=== PATIENT | female | born 1975 | race Caucasian/White ===

== ENCOUNTER → 2016-06-23 | Outpatient (CLI) | payer BC ==
[2016-06-23 09:13] VITALS: BP 181/79; PULSE 93; RESP 16; TEMP 98; BMI 61.9
--- NOTE | 2016-06-23 12:17 | P.GSHP ---
History of Present Illness H&P Date: 06/23/16 Chief Complaint: Morbid Obesity BMI The patient is a 40 year-old F who presents for bariatric surgery consultation. She has chosen to undergo lap RYGB. She had a lap [place] in [address] Davila. Her weight at surgery was 293lbs. she continued to gain more weight in spite of band adjustments. She continued to have reflux nausea and vomiting and lap band was removed in January 2016. Patient denies any reflux symptoms at this time. No right upper quadrant pain. Her comorbid conditions including type 2 diabetes mellitus on insulin pump and gastroesophageal reflux disease and hypercholesterolemia . She has experienced rapid weight gain since Contrave was discontinued in January 2016. Reports hunger and cravings. Work up included: Gastric emptying study showing gastroparesis 24 hr Ph -normal Manometry- mild dysfunction Mammogram- Benign Height 5 feet 1 and half inch, Preop visit #1 weight 302.2 pounds, 140.25 KG, BMI 58.4 Preop visit #2 weight 136.07KG, BMI 55.8 Preop visit #3 weight 151.04KG, BMI 61.9 - Review of Systems Comment: Constitutional: Denies fever, weight loss or loss of appetite HEENT: No difficulty in vision or hearing. Denies dysphagia. Cardiovascular: Denies chest pain, palpitations, dizziness, shortness of breath. Respiratory: No cough or shortness of breath Gastrointestinal: No change in bowel habits Integumentary: No skin ulcers or breakdown. Genitourinary: No urinary incontinence, hematuria or dysuria Neurologic: No seizures, denies weakness in upper or lower extremities Musculoskeletal: Occasional left knee pain. Psychiatry: Known history of depression, no suicidal ideation, no anxiety or psychosis Past Medical History Past Medical History: Diabetes Mellitus Additional Past Medical History / Comment(s): Type 2(USES INSULIN PUMP) History of Any Multi-Drug Resistant Organisms: None Reported Past Surgical History: Bariatric Surgery, Section Additional Past Surgical History / Comment(s): LAP BAND 2002, , LAP BAND REMOVED Past Anesthesia/Blood Transfusion Reactions: No Reported Reaction Past Psychological History: Depression Smoking Status: Never smoker Past Alcohol Use History: Rare Past Drug Use History: None Reported - Past Family History Father Family Medical History: No Reported History Mother Family Medical History: No Reported History Medications and Allergies Home Medications Medication Instructions Recorded Confirmed Type Biotin 5 mg PO HS 01/06/16 06/23/16 History Cetirizine HCl [Zyrtec] 10 mg PO DAILY 01/06/16 06/23/16 History Cholecalciferol (Vitamin D3) 1,000 unit PO DAILY 01/06/16 06/23/16 History [Vitamin D3] Escitalopram [Lexapro] 10 mg PO HS 01/06/16 06/23/16 History INSULIN LISPRO (HumaLOG) [HumaLOG] See Protocol SQ CONTINUOUS 01/29/16 06/23/16 History Multivitamins, Thera [Multivitamin] 1 tab PO DAILY 06/23/16 06/23/16 History buPROPion [Wellbutrin] 100 mg PO DAILY 06/23/16 06/23/16 History Allergies Allergy/AdvReac Type Severity Reaction Status Date / Time No Known Allergies Allergy Verified 06/23/16 09:18 Surgical - Exam Vital Signs Temp Pulse Resp BP 98.0 F 93 16 181/79 06/23/16 09:10 06/23/16 09:10 06/23/16 09:10 06/23/16 09:10 General: Patient is alert and oriented to time, place and person and cooperative with exam. He is not in acute distress. HEENT: No pallor, no icterus, no thyroid enlargement, no cervical lymphadenopathy. Chest: Bilateral equal breath sounds present. No wheezes, no crackles. Cardiovascular: Regular rate and rhythm. Abdomen: Soft, nontender, nondistended. No right upper quadrant tenderness. Quintero sign negative. Well-healed surgical scars located at the umbilicus and both groins. Integumentary: Bilateral lower extremity chronic venous dermatitis. No active ulcers or discharge. Neurologic: Cranial nerves II-XII intact. Strength upper and lower extremities 5/5. No focal neurologic deficits. Gait is normal. Psychiatric: No anxiety or psychosis. No suicidal thoughts. Assessment and Plan (1) Hypercholesteremia Status: Acute (2) Type 2 diabetes mellitus Status: Acute (3) Depression Status: Acute (4) Morbid obesity with BMI of 60.0-69.9, adult Status: Acute (5) Gastroparesis Status: Acute Plan: 1. 40 years old female status post lap band removal for nausea/vomiting and unsuccessful weight loss presents to discuss about revisional bariatric procedure-LAP RYGB 2. CBC, CMP, prealbumin, mineral and vitamin levels and hemoglobin A1c-6.6 3. EGD with possible biopsy- H.pylori negative 4. Gastric emptying study -gastroparesis 5. pH and manometry study : Some evidence of mild esophageal gastric junction outflow obstruction. Demeester score normal i.e no reflux 6. Sleep studies-pending 7. Psychiatric or psychological evaluation pending 8. Encourage attending bariatric support meeting 9. Discussed about small portion sizes, low carbohydrate, high protein drink 10. Daily multivitamin 11. Discussed with Dr. Charlotte Madden regarding rapid weight gain after Contrave was discontinued in January. Patient given referral for wellness clinic and restart Contrave . 12. Tentative surgery date July 2016
== END | disposition home or self-care (01) ==
LOC: BARWHC3 08:18
PROVIDERS: ATTEND Surgery
DX: Z01.818 Encounter for other preprocedural examination (principal); E66.01 Morbid (severe) obesity due to excess calories; Z68.44 Body mass index [BMI] 60.0-69.9, adult; E11.9 Type 2 diabetes mellitus without complications; Z99.89 Dependence on other enabling machines and devices; Z79.4 Long term (current) use of insulin; Z79.899 Other long term (current) drug therapy; E78.00 Pure hypercholesterolemia, unspecified; F32.9 Major depressive disorder, single episode, unspecified; K31.84 Gastroparesis; Z98.84 Bariatric surgery status
CPT/HCPCS: 99211

== ENCOUNTER → 2016-06-28 | Outpatient (CLI) | payer BC ==
[2016-06-28 13:42] VITALS: BMI 61.0
== END | disposition home or self-care (01) ==
LOC: BARWHC3 13:04
PROVIDERS: ATTEND Surgery
DX: Z71.3 Dietary counseling and surveillance (principal); E66.01 Morbid (severe) obesity due to excess calories; Z68.44 Body mass index [BMI] 60.0-69.9, adult

== ENCOUNTER → 2016-06-29 | Outpatient (CLI) | payer BC ==
--- NOTE | 2016-06-29 21:07 | CONS ---
DATE OF CONSULTATION: REASON FOR CONSULTATION: Sleep apnea. 40-year-old morbidly obese female patient is seeking bariatric surgery and she is considering gastric bypass by Dr. Roman. She is diabetic and she has also chronic anxiety/depression. She is morbidly obese. She has gained a significant amount of weight over the years, and currently she weighs around 334 pounds. She snores. She has nocturia, and she occasionally sleep walks. No major hypersomnia and sleepiness during the day. She goes to bed around 9:30 p.m., wakes up at 5:30 a.m. in the morning. 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 She averages around seven and a half to 8 hours of sleep every night. She wakes up a few times for urination. No restlessness in the lower extremities. No grinding of the teeth. [employer] score is 14. PAST MEDICAL HISTORY: Morbid obesity and diabetes mellitus. PAST SURGICAL HISTORY: Lap band insertion and removal. Drug allergies are not known. Outpatient medication list includes: 1. Insulin pump. 2. Zyrtec. 3. Lexapro. 4. Wellbutrin. 5. Multivitamin. 6. Ultram. 7. Biotin. SOCIAL HISTORY: Nonsmoker, no history of alcohol, no history of IV drugs. She is a schoolteacher. FAMILY HISTORY: Family history is negative for sleep apnea. REVIEW OF SYSTEMS: Twelve-point review of systems was done and the positive findings were all mentioned above in the history of present illness. Her current vital signs are as follows: BP is 136/70, pulse is 70, respirations 12 and temperature 98.5. Saturation 95% on room air. Weight is 334. Height is 61-1/2 inches. [employer] score is 14. Neck size is 16-1/2 inches. GENERAL APPEARANCE: Calm, comfortable. HEENT: Short neck, crowding of the posterior pharynx. There is no goiter or neck masses. LUNGS: Clear to auscultation. HEART: Sounds are regular rate and rhythm. Normal S1, S2. No S3, no S4, no murmurs. ABDOMEN: Morbidly obese, soft, nontender. No direct tenderness. No rebound tenderness or guarding. Extremities: No edema. No cyanosis, or clubbing. IMPRESSION: 1. Obstructive sleep apnea suspected based on symptoms and anatomic features, further investigations will be needed to evaluate obstructive sleep apnea. 2. Morbid obesity, body mass index 62. 3. Diabetes mellitus. PLAN: 1. Proceed with a screening polysomnogram. 2. Results will be discussed with Dr. Roman from bariatric surgery. 3. We will continue to follow.
== END | disposition home or self-care (01) ==
LOC: SLEEP 15:07
PROVIDERS: ATTEND Internal Medicine Critical Care Medicine
DX: G47.33 Obstructive sleep apnea (adult) (pediatric) (principal); E66.01 Morbid (severe) obesity due to excess calories; Z68.44 Body mass index [BMI] 60.0-69.9, adult; E11.9 Type 2 diabetes mellitus without complications; F41.8 Other specified anxiety disorders; F51.3 Sleepwalking [somnambulism]; Z79.4 Long term (current) use of insulin; Z79.899 Other long term (current) drug therapy
CPT/HCPCS: 99211

== ENCOUNTER → 2016-08-25 | Outpatient (CLI) | payer BC ==
[2016-08-25 09:11] VITALS: BP 161/89; PULSE 94; RESP 16; TEMP 97.9; BMI 61.2
--- NOTE | 2016-09-01 17:16 | P.GSHP ---
History of Present Illness H&P Date: 08/25/16 Chief Complaint: Morbid Obesity BMI 59 The patient is a 40 year-old F who presents for bariatric surgery consultation. She has chosen to undergo lap RYGB. She had a lap [place] [address] Davila. Her weight at surgery was 293lbs. she continued to gain more weight in spite of band adjustments. She continued to have reflux nausea and vomiting and lap band was removed in January 2016. Patient denies any reflux symptoms at this time. No right upper quadrant pain. Her comorbid conditions including type 2 diabetes mellitus on insulin pump and gastroesophageal reflux disease and hypercholesterolemia . She has experienced rapid weight gain since Contrave was discontinued in January 2016. Reports hunger and cravings. She has been reevaluated by Dr. Johnna Madden and is on diet and exercise program. Work up included: Gastric emptying study showing gastroparesis 24 hr Ph -normal Manometry- mild dysfunction Mammogram- Benign Height 5 feet 1 and half inch, Preop visit #1 weight 302.2 pounds, 140.25 KG, BMI 58.4 Preop visit #2 weight 136.07KG, BMI 55.8 Preop visit #3 weight 151.04KG, BMI 61.9 Preop visit #4 weight 149.4KG BMI 61.2 Review of Systems Constitutional: Denies fever, weight loss or loss of appetite HEENT: No difficulty in vision or hearing. Denies dysphagia. Cardiovascular: Denies chest pain, palpitations, dizziness, shortness of breath. Respiratory: No cough or shortness of breath Gastrointestinal: No change in bowel habits Integumentary: No skin ulcers or breakdown. Genitourinary: No urinary incontinence, hematuria or dysuria Neurologic: No seizures, denies weakness in upper or lower extremities Musculoskeletal: Occasional left knee pain. Psychiatry: Known history of depression, no suicidal ideation, no anxiety or psychosis Past Medical History Past Medical History: Diabetes Mellitus Additional Past Medical History / Comment(s): Type 2(USES INSULIN PUMP) History of Any Multi-Drug Resistant Organisms: None Reported Past Surgical History: Bariatric Surgery, Section Additional Past Surgical History / Comment(s): LAP BAND 2002, , LAP BAND REMOVED Past Anesthesia/Blood Transfusion Reactions: No Reported Reaction Past Psychological History: Depression Smoking Status: Never smoker Past Alcohol Use History: Rare Past Drug Use History: None Reported - Past Family History Father Family Medical History: No Reported History Mother Family Medical History: No Reported History Medications and Allergies Home Medications Medication Instructions Recorded Confirmed Type Biotin 5 mg PO HS 01/06/16 09/14/16 History Cetirizine HCl [Zyrtec] 10 mg PO DAILY 01/06/16 09/14/16 History Cholecalciferol (Vitamin D3) 1,000 unit PO DAILY 01/06/16 09/14/16 History [Vitamin D3] Escitalopram [Lexapro] 10 mg PO HS 01/06/16 09/14/16 History INSULIN LISPRO (HumaLOG) [HumaLOG] See Protocol SQ CONTINUOUS 01/29/16 09/14/16 History Multivitamins, Thera [Multivitamin] 1 tab PO DAILY 06/23/16 09/14/16 History buPROPion [Wellbutrin] 100 mg PO HS 06/23/16 09/14/16 History Allergies Allergy/AdvReac Type Severity Reaction Status Date / Time No Known Allergies Allergy Verified 09/14/16 14:43 Surgical - Exam Vital Signs Temp Pulse Resp BP 97.9 F 94 16 161/89 08/25/16 09:07 08/25/16 09:07 08/25/16 09:07 08/25/16 09:07 General: Patient is alert and oriented to time, place and person and cooperative with exam. He is not in acute distress. HEENT: No pallor, no icterus, no thyroid enlargement, no cervical lymphadenopathy. Chest: Bilateral equal breath sounds present. No wheezes, no crackles. Cardiovascular: Regular rate and rhythm. Abdomen: Soft, nontender, nondistended. No right upper quadrant tenderness. Quintero sign negative. Well-healed surgical scars located at the umbilicus and both groins. Integumentary: Bilateral lower extremity chronic venous dermatitis. No active ulcers or discharge. Neurologic: Cranial nerves II-XII intact. Strength upper and lower extremities 5/5. No focal neurologic deficits. Gait is normal. Psychiatric: No anxiety or psychosis. No suicidal thoughts. Assessment and Plan (1) Depression Status: Acute (2) Gastroparesis Status: Acute (3) Hypercholesteremia Status: Acute (4) Morbid obesity Status: Acute (5) Morbid obesity with BMI of 60.0-69.9, adult Status: Acute (6) Type 2 diabetes mellitus Status: Acute Plan: 1. 40 years old female status post lap band removal for nausea/vomiting and unsuccessful weight loss presents to discuss about revisional bariatric procedure-LAP RYGB 2. CBC, CMP, prealbumin, mineral and vitamin levels and hemoglobin A1c-6.6 3. EGD - H.pylori negative 4. Gastric emptying study -gastroparesis 5. pH and manometry study : Some evidence of mild esophageal gastric junction outflow obstruction. Demeester score normal i.e no reflux 6. Sleep studie 7. Psychiatric or psychological evaluation 8. Encourage attending bariatric support meeting 9. Discussed about small portion sizes, low carbohydrate, high protein drink 10. Daily multivitamin 11. Plan for laparoscopic RYGB . The risks, benefits and potential complications including bleeding, infection, anastomotic leak, DVT, PE were discussed . Possibility of open surgery discussed. Higher complication rate with revisional surgery discussed. If unable to perform lap RYGB, patient has agreed to proceed with lap sleeve gastrectomy.
== END | disposition home or self-care (01) ==
LOC: BARWHC3 08:48
PROVIDERS: ATTEND Surgery
DX: Z01.818 Encounter for other preprocedural examination (principal); E66.01 Morbid (severe) obesity due to excess calories; Z68.44 Body mass index [BMI] 60.0-69.9, adult; Z98.84 Bariatric surgery status; F32.9 Major depressive disorder, single episode, unspecified; K31.84 Gastroparesis; E78.00 Pure hypercholesterolemia, unspecified; E11.9 Type 2 diabetes mellitus without complications; Z79.899 Other long term (current) drug therapy; Z79.4 Long term (current) use of insulin
CPT/HCPCS: 99211

== ENCOUNTER → 2016-08-25 | Outpatient (CLI) | payer BC ==
[2016-08-25 10:17] LABS: EKG EKG PERFORMED
[2016-08-25 10:51] LABS: Basophils % (A) 0 %; CH 25.1; CHCM 30.3; Eosinophils # (A) 0.2 k/uL (0-0.7); Eosinophils % (A) 2 %; HCT 41.3 % (34.0-46.0); HDW 2.49; HGB 13.1 gm/dL (11.4-16.0); Hypochromasia Moderate; Luc # (Auto) 0.28; Luc % (Auto) 2; Lymphocytes # (A) 2.6 k/uL (1.0-4.8); Lymphocytes % (A) 21 %; MCH 26.3 pg (25.0-35.0); MCHC 31.6 g/dL (31.0-37.0); Mean Platelet Volume 7.3; Monocytes # (A) 0.5 k/uL (0-1.0); Monocytes % (A) 4 %; Neutrophils # (A) 8.6 k/uL (1.3-7.7); Neutrophils % (A) 71 %; RBC 4.98 m/uL (3.80-5.40); RDW 15.1 % (11.5-15.5); WBC 12.3 k/uL (3.8-10.6); WBC (Perox) 12.45
[2016-08-25 11:17] LABS: ALT 29 U/L (9-52); AST 22 U/L (14-36); Alkaline Phosphatase 99 U/L (38-126); Anion Gap 10 mmol/L; Blood Urea Nitrogen 15 mg/dL (7-17); Calcium 9.2 mg/dL (8.4-10.2); Carbon Dioxide 26 mmol/L (22-30); Chloride 102 mmol/L (98-107); Glucose 221 mg/dL (74-99); Non-African American GFR(MDRD) >60 (>60 ml/min/1.73 sqM); Potassium 4.6 mmol/L (3.5-5.1); Sodium 138 mmol/L (137-145); Total Bilirubin 0.5 mg/dL (0.2-1.3); Total Protein 8.1 g/dL (6.3-8.2)
== END ==
LOC: LABPAT 10:08
PROVIDERS: ATTEND Surgery
DX: Z01.812 Encounter for preprocedural laboratory examination (principal)
CPT/HCPCS: 80053; 85025; 93005

== ENCOUNTER 2016-09-16 07:30 | Inpatient (IN) | payer BC ==
[~2016-09-16 07:30] MED LIST: DEXAMETHASONE SOD PHOSPHATE 10 MG/ML 1 ML VIAL IV ONE; HYDROmorphone 1 MG/ML 1 ML SYRINGE IVP PRN; LIDOCAINE 1% 20 ML VIAL (10MG/ML) FOR IV START INTRADERMA PRN; MIDAZOLAM 2 MG/2 ML VIAL IV PRN; ONDANSETRON 4 MG/2 ML VIAL IVP ONE; SCOPOLAMINE 1.5MG/72HR PATCH TRANSDERM ONE; ceFAZolin 3 GM in SODIUM CHLORIDE 0.9% 100 ML IVPB ONE
[2016-09-16] MEDS ORDERED: AMPICILLIN-SULBACTAM 3 GM in SODIUM CHLORIDE 0.9% 100 ML IVPB ONE (10:17)
[2016-09-16] MEDS ORDERED: CHLORHEXIDINE GLUCONATE 15 ML CUP MUCOUS MEM ONE (10:17)
[2016-09-16] MEDS ORDERED: ENOXAPARIN 40 MG/0.4 ML SYRINGE SQ STA (10:17)
[2016-09-16] MEDS ORDERED: PANTOPRAZOLE 40 MG/10 ML VIAL IV STA (10:17)
[2016-09-16 11:20] LABS: Glucose,Whole Blood 70 mg/dL (75-99)
[2016-09-16 11:21] LABS: Glucose,Whole Blood 83 mg/dL (75-99)
[2016-09-16] MEDS: LACTATED RINGERS 1,000 ML IV SCH ×3 (11:23→18:04)
[2016-09-16] MEDS ORDERED: HYDROmorphone (PF) 1 MG/ML ONE (11:57)
[2016-09-16] MEDS ORDERED: KETOROLAC 30 MG/ML 1 ML VIAL ONE (11:57)
[2016-09-16] MEDS ORDERED: ONDANSETRON 4 MG/2 ML VIAL ONE (11:57)
[2016-09-16] MEDS ORDERED: MIDAZOLAM 2 MG/2 ML VIAL ONE (11:57)
[2016-09-16] MEDS ORDERED: SUCCINYLCHOLINE CHLORIDE VIAL 200 MG/10 ML VIAL IV ONE (11:57)
[2016-09-16] MEDS ORDERED: LABETALOL 5 MG/ML VIAL MDV ONE (11:57)
[2016-09-16] MEDS ORDERED: LIDOCAINE 1% INJ 10MG/ML (20 ML MDV) ONE (11:57)
[2016-09-16] MEDS ORDERED: fentaNYL (PF) 50 MCG/ML 2 ML AMP ONE (11:57)
[2016-09-16] MEDS ORDERED: ROCURONIUM BROMIDE 10 MG/ML 10 ML VIAL IV ONE (11:57)
[2016-09-16] MEDS ORDERED: GLYCOPYRROLATE 0.2 MG/ML 2 ML VIAL ONE (11:57)
[2016-09-16] MEDS ORDERED: PROPOFOL 10 MG/ML 20 ML VIAL IV ONE (11:57)
[2016-09-16] MEDS ORDERED: NEOSTIGMINE 1 MG/ML 10 ML VIAL ONE (11:57)
[2016-09-16] MEDS ORDERED: BUPIVACAIN-EPI 0.25%-1:200,000 30 ML VIAL SQ ONE ×2 (12:32→12:38)
[2016-09-16] MEDS ORDERED: LACTATED RINGERS 1,000 ML IV ONE ×3 (13:01→15:18)
[2016-09-16 13:27] LABS: Glucose,Whole Blood 119 mg/dL (75-99)
[2016-09-16] MEDS ORDERED: NALOXONE 0.4 MG/ML 1 ML VIAL IV PRN (16:34)
[2016-09-16] MEDS ORDERED: ONDANSETRON 4 MG/2 ML VIAL IVP PRN (16:34)
[2016-09-16] MEDS ORDERED: HYOSCYAMINE ORAL DROPS 1.875 MG/15 ML BOTTLE PO PRN (16:34)
[2016-09-16] MEDS ORDERED: diphenhydrAMINE 50 MG/ML 1 ML VIAL IVP PRN (16:34)
[2016-09-16] MEDS ORDERED: SIMETHICONE 40 MG/0.6 ML DROPS 2,000 MG/30 ML BOTTLE PO PRN (16:34)
--- NOTE | 2016-09-16 16:44 | P.PCN ---
Date of Procedure: 09/16/16 Description of Procedure: PREOPERATIVE DIAGNOSIS: s/p Donald-en-y gastric bypass. Morbid obesity. Gastroesophageal reflux disease. POSTOPERATIVE DIAGNOSIS: s/p Donald-en-y gastric bypass. Morbid obesity. Gastroesophageal reflux disease. OPERATION: Esophagogastrojejunoscopy, intraoperative. SURGEON: Suma Noyola MD ANESTHESIA: GETA INDICATIONS: The patient is a 40-year-old female who presents for a gastric bypass with Dr. Roman. On request of Dr. Roman, an intraoperative EGJ was requested with benefits and risks described by attending surgeon. DESCRIPTION: Please see operative report of Dr. Roman. Upon completion of the gastric bypass, I went ahead the bed to perform an intraoperative EGJ. The scope was navigated down to distal esophagus. The pouch had minimal blood which was aspirated from the pouch. The stoma of the anastomosis was widely patent. No evidence of leak was found. This concluded the endoscopy portion of the case. The patient tolerated the procedure well. FINDINGS: Negative leak test. Patent 25 mm gastrojejunal anastomosis.
--- NOTE | 2016-09-16 16:44 | P.OP ---
Date of Procedure: 09/16/16 Preoperative Diagnosis: Morbid obesity BMI 59 Type 2 diabetes mellitus requiring insulin pump Hypercholesterolemia Depression History of lap band placement and removal Postoperative Diagnosis: Same Procedure(s) Performed: Laparoscopic Donald-en-Y gastric bypass( revisional bariatric surgery prior history of lap band placement and removal) Intraoperative EGJ Anesthesia: ARIANA local Surgeon: Astrid Roman [employer] #1: Suma Noyola Estimated Blood Loss (ml): 50 Pathology: none sent Condition: stable (ASA) Disposition: PACU Indications for Procedure: 40 old female with multiple comorbid conditions including morbid obesity with BMI of 60 presents for Donald-en-Y gastric bypass. Informed consent obtained patient elected to undergo the procedure. Operative Findings: Antecolic antigastric Donald-en-Y gastric bypass > 200 cm of small bowel bypassed Description of Procedure: The patient was brought to the operating room and placed in supine position with both arms out. General anesthesia with endotracheal intubation was performed as per anesthesia team. A Loya catheter was inserted using sterile aseptic precautions. Bilateral lower extremity SCDs were placed. Patient was secured to the operating table using to secure straps and a footboard was placed. Chlorhexidine was used to prep the skin followed by sterile drapes and Ioban. A timeout was performed to verify correct patient and correct procedure. Patient was confirmed to receive perioperative IV antibiotics and Lovenox subcutaneous injection for VTE prophylaxis. A 1.5 cm skin incision was made in the left anterior axillary line below the costal margin and pneumoperitoneum was established to a pressure of 15 mm of Hg using a Veress needle. Patient tolerated the pneumoperitoneum well. A 10 mm trocar was loaded on a 5 mm 30 laparoscope and peritoneal cavity was entered using the Optiview technique. Additional 10 mm trocar was placed inferior and left of the umbilicus for a camera . Two 10 mm trocars working ports were placed : one at the level of falciform and the other in right lower quadrant. The abdominal cavity was inspected. Attention was directed towards creation of jejunojejunostomy. The omentum was reflected towards the upper abdomen and the transverse colon identified. The transverse mesocolon was elevated and ligament of Treitz identified. The small bowel was run 65 cm distal to the ligament of Treitz and was divided using Ethicon stapler 60 white load. There was noted bleeding noted from the cut end of the mesentery which was controlled with application of endoclips. A Eureka drain was attached to the distal limb. The small bowel was run 160 cm distally from this point. It was oriented in C- configuration to avoid any torsion or kink. A seromuscular stitch of 3-0 silk was placed between the BP limb and the Donald limb to act as a traction suture. Controlled enterotomy was created in either small bowel limb using monopolar function of LigaSure advance. Care was taken not to backwall the bowel. Covidien stapler 60 david load was fired in antegrade direction to create a [id number] jejunojejunostomy. Additional seromuscular stitch of 3-0 silk was placed which acted as a distal stay suture . Covidien stapler 45 david load was fired in retrograde direction to create a 90 mm [id number] anastomosis. The 2 stay sutures were pulled up and final enterotomy was closed using Covidien stapler 60 david load. The anastomosis was patent and without any tension. There was some bleeding noted from the staple line which was controlled with endoclips. The greater omentum was divided using LigaSure . Patient was then placed in reverse Trendelenburg. A 5 mm incision was made in the epigastrium to insert the liver retractor to retract the left lobe of the liver. There were scar tissue and stitches from prior lap band surgery. Decision was made to go distal to this suture line to create a long narrow pouch The angle of His was bluntly mobilized using retrogastric tunneling device .Fenestrated graspers were used to bluntly dissect and create retrogastric tunnel. Covidien 60 staplepurple load was fired . Additional reinforced two purple 60mm loads were used to create a 50 ml gastric pouch . A 25 mm Orvil was passed per orally by the anesthesia team. The orogastric blunt tip of the Orvil was positioned anterior to the staple line. A controlled opening was made in the gastric pouch using the monopolar function and Orvil tip was exteriorized. The orogastric tube was pulled without any tension till the Orvil stapler was identified. The suture was cut and the remaining tube was removed from the abdomen. The previously placed Eureka drain was identified and the Donald limb was brought up to the gastric pouch without any undue tension. The small bowel was opened up and left upper quadrant trocar site was upsized to a 15 mm. The 25 mm EEA was inserted into the abdomen after dilating the track with Nataliya clamp. The EEA was easily inserted via the cut end of the Donald limb. The stapler was gradually opened till the orange ring was identified. The EEA stapler was fired after both ends of the stapler were locked in position and closed. The EEA was then removed from the abdomen. Both the anastomotic donuts were complete. A 60 mm Ethicon white load was used to divide the open end of the Donald limb. This segment of the small bowel along with Eureka drain was placed in an Endo Catch bag and was removed from the abdomen. A 15 mm balloon trocar was inserted to re-create pneumoperitoneum. The gastrojejunostomy anastomosis not show any evidence of kink or torsion. Using continuous sutures of 3-0 silk, the Ulloa defect between the transverse mesocolon and Donald limb was closed. The C loop configuration of Donald limb was checked. The mesentery defect between the jejunojejunostomy was closed using continuous sutures of 3-0 silk. This is to prevent potential internal hernias. An empty staple cartridge was placed distal to the gastrojejunostomy in the Donald limb. Dr. Noyola proceeded with esophagogastrojejunoscopy. The abdominal cavity was filled with normal saline. No evidence of staple line bleeding. Both the afferent and efferent limbs of small bowel could be easily intubated. No anastomotic stricture. No air leak No air leak identified. The anastomosis was widely patent. The scope was then removed after suctioning the excess air. Tisseal was applied over the staple line. The 15 mm trocar site was closed with 2 trans-fascial stitches of 0 Vicryl which was placed using a Gael Carolyn device. The trocar site was copiously irrigated with 1 L of normal saline. All the trocar sites were closed with interrupted sutures of 3-0 Vicryl followed by running subcuticular stitches of 4-0 Monocryl. Dermabond skin glue was applied. The sponge, instrument and needle count were correct x2. Patient tolerated the procedure well and was taken to post anesthesia care unit in stable condition
[2016-09-16] MEDS ORDERED: ACETAMINOPHEN IV (For NPO) 1,000 MG in EMPTY BAG 1 BAG IVPB ONE (17:00)
[2016-09-16 17:07] LABS: Glucose,Whole Blood 166 mg/dL (75-99)
[2016-09-16] MEDS: INSULIN LISPRO (humaLOG) 300 UNIT/3 ML VIAL SQ SCH (20:09)
[2016-09-16 20:10] LABS: Glucose,Whole Blood 192 mg/dL (75-99)
[2016-09-16] MEDS: ALBUTEROL NEBULIZED 2.5 MG/3 ML INHALATION SCH (20:30)
[2016-09-16] MEDS: HYDROmorphone 1 MG/ML 1 ML SYRINGE IVP PRN (23:04)
[2016-09-17] MEDS: HYDROmorphone 1 MG/ML 1 ML SYRINGE IVP PRN ×3 (03:41→10:09)
[2016-09-17] MEDS: LACTATED RINGERS 1,000 ML IV SCH ×5 (04:22→13:39)
[2016-09-17 07:17] LABS: Glucose,Whole Blood 191 mg/dL (75-99)
[2016-09-17] MEDS: MULTIVITAMINS, THERA 1 EACH TAB PO SCH (07:35)
[2016-09-17] MEDS: CHOLECALCIFEROL 1,000 UNIT TAB PO SCH (07:35)
[2016-09-17] MEDS: ENOXAPARIN 40 MG/0.4 ML SYRINGE SQ SCH (07:38)
[2016-09-17] MEDS: INSULIN LISPRO (humaLOG) 300 UNIT/3 ML VIAL SQ SCH ×4 (07:38→21:36)
[2016-09-17] MEDS: PANTOPRAZOLE 40 MG/10 ML VIAL IV SCH (07:39)
[2016-09-17 08:20] LABS: Basophils % (A) 0 %; CH 25.8; Eosinophils % (A) 0 %; HCT 37.3 % (34.0-46.0); HDW 2.52; HGB 11.4 gm/dL (11.4-16.0); Hypochromasia Slight; Luc # (Auto) 0.17; Luc % (Auto) 1; Lymphocytes # (A) 1.8 k/uL (1.0-4.8); Lymphocytes % (A) 10 %; MCH 25.4 pg (25.0-35.0); MCHC 30.5 g/dL (31.0-37.0); MCV 83.3 fL (80.0-100.0); Mean Platelet Volume 7.4; Monocytes # (A) 0.9 k/uL (0-1.0); Monocytes % (A) 5 %; Neutrophils # (A) 14.9 k/uL (1.3-7.7); Neutrophils % (A) 84 %; RBC 4.48 m/uL (3.80-5.40); RDW 15.3 % (11.5-15.5); WBC 17.8 k/uL (3.8-10.6); WBC (Perox) 18.58
[2016-09-17 08:41] LABS: Anion Gap 10 mmol/L; Blood Urea Nitrogen 11 mg/dL (7-17); Calcium 8.3 mg/dL (8.4-10.2); Carbon Dioxide 25 mmol/L (22-30); Chloride 104 mmol/L (98-107); Magnesium 1.5 mg/dL (1.6-2.3); Non-African American GFR(MDRD) >60 (>60 ml/min/1.73 sqM); Phosphorous 3.5 mg/dL (2.5-4.5); Sodium 139 mmol/L (137-145)
[2016-09-17] MEDS: ALBUTEROL NEBULIZED 2.5 MG/3 ML INHALATION SCH ×4 (08:53→21:26)
--- NOTE | 2016-09-17 08:58 | FL ---
EXAMINATION TYPE: FL UGI DATE OF EXAM: 09/17/2016 8:42 AM COMPARISON: 4 scopic exam dated 01/06/2016. HISTORY: Recent Donald-en-Y. TECHNIQUE: A single contrast UGI study is performed. FINDINGS: Automatic Pinsetter Adjuster image of the abdomen shows no gross abnormality. The esophagus shows normal motility and emptying into the stomach. No evidence of hiatal hernia or s tricture noted. The stomach shows normal distensibility, peristalsis, and mucosal folds. There is no evidence of cont rast extravasation. Contrast extends readily through the postsurgical gastric pouch into the proximal small bowel. The duodenal bulb, sweep, and proximal small bowel loops are unremarkable. IMPRESSION: Normal post Donald-en-Y upper GI study with no evidence of contrast extravasation or obstr uction.
[2016-09-17 11:52] LABS: Glucose,Whole Blood 197 mg/dL (75-99)
[2016-09-17] MEDS: ACETAMINOPHEN IV (For NPO) 1,000 MG in EMPTY BAG 1 BAG IVPB SCH ×2 (11:56→17:02)
[2016-09-17 11:57] LABS: Hemoglobin A1C 6.7 % (4.2-6.1)
[2016-09-17] MEDS: MAGNESIUM SULFATE-D5W PMX 1 GM in DEXTROSE/WATER 1 100ML.BAG IVPB SCH ×4 (11:57→21:33)
--- NOTE | 2016-09-17 12:46 | P.PN ---
Subjective 40-year-old female seen and examined this morning currently resting in bed. Patient states pain medication effective for pain control. Denying chest pain or shortness of breath. With coaching patient can use the incentive spirometer achieving 1500. Patient has multiple comorbid conditions including morbid obesity with a BMI of 60 with type 2 diabetes with an insulin pump history of obstructive sleep apnea on no CPAP therapy at home on September 16 postop Laparoscopic Donald-en-Y gastric bypass( revisional bariatric surgery prior history of lap band placement and removal) Intraoperative EGJ Objective - Vital Signs Vital signs: Vital Signs Temp 97.7 F 09/17/16 07:00 Pulse 93 09/17/16 12:07 Resp 16 09/17/16 07:00 BP 112/56 09/17/16 07:00 Pulse Ox 91 L 09/17/16 10:47 Intake & Output 09/16/16 09/17/16 09/17/16 18:59 06:59 18:59 Intake Total 3900 1800 Output Total 250 750 Balance 3650 1050 Weight 143.9 kg Intake: IV 3900 Intake, IV Titration 1800 Amount Lactated Ringers 1,000 ml 1800 @ 150 mls/hr IV .Q6H40M [facility] Rx#:[id number] Output: Urine 200 750 Estimated Blood Loss 50 Other: Voiding Method Indwelling Catheter - Exam Physical exam 40-year-old female resting in bed pleasant cooperative oriented 3 Lungs essentially clear sats on 2 L are 91% no cough noted with coaching can use the incentive spirometer achieving 1000 Heart S1-S2 audible regular denying chest pain Abdomen obese soft surgical sites no redness bowel tones present Indwelling Loya catheter just removed has not voided since Extremities no edema noted - Labs CBC & Chem 7: 09/17/16 07:41 09/17/16 07:41 Labs: Abnormal Lab Results - Last 24 Hours (Table) 09/16/16 09/16/16 09/16/16 Range/Units 13:25 16:53 20:08 WBC (3.8-10.6) k/uL MCHC (31.0-37.0) g/dL Neutrophils # (1.3-7.7) k/uL POC Glucose (mg/dL) 119 H 166 H 192 H (75-99) mg/dL Hemoglobin A1c (4.2-6.1) % Calcium (8.4-10.2) mg/dL Magnesium (1.6-2.3) mg/dL 09/17/16 09/17/16 09/17/16 Range/Units 07:14 07:36 07:41 WBC 17.8 H (3.8-10.6) k/uL MCHC 30.5 L (31.0-37.0) g/dL Neutrophils # 14.9 H (1.3-7.7) k/uL POC Glucose (mg/dL) 191 H (75-99) mg/dL Hemoglobin A1c 6.7 H (4.2-6.1) % Calcium (8.4-10.2) mg/dL Magnesium (1.6-2.3) mg/dL 09/17/16 09/17/16 Range/Units 07:41 11:46 WBC (3.8-10.6) k/uL MCHC (31.0-37.0) g/dL Neutrophils # (1.3-7.7) k/uL POC Glucose (mg/dL) 197 H (75-99) mg/dL Hemoglobin A1c (4.2-6.1) % Calcium 8.3 L (8.4-10.2) mg/dL Magnesium 1.5 L (1.6-2.3) mg/dL Assessment and Plan Plan: Impression Laparoscopic Donald-en-Y gastric bypass( revisional bariatric surgery prior history of lap band placement and removal) Intraoperative EGJ done on September 16 Morbid obesity BMI 59 Obstructive sleep apnea Type 2 diabetes requiring insulin pump hemoglobin A1c 6.7 Hypertension Electrolyte abnormality abnormal lab values hypo- magnesium 1.5 Leukocytosis likely reactive Anxiety mood disorder Plan Continue postop surgical care as ordered Continue recommendations by internal medicine service Nutritional support DVT and GI prophylaxis Magnesium to be replaced Repeat labs in the morning Increase activity as tolerated Encourage the use of an incentive spirometer The above dictated assessment and findings were discussed with dr mane Impression and the plan of care have been dictated as directed. Crys Macdonald nurse practitioner acting as a scribe for dr mnae
[2016-09-17 14:20] VITALS: BMI 58.9
--- NOTE | 2016-09-17 15:43 | P.CONS ---
History of Present Illness - Reason for Consult Consult date: 09/17/16 medical managent Requesting physician: Astrid Roman - Chief Complaint raghu en y surgery for bariatric weight loss - History of Present Illness This is a pleasant 40-year-old lady patient of Dr. Steven. She has underlying history off diabetes mellitus type 2, and morbid obesity fall and depression for which she underwent a Raghu-en-Y surgery performed by Dr. archibald today via laparoscopic procedure, he follows with Dr. Nieves Madden for her insulin pump, she does not have any new problems today including shortness of breath or chest pain, no difficulty of breathing, blood sugars are around 166-197 with the lowest of 83 prior to surgery month to her pump she requires about 1 vial every 9 days, patient does not know her actual amount of insulin per day, her A1c is between 6-6.7, Dr. Ivy Madden has been managing her insulin pump prior to admission Review of Systems Constitutional: Reports as per HPI, Denies anorexia, Denies chills, Denies chronic headaches, Denies chronic pain, Denies daytime sleepiness, Denies fatigue, Denies fever, Denies lethargy, Denies malaise, Denies night sweats, Denies poor appetite, Denies sweats, Denies weakness, Denies weight gain, Denies weight loss Ears, nose, mouth and throat: Reports as per HPI, Denies ant. neck pain, Denies bleeding gums, Denies dental pain, Denies dysphagia, Denies epistaxis, Denies headache, Denies hoarseness, Denies mouth pain, Denies nasal congestion, Denies nasal discharge, Denies neck fullness/pressure, Denies neck lump, Denies nose pain, Denies odynophagia, Denies post-nasal drip, Denies sinus pain, Denies sinus pressure, Denies swelling in mouth, Denies swelling in throat, Denies sore throat, Denies vertigo, Denies voice changes Cardiovascular: Reports as per HPI, Denies chest pain, Denies claudication, Denies decreased exercise tolerance, Denies dyspnea on exertion, Denies edema, Denies high blood pressure, Denies irregular heart beat, Denies leg edema, Denies lightheadedness, Denies orthopnea, Denies palpitations, Denies paroxysmal nocturnal dyspnea, Denies phlebitis, Denies rapid heart beat, Denies shortness of breath, Denies syncope Respiratory: Reports as per HPI, Denies congestion, Denies cough, Denies cough with sputum, Denies dyspnea, Denies excessive sputum, Denies hemoptysis, Denies home oxygen, Denies pain, Denies pain on inspiration, Denies pleurisy, Denies respiratory infections, Denies sleep apnea, Denies snoring, Denies wheezing Gastrointestinal: Reports as per HPI, Denies abdominal pain, Denies belching, Denies bloating, Denies BRBPR, Denies change in bowel habits, Denies coffee ground emesis, Denies constipation, Denies diarrhea, Denies dyspepsia, Denies early satiety, Denies excessive gas, Denies heartburn, Denies hematemesis, Denies hematochezia, Denies indigestion, Denies jaundice, Denies lactose intolerance, Denies loss of appetite, Denies melena, Denies nausea, Denies vomiting Genitourinary: Reports as per HPI, Denies abnormal vaginal bleeding, Denies decreased libido, Denies difficulty conceiving, Denies difficulty voiding, Denies dysmenorrhea, Denies dyspareunia, Denies dysuria, Denies flank pain, Denies genital sores, Denies hematuria, Denies hot flashes, Denies incomplete emptying, Denies kidney stones, Denies menorrhagia, Denies mixed incontinence, Denies nocturia, Denies pelvic pain, Denies post void dribbling, Denies , Denies prolapse symptoms, Denies stress incontinence, Denies urge incontinence , Denies urgency, Denies urinary frequency, Denies vaginal discharge, Denies vaginal dryness, Denies vaginal itching, Denies vaginal odor Menstruation: Reports as per HPI, Denies amenorrhea, Denies amenorrhea on BC, Denies currently menstrual, Denies cycle < 21 days, Denies cycle > 35 days, Denies cycle variable, Denies menses 1-7 days, Denies menses 8 or > days, Denies menses variable, Denies period heavy, Denies period light, Denies period normal, Denies period spotting, Denies post hysterectomy, Denies postmenopausal , Denies premenarcheal Musculoskeletal: Reports as per HPI, Denies arm numbness/tingling, Denies atrophy, Denies fractures, Denies frequent falls, Denies gait dysfunction, Denies hot joints, Denies leg numbness/tingling, Denies limitation of motion, Denies loss of height, Denies low back pain, Denies morning stiffness, Denies muscle cramps, Denies muscle weakness, Denies myalgias, Denies neck pain, Denies neck stiffness, Denies prior amputations, Denies redness of joints, Denies shooting arm pain, Denies shooting leg pain Integumentary: Reports as per HPI, Denies acne, Denies boils, Denies brittle nails, Denies change in hair/nails, Denies color changes, Denies darkening of skin, Denies depigmentation, Denies dryness, Denies foot/leg ulcers, Denies growths, Denies hirsutism, Denies lesions, Denies onychomycosis, Denies pruritus , Denies rash, Denies sores, Denies striae, Denies unusual bruising, Denies wounds Neurological: Reports as per HPI, Denies aphasia, Denies ataxia, Denies balance difficulties, Denies burning pain, Denies change in mentation, Denies change in smell/taste, Denies change in speech, Denies confusion, Denies convulsions, Denies double vision, Denies gait dysfunction, Denies head injury, Denies headaches, Denies hearing difficulties, Denies lack of coordination, Denies loss of vision, Denies memory loss, Denies migraines, Denies motor disturbance, Denies numbness, Denies paralysis, Denies paresthesias, Denies seizures, Denies sensory deficit, Denies spasticity, Denies syncope, Denies tic, Denies tingling , Denies transient paralysis, Denies tremors, Denies vertigo, Denies weakness, Denies visual changes Psychiatric: Reports as per HPI, Denies anhedonia, Denies anxiety, Denies anxiety attacks, Denies change in appetite, Denies change in libido, Denies change in sleep habits, Denies confusion, Denies depression, Denies difficulty concentrating, Denies disorientation, Denies hallucinations, Denies hopelessness , Denies hypersomnia, Denies insomnia, Denies irritability, Denies memory loss, Denies mood swings, Denies paranoia, Denies sadness/tearfulness, Denies sleep disturbances, Denies suicidal ideation Endocrine: Reports as per HPI, Denies cold intolerance, Denies deepening of the voice, Denies excessive sweating, Denies excessive thirst, Denies fatigue, Denies flushing, Denies heat intolerance, Denies high blood sugars, Denies increase in ring/shoe/hat size, Denies low blood sugars, Denies nocturia, Denies palpitations, Denies polydipsia, Denies polyphagia, Denies polyuria, Denies proptosis, Denies recent glucocorticoid use, Denies thyroid mass, Denies weight change Hematologic/Lymphatic: Reports as per HPI, Denies easy bleeding, Denies easy bruising, Denies lymphadenopathy, Denies lymphedema, Denies thrombophilia Allergic/Immunologic: Reports as per HPI, Denies allergic rhinitis, Denies anaphylaxis, Denies angioedema, Denies gluten intolerance, Denies persistent infections, Denies seasonal allergies, Denies urticaria, Denies wheezing Past Medical History Past Medical History: Diabetes Mellitus Additional Past Medical History / Comment(s): hx. gastric ulcer History of Any Multi-Drug Resistant Organisms: None Reported Past Surgical History: Bariatric Surgery, Section Additional Past Surgical History / Comment(s): LAP BAND 2002, LAP BAND REMOVED, EGD Past Anesthesia/Blood Transfusion Reactions: No Reported Reaction Past Psychological History: Depression Smoking Status: Never smoker Past Alcohol Use History: Rare Past Drug Use History: None Reported - Past Family History Father Family Medical History: No Reported History Mother Family Medical History: No Reported History Brother(s) Family Medical History: No Reported History Sister(s) Family Medical History: No Reported History Son(s) Family Medical History: No Reported History Medications and Allergies Home Medications Medication Instructions Recorded Confirmed Type Biotin 5 mg PO HS 01/06/16 09/16/16 History Cetirizine HCl [Zyrtec] 10 mg PO DAILY 01/06/16 09/16/16 History Escitalopram [Lexapro] 10 mg PO HS 01/06/16 09/16/16 History INSULIN LISPRO (HumaLOG) [HumaLOG] See Protocol SQ CONTINUOUS 01/29/16 09/16/16 History Multivitamins, Thera [Multivitamin] 1 tab PO DAILY 06/23/16 09/16/16 History buPROPion [Wellbutrin] 100 mg PO HS 06/23/16 09/16/16 History Cholecalciferol [Vitamin D3] 1,000 unit PO DAILY 09/16/16 09/16/16 History Allergies Allergy/AdvReac Type Severity Reaction Status Date / Time No Known Allergies Allergy Verified 09/14/16 14:43 Physical Exam Vitals: Vital Signs Temp Pulse Pulse Pulse Resp BP Pulse Ox 09/17/16 14:54 98.2 F 99 17 104/65 09/17/16 12:07 93 09/17/16 11:53 89 09/17/16 10:47 91 L 09/17/16 09:05 97 09/17/16 08:55 92 95 09/17/16 08:00 105 H 09/17/16 07:00 97.7 F 105 H 16 112/56 95 09/16/16 23:16 85 L 09/16/16 23:12 92 L 09/16/16 20:31 95 09/16/16 20:15 91 104/55 91 L 09/16/16 20:00 90 95/62 94 L 09/16/16 19:45 90 97/58 95 09/16/16 19:30 88 115/57 95 09/16/16 19:15 89 107/57 95 09/16/16 19:00 89 99/53 94 L 09/16/16 18:45 88 110/56 94 L 09/16/16 18:30 84 102/52 09/16/16 18:15 82 98/51 95 09/16/16 18:00 96.8 F L 85 16 106/53 93 L 09/16/16 17:27 93 L 09/16/16 17:15 81 20 153/80 93 L 09/16/16 17:00 79 20 146/80 95 09/16/16 16:45 77 20 158/85 94 L 09/16/16 16:33 97.6 F 75 28 H 175/90 95 Intake and Output 09/17/16 09/17/16 09/17/16 06:59 14:59 22:59 Intake Total 1350 Output Total 750 Balance 600 Intake: Intake, IV Titration 1350 Amount Lactated Ringers 1,000 ml 1350 @ 150 mls/hr IV .Q6H40M [facility] Rx#:[id number] Output: Urine 750 Other: Weight 143.9 kg Patient Weight 09/18/16 06:59 Weight 143.9 kg - Constitutional General appearance: cooperative, no acute distress, obese - EENT Eyes: anicteric sclerae, EOMI, PERRLA, dentition normal ENT: NA/AT, normal oropharynx - Neck Neck: no lymphadenopathy, normal ROM, no other, no rigidity, no stridor, no thyromegaly Thyroid: bilateral: normal size - Respiratory Respiratory: bilateral: CTA, negative: diminished, dullness, rales, rhonchi - Cardiovascular Rhythm: regular Heart sounds: normal: S1, S2 Abnormal Heart Sounds: no systolic murmur, no diastolic murmur, no rub, no S3 Gallop, no S4 Gallop, no click, no other - Gastrointestinal General gastrointestinal: normal bowel sounds, soft - Integumentary Integumentary: normal, normal turgor - Neurologic Neurologic: CNII-XII intact - Musculoskeletal Musculoskeletal: gait normal, strength equal bilaterally - Psychiatric Psychiatric: A&O x's 3, intact judgment & insight Results CBC & Chem 7: 09/17/16 07:41 09/17/16 07:41 Labs: Abnormal Lab Results - Last 24 Hours (Table) 09/16/16 09/16/16 09/17/16 Range/Units 16:53 20:08 07:14 WBC (3.8-10.6) k/uL MCHC (31.0-37.0) g/dL Neutrophils # (1.3-7.7) k/uL POC Glucose (mg/dL) 166 H 192 H 191 H (75-99) mg/dL Hemoglobin A1c (4.2-6.1) % Calcium (8.4-10.2) mg/dL Magnesium (1.6-2.3) mg/dL 09/17/16 09/17/16 09/17/16 Range/Units 07:36 07:41 07:41 WBC 17.8 H (3.8-10.6) k/uL MCHC 30.5 L (31.0-37.0) g/dL Neutrophils # 14.9 H (1.3-7.7) k/uL POC Glucose (mg/dL) (75-99) mg/dL Hemoglobin A1c 6.7 H (4.2-6.1) % Calcium 8.3 L (8.4-10.2) mg/dL Magnesium 1.5 L (1.6-2.3) mg/dL 09/17/16 Range/Units 11:46 WBC (3.8-10.6) k/uL MCHC (31.0-37.0) g/dL Neutrophils # (1.3-7.7) k/uL POC Glucose (mg/dL) 197 H (75-99) mg/dL Hemoglobin A1c (4.2-6.1) % Calcium (8.4-10.2) mg/dL Magnesium (1.6-2.3) mg/dL Assessment and Plan Plan: 1. Laparoscopic Raghu-en-Y surgery for bariatric weight loss program BMI of 59, patient currently is doing well, please will be initiated today, upper GI series was performed that failed to reveal any obstruction or extravasation of contrast, patient would continue on incentive spirometry program, pain is under control. 2. Diabetes mellitus type 2 on insulin pump, insulin pump was discontinued, and would start on basal bolus regimen, Lantus at 25 units started tonight, and a sliding scale coverage. This would need to be recalculated once more diet will be reintroduced 3. Depression on citalopram and Wellbutrin 4. ALLERGIC rhinitis currently asymptomatic VTEprophylaxis on Lovenox GI prophylaxis Page acute Dr. Roman and allowing us to precipitate the care of patient. We are going to follow her with you during her recovery program the hospital, recommendations will be made based on her progress,
[2016-09-17 17:33] LABS: Glucose,Whole Blood 199 mg/dL (75-99)
[2016-09-17] MEDS: NYSTATIN 100,000 UNIT/GM POWD 15 GM TOPICAL SCH ×2 (17:37→21:35)
[2016-09-17] MEDS: INSULIN GLARGINE 100 UNIT/ML 10 ML VIAL SQ SCH (21:35)
[2016-09-17 21:37] LABS: Glucose,Whole Blood 179 mg/dL (75-99)
[2016-09-17] MEDS: HYDROcodone/APAP 5-325MG 1 EACH TAB PO PRN (21:49)
[2016-09-17] MEDS: ESCITALOPRAM 10 MG TAB PO SCH (22:07)
[2016-09-17] MEDS: buPROPion 100 MG TAB PO SCH (22:07)
[2016-09-18] MEDS: LACTATED RINGERS 1,000 ML IV SCH ×3 (01:22→21:33)
[2016-09-18] MEDS: buPROPion 100 MG TAB PO SCH ×2 (01:22→21:31)
[2016-09-18] MEDS: ACETAMINOPHEN IV (For NPO) 1,000 MG in EMPTY BAG 1 BAG IVPB SCH ×2 (01:24→05:50)
[2016-09-18 07:20] LABS: Basophils % (A) 0 %; CH 25.6; CHCM 30.6; Eosinophils # (A) 0.6 k/uL (0-0.7); Eosinophils % (A) 5 %; HCT 34.4 % (34.0-46.0); HDW 2.52; HGB 10.8 gm/dL (11.4-16.0); Hypochromasia Moderate; Luc # (Auto) 0.15; Luc % (Auto) 1; Lymphocytes # (A) 1.9 k/uL (1.0-4.8); Lymphocytes % (A) 15 %; MCH 26.3 pg (25.0-35.0); MCHC 31.3 g/dL (31.0-37.0); MCV 83.9 fL (80.0-100.0); Mean Platelet Volume 7.6; Monocytes # (A) 0.5 k/uL (0-1.0); Monocytes % (A) 4 %; Neutrophils # (A) 9.2 k/uL (1.3-7.7); Neutrophils % (A) 75 %; RDW 15.4 % (11.5-15.5); WBC 12.4 k/uL (3.8-10.6); WBC (Perox) 12.97
[2016-09-18 07:28] LABS: ALT 75 U/L (9-52); AST 62 U/L (14-36); Alkaline Phosphatase 61 U/L (38-126); Anion Gap 7 mmol/L; Blood Urea Nitrogen 8 mg/dL (7-17); Carbon Dioxide 29 mmol/L (22-30); Chloride 102 mmol/L (98-107); Glucose 147 mg/dL (74-99); Magnesium 2.1 mg/dL (1.6-2.3); Non-African American GFR(MDRD) >60 (>60 ml/min/1.73 sqM); Potassium 3.9 mmol/L (3.5-5.1); Sodium 138 mmol/L (137-145); Total Bilirubin 0.3 mg/dL (0.2-1.3)
[2016-09-18 07:40] LABS: Glucose,Whole Blood 160 mg/dL (75-99)
[2016-09-18] MEDS ORDERED: BISACODYL 5 MG TABLET.DR PO PRN (08:00)
[2016-09-18] MEDS: INSULIN LISPRO (humaLOG) 300 UNIT/3 ML VIAL SQ SCH ×4 (10:25→20:58)
[2016-09-18] MEDS: ENOXAPARIN 60 MG/0.6 ML SYRINGE SQ SCH ×2 (10:35→21:32)
[2016-09-18] MEDS: MULTIVITAMINS, THERA 1 EACH TAB PO SCH ×2 (10:35→10:47)
[2016-09-18] MEDS: CHOLECALCIFEROL 1,000 UNIT TAB PO SCH (10:35)
[2016-09-18] MEDS: NYSTATIN 100,000 UNIT/GM POWD 15 GM TOPICAL SCH ×3 (10:36→21:33)
[2016-09-18] MEDS: PANTOPRAZOLE 40 MG/10 ML VIAL IV SCH (10:47)
[2016-09-18] MEDS: ENOXAPARIN 40 MG/0.4 ML SYRINGE SQ SCH (10:49)
[2016-09-18 11:39] LABS: Glucose,Whole Blood 161 mg/dL (75-99)
[2016-09-18] MEDS: ALBUTEROL NEBULIZED 2.5 MG/3 ML INHALATION SCH ×4 (12:31→19:24)
--- NOTE | 2016-09-18 13:10 | P.PN ---
Subjective Principal diagnosis: s/p Gastric bypass Patient is doing ok . Pain is well controlled. She is still short of breatha nd O2 dependant. She did get up and shower. HEr oral intake has been marginal Objective - Vital Signs Vital signs: Vital Signs Temp 97.3 F L 09/18/16 07:00 Pulse 94 09/18/16 12:33 Resp 18 09/18/16 07:00 BP 123/74 09/18/16 07:00 Pulse Ox 86 L 09/18/16 12:34 Intake & Output 09/17/16 09/18/16 09/18/16 18:59 06:59 18:59 Weight 143.9 kg Other: Voiding Method Toilet Toilet Self-Catheterization # Voids 2 1 1 - Constitutional General appearance: Present: morbidly obese - EENT Eyes: Present: anicteric sclerae, EOMI - Neck Neck: Present: normal ROM - Respiratory Details: still o2 dependant Not using her incentive spirometry frequently. - Cardiovascular Rhythm: regular - Gastrointestinal Gastrointestinal Comment(s): Abdomen is appropriately tender, incisions are clean dry and intact. - Labs CBC & Chem 7: 09/18/16 06:30 09/18/16 06:30 Labs: Abnormal Lab Results - Last 24 Hours (Table) 09/17/16 09/17/16 09/18/16 Range/Units 17:26 21:18 06:30 WBC 12.4 H (3.8-10.6) k/uL Hgb 10.8 L (11.4-16.0) gm/dL Neutrophils # 9.2 H (1.3-7.7) k/uL Glucose (74-99) mg/dL POC Glucose (mg/dL) 199 H 179 H (75-99) mg/dL Calcium (8.4-10.2) mg/dL AST (14-36) U/L ALT (9-52) U/L Total Protein (6.3-8.2) g/dL Albumin (3.5-5.0) g/dL 09/18/16 09/18/16 09/18/16 Range/Units 06:30 07:38 11:37 WBC (3.8-10.6) k/uL Hgb (11.4-16.0) gm/dL Neutrophils # (1.3-7.7) k/uL Glucose 147 H (74-99) mg/dL POC Glucose (mg/dL) 160 H 161 H (75-99) mg/dL Calcium 8.0 L (8.4-10.2) mg/dL AST 62 H (14-36) U/L ALT 75 H (9-52) U/L Total Protein 6.0 L (6.3-8.2) g/dL Albumin 2.7 L (3.5-5.0) g/dL Assessment and Plan (1) Morbid obesity Status: Acute (2) Gastroparesis Status: Acute (3) Morbid obesity with BMI of 50.0-59.9, adult Status: Acute (4) Type 2 diabetes mellitus Status: Acute Plan: Blood usgar control has been ok Her oral intake is maarginal She is onyl just starting to use her incentive spirometer She is ambulating Since the patients oral intake was marginal after removal of the IV , I have recommended increase oral intake, ambulation. If her oral intake is not enough will need to restart IV and keep at least KVO I have explained in detail to the patient the need for using the incentive spirmeter and the oral intake. She has had only 4-5 oz since this morning She expressed understanding and is willing to work with it for a possible am discharge.
[2016-09-18] MEDS: HYDROcodone/APAP 5-325MG 1 EACH TAB PO PRN ×2 (14:14→19:27)
[2016-09-18] MEDS ORDERED: RX INFO: IV CONTRAST WAS GIVEN 1 EACH MISC MISCELLANE PRN (16:47)
[2016-09-18 17:00] LABS: Glucose,Whole Blood 145 mg/dL (75-99)
--- NOTE | 2016-09-18 18:49 | CT ---
CT CHEST FOR PULMONARY EMBOLISM. EXAMINATION TYPE: CT angio chest DATE OF EXAM: 09/18/2016 6:32 PM INDICATION: Shortness of breath post op gastric surgery CT DLP: 910.5 mGycm, Automated exposure control for dose reduction was used. CONTRAST: Patient injected with 100 mL of Omnipaque 350. COMPARISON: NONE TECHNIQUE: CT of the chest is performed on a spiral scan at 2 mm thick sections. Study is performed with intravenous contrast timed for evaluation for pulmonary embolism. This will limit additional po rtions of the evaluation. 3-D MIP images reconstructed by the technologist are reviewed on the compu ter in the coronal and sagittal planes. FINDINGS: No persistent filling defects are evident to suggest an acute pulmonary embolism. Contrast opacificat ion is suboptimal which may limit evaluation of segmental and subsegmental branches. No large central pulmonary emboli are identified. No mediastinal or hilar adenopathy enlarged by CT criteria is evident. The ascending aorta diameter at the level of the main pulmonary artery is 3.3 cm. The main pulmonary artery diameter at the bifur cation is 3.0 cm. Some patchy infiltrate is in the left lower lobe. Correlate for atelectasis or early pneumonia. Some subsegmental atelectasis is likely present at the right base. Small left pleural effusion may be pres ent. Limited CT section through the upper abdomen are unremarkable. IMPRESSIONS: 1. No acute pulmonary embolism. There is limitation due to contrast timing and perfusion 2. Left lower lobe infiltrate. Correlate for atelectasis and pneumonia.
--- NOTE | 2016-09-18 18:55 | US ---
EXAMINATION TYPE: US venous doppler duplex LE DATE OF EXAM: 09/18/2016 6:37 PM COMPARISON: NONE CLINICAL HISTORY: low PO on RA/ r/o PE. Pt had abd surgery 2 days ago, when walking her O2 sats drop, being assess for dvt, no prev dvt, currently on thinners as preventative SIDE PERFORMED: bilateral TECHNIQUE: The lower extremity deep venous system is examined utilizing real time linear array sonog rox with graded compression, doppler sonography and color-flow sonography. VESSELS IMAGED: External Iliac Vein (EIV) Common Femoral Vein Deep Femoral Vein Greater Saphenous Vein * Femoral Vein Popliteal Vein Small Saphenous Vein * Proximal Calf Veins (* superficial vessels) Some exam limitations due to larger habitus. Right Leg: neg for RLE dvt Left Leg: neg for LLE dvt IMPRESSION: 1. Bilateral lower extremities negative for deep venous thrombosis
[2016-09-18 20:24] LABS: Glucose,Whole Blood 131 mg/dL (75-99)
[2016-09-18] MEDS: INSULIN GLARGINE 100 UNIT/ML 10 ML VIAL SQ SCH (21:31)
[2016-09-18] MEDS: ESCITALOPRAM 10 MG TAB PO SCH (21:32)
[2016-09-19] MEDS: HYDROcodone/APAP 5-325MG 1 EACH TAB PO PRN ×6 (02:38→23:36)
[2016-09-19 07:30] LABS: Glucose,Whole Blood 132 mg/dL (75-99)
[2016-09-19] MEDS: NYSTATIN 100,000 UNIT/GM POWD 15 GM TOPICAL SCH ×3 (07:58→21:07)
[2016-09-19] MEDS: INSULIN LISPRO (humaLOG) 300 UNIT/3 ML VIAL SQ SCH ×4 (07:58→19:41)
[2016-09-19] MEDS: MULTIVITAMINS, THERA 1 EACH TAB PO SCH (07:59)
[2016-09-19] MEDS: ENOXAPARIN 60 MG/0.6 ML SYRINGE SQ SCH ×2 (08:02→20:00)
[2016-09-19] MEDS: CHOLECALCIFEROL 1,000 UNIT TAB PO SCH (08:02)
--- NOTE | 2016-09-19 08:16 | P.PN ---
Subjective This is a pleasant 40-year-old lady patient of Dr. Alvarez. She has underlying history off diabetes mellitus type 2, and morbid obesity fall and depression for which she underwent a Donald-en-Y surgery performed by Dr. archibald today via laparoscopic procedure, he follows with Dr. Nieves Madden for her insulin pump, she does not have any new problems today including shortness of breath or chest pain, no difficulty of breathing, blood sugars are around 166-197 with the lowest of 83 prior to surgery month to her pump she requires about 1 vial every 9 days, patient does not know her actual amount of insulin per day, her A1c is between 6-6.7, Dr. Ivy Madden has been managing her insulin pump prior to admission 09/18: Patient is hoping for discharge home today. Gibran blood glucose has been running 160s to 190s on Humalog scale only. Recommended the patient return onto her insulin pump with a decrease basal rate of 0.1 unit. Patient agrees she understands how to do this on her own pump. Patient is cleared for discharge home today if cleared by surgery. Objective - Vital Signs Vital signs: Vital Signs Temp 98.7 F 09/19/16 07:33 Pulse 87 09/19/16 07:33 Resp 17 09/19/16 02:09 BP 137/78 09/19/16 07:33 Pulse Ox 93 L 09/19/16 07:33 Intake & Output 09/18/16 09/19/16 09/19/16 18:59 06:59 18:59 Intake Total 150 Balance 150 Intake: Oral 150 Other: Voiding Method Toilet Toilet # Voids 1 1 - Exam General appearance: cooperative, no acute distress, obese - EENT Eyes: anicteric sclerae, EOMI, PERRLA, dentition normal ENT: NA/AT, normal oropharynx - Neck Neck: no lymphadenopathy, normal ROM, no other, no rigidity, no stridor, no thyromegaly Thyroid: bilateral: normal size - Respiratory Respiratory: bilateral: CTA, negative: diminished, dullness, rales, rhonchi - Cardiovascular Rhythm: regular Heart sounds: normal: S1, S2 Abnormal Heart Sounds: no systolic murmur, no diastolic murmur, no rub, no S3 Gallop, no S4 Gallop, no click, no other - Gastrointestinal General gastrointestinal: normal bowel sounds, soft - Integumentary Integumentary: normal, normal turgor - Neurologic Neurologic: CNII-XII intact - Musculoskeletal Musculoskeletal: gait normal, strength equal bilaterally - Psychiatric Psychiatric: A&O x's 3, intact judgment & insight - Labs CBC & Chem 7: 09/18/16 06:30 09/18/16 06:30 Labs: Abnormal Lab Results - Last 24 Hours (Table) 09/18/16 09/18/16 09/18/16 Range/Units 11:37 16:40 20:17 POC Glucose (mg/dL) 161 H 145 H 131 H (75-99) mg/dL 09/19/16 Range/Units 07:29 POC Glucose (mg/dL) 132 H (75-99) mg/dL Assessment and Plan Plan: 1. Laparoscopic Donald-en-Y surgery for bariatric weight loss program BMI of 59, patient currently is doing well, please will be initiated today, upper GI series was performed that failed to reveal any obstruction or extravasation of contrast, patient would continue on incentive spirometry program, pain is under control. 2. Diabetes mellitus type 2 on insulin pump, insulin pump was discontinued, and will be resumed today with a decrease of 0.1 unit per hour. 3. Depression on citalopram and Wellbutrin 4. ALLERGIC rhinitis currently asymptomatic VTEprophylaxis on Lovenox GI prophylaxis Discharge plan: Return home Impression and plan of care have been directed as dictated by the signing physician. Shawna Alexis nurse practitioner acting as scribe for signing physician. Time with Patient: Greater than 30
[2016-09-19] MEDS: ALBUTEROL NEBULIZED 2.5 MG/3 ML INHALATION SCH ×4 (08:20→20:07)
[2016-09-19] MEDS: PANTOPRAZOLE 40 MG TABLET PO SCH (08:44)
[2016-09-19 11:38] LABS: Glucose,Whole Blood 119 mg/dL (75-99)
[2016-09-19] MEDS ORDERED: SODIUM CHLORIDE 0.65% NASAL SPRAY 44 ML BTL NASAL PRN (14:40)
[2016-09-19] MEDS: LACTATED RINGERS 1,000 ML IV SCH ×2 (15:08→21:07)
[2016-09-19 16:35] LABS: Glucose,Whole Blood 100 mg/dL (75-99)
--- NOTE | 2016-09-19 17:49 | P.PN ---
Subjective Principal diagnosis: s/p Gastric bypass Patient is doing ok . Pain is well controlled. She is still short of breath and is only doing to 700 cc on her IS. Post ambulation o2 satas are barely 90% and her oral intake is low. She has had a bowel movements. Pain is well controlled. Objective - Vital Signs Vital signs: Vital Signs Temp 97.6 F 09/19/16 14:44 Pulse 92 09/19/16 15:18 Resp 17 09/19/16 15:17 BP 129/87 09/19/16 14:44 Pulse Ox 98 09/19/16 14:44 Intake & Output 09/18/16 09/19/16 09/19/16 18:59 06:59 18:59 Intake Total 150 Output Total 500 Balance 150 -500 Intake: Oral 150 Output: Urine 500 Other: Voiding Method Toilet Toilet Toilet # Voids 1 1 3 - Constitutional General appearance: Present: morbidly obese - EENT Eyes: Present: EOMI, PERRLA ENT: Absent: hard of hearing - Cardiovascular Rhythm: regular - Gastrointestinal Gastrointestinal Comment(s): incisions are healing well. appropriately tender. General gastrointestinal: Present: soft - Labs CBC & Chem 7: 09/18/16 06:30 09/18/16 06:30 Labs: Abnormal Lab Results - Last 24 Hours (Table) 09/18/16 09/19/16 09/19/16 Range/Units 20:17 07:29 11:37 POC Glucose (mg/dL) 131 H 132 H 119 H (75-99) mg/dL 09/19/16 Range/Units 16:34 POC Glucose (mg/dL) 100 H (75-99) mg/dL Assessment and Plan (1) Morbid obesity Status: Acute (2) Gastroparesis Status: Acute (3) Morbid obesity with BMI of 50.0-59.9, adult Status: Acute (4) Type 2 diabetes mellitus Status: Acute Plan: Her oral intake is maarginal She is using the spirometer sparingly. She reaches barely 700 cc She is ambulating but o2 sats remain low I have talked to respiratory therapy to use flutter valve and respiratory toilette Pulmonology was consulted as well INcrease use of incentive spirmeter was recommended as well as oral fluid intake. It was explained to her that if she did not reach aboe 1500 she may not be discahrged home and runs the risk of pneumonia. CT chest and Duplex is negative for PE>
[2016-09-19] MEDS: INSULIN GLARGINE 100 UNIT/ML 10 ML VIAL SQ SCH (19:41)
[2016-09-19] MEDS: buPROPion 100 MG TAB PO SCH (19:41)
[2016-09-19] MEDS: ESCITALOPRAM 10 MG TAB PO SCH (20:00)
[2016-09-19 20:53] LABS: Glucose,Whole Blood 134 mg/dL (75-99)
[2016-09-20] MEDS: HYDROcodone/APAP 5-325MG 1 EACH TAB PO PRN (05:49)
[2016-09-20 06:57] LABS: Glucose,Whole Blood 99 mg/dL (75-99)
[2016-09-20 07:37] VITALS: BP 161/73; RESP 16; TEMP 98.6
[2016-09-20] MEDS: INSULIN LISPRO (humaLOG) 300 UNIT/3 ML VIAL SQ SCH (07:38)
[2016-09-20] MEDS: ENOXAPARIN 60 MG/0.6 ML SYRINGE SQ SCH (07:39)
[2016-09-20] MEDS: CHOLECALCIFEROL 1,000 UNIT TAB PO SCH (07:39)
[2016-09-20] MEDS: MULTIVITAMINS, THERA 1 EACH TAB PO SCH (07:40)
[2016-09-20] MEDS: NYSTATIN 100,000 UNIT/GM POWD 15 GM TOPICAL SCH (07:40)
[2016-09-20] MEDS: PANTOPRAZOLE 40 MG TABLET PO SCH (07:41)
[2016-09-20] MEDS: ALBUTEROL NEBULIZED 2.5 MG/3 ML INHALATION SCH (09:17)
[2016-09-20 09:32] VITALS: PULSE 88
--- NOTE | 2016-09-20 12:47 | P.DS ---
Providers Date of admission: 09/16/16 10:23 Expected date of discharge: 09/20/16 Attending physician: Astrid Mane Consults: 09/16/16 16:34 Consult Physician Routine Consulting Provider: Deandre Reyes Consult Reason/Comments: Medical management Do you want consulting provider notified?: Yes 09/19/16 17:06 Consult Physician Routine Consulting Provider: Yemi Langford Reason/Comments: post op atelectasis Do you want consulting provider notified?: Yes Primary care physician: Brenden Chicas [facility] Course: A 40-year-old female who presented on elective basis to undergo revision of the bariatric surgery prior history of lap band placement and removal underwent on September 16 kylee en y surgery for bariatric weight loss patient was followed throughout the hospitalization by medicine service. Patient does see an studio artist who manages her insulin pump for her diabetes. Postop there were no new events. And on the day of discharge was felt to be hemodynamically stable and appropriate to proceed on September 16 postop Laparoscopic Donald-en-Y gastric bypass( revisional bariatric surgery prior history of lap band placement and removal) Intraoperative EGJ - Impression discharge diagnosis 1. Laparoscopic Donald-en-Y surgery for bariatric weight loss program BMI of 59, 2. Diabetes mellitus type 2 on insulin pump, insulin pump was discontinued, and would start on basal bolus regimen, Lantus at 25 units started tonight, and a sliding scale coverage. This would need to be recalculated once more diet will be reintroduced 3. Depression on citalopram and Wellbutrin 4. ALLERGIC rhinitis currently asymptomatic Laparoscopic Donald-en-Y gastric bypass( revisional bariatric surgery prior history of lap band placement and removal) Intraoperative EGJ done on September 16 Morbid obesity BMI 59 Obstructive sleep apnea Type 2 diabetes requiring insulin pump hemoglobin A1c 6.7 Hypertension Electrolyte abnormality abnormal lab values hypo- magnesium 1.5 corrected and resolved Leukocytosis likely reactive resolved Anxiety mood disorder The above dictated assessment and findings were discussed with dr antonietta Orr and the plan of care have been dictated as directed. Crys Macdonald nurse practitioner acting as a scribe for dr mane Plan - Discharge Summary New Discharge Prescriptions: Docusate [Colace] 100 mg PO BID #30 capsule Hydrocodone/Acetaminophen [Effie 5-325] 1 each PO Q6HR PRN #30 tab PRN Reason: Pain Hydrocodone/Acetaminophen [Hycet 7.5 mg-325 mg/15 ml Soln] 15 ml PO Q6HR PRN # 500 ml PRN Reason: Pain Discharge Medication List Biotin 5 mg PO HS 01/06/16 [History] Cetirizine HCl [Zyrtec] 10 mg PO DAILY 01/06/16 [History] Escitalopram [Lexapro] 10 mg PO HS 01/06/16 [History] INSULIN LISPRO (HumaLOG) [humaLOG] See Protocol SQ CONTINUOUS 01/29/16 [History] Multivitamins, Thera [Multivitamin (formulary)] 1 tab PO DAILY 06/23/16 [History ] buPROPion [Wellbutrin] 100 mg PO HS 06/23/16 [History] Cholecalciferol [Vitamin D3] 1,000 unit PO DAILY 09/16/16 [History] Docusate [Colace] 100 mg PO BID #30 capsule 09/17/16 [Rx] Hydrocodone/Acetaminophen [Hycet 7.5 mg-325 mg/15 ml Soln] 15 ml PO Q6HR PRN # 500 ml 09/17/16 [Rx] Hydrocodone/Acetaminophen [Effie 5-325] 1 each PO Q6HR PRN #30 tab 09/17/16 [Rx] Follow up Appointment(s)/Referral(s): Astrid Mane MD [STAFF PHYSICIAN] - 09/22/16 9:00 am (Follow up at bariatric center [phone]) Patient Instructions/Handouts: Nutrition after Bariatric Surgery (DC), Donald-en -Y Gastric Bypass (DC) Activity/Diet/Wound Care/Special Instructions: Ok to shower. No soaking bath. No heavy lifting>10lbs for 6 weeks post surgery. No driving while taking pain meds. PLEASE CALL DR MANE @[phone] in case of questions/concerns Discharge Disposition: HOME SELF-CARE
--- NOTE | 2016-09-21 14:53 | P.PN ---
Subjective This is a pleasant 40-year-old lady patient of Dr. Alvarez. She has underlying history off diabetes mellitus type 2, and morbid obesity fall and depression for which she underwent a Donald-en-Y surgery performed by Dr. archibald today via laparoscopic procedure, he follows with Dr. Nieves Madden for her insulin pump, she does not have any new problems today including shortness of breath or chest pain, no difficulty of breathing, blood sugars are around 166-197 with the lowest of 83 prior to surgery month to her pump she requires about 1 vial every 9 days, patient does not know her actual amount of insulin per day, her A1c is between 6-6.7, Dr. Ivy Madden has been managing her insulin pump prior to admission 09/18: Patient is hoping for discharge home today. Capillary blood glucose has been running 160s to 190s on Humalog scale only. Recommended the patient return onto her insulin pump with a decrease basal rate of 0.1 unit. Patient agrees she understands how to do this on her own pump. Patient is cleared for discharge home today if cleared by surgery. 09/19: Blood sugars are much improved on her insulin pump. Patient is tolerating her diet and anticipates discharge home today. Objective - Vital Signs Vital signs: Vital Signs Temp 98.6 F 09/20/16 07:00 Pulse 88 09/20/16 09:30 Resp 16 09/20/16 09:18 BP 161/73 09/20/16 07:00 Pulse Ox 94 L 09/20/16 07:00 Intake & Output 09/20/16 09/21/16 09/21/16 18:59 06:59 18:59 Intake Total 650 Balance 650 Intake: Oral 650 - Exam General appearance: cooperative, no acute distress, obese - EENT Eyes: anicteric sclerae, EOMI, PERRLA, dentition normal ENT: NA/AT, normal oropharynx - Neck Neck: no lymphadenopathy, normal ROM, no other, no rigidity, no stridor, no thyromegaly Thyroid: bilateral: normal size - Respiratory Respiratory: bilateral: CTA, negative: diminished, dullness, rales, rhonchi - Cardiovascular Rhythm: regular Heart sounds: normal: S1, S2 Abnormal Heart Sounds: no systolic murmur, no diastolic murmur, no rub, no S3 Gallop, no S4 Gallop, no click, no other - Gastrointestinal General gastrointestinal: normal bowel sounds, soft - Integumentary Integumentary: normal, normal turgor - Neurologic Neurologic: CNII-XII intact - Musculoskeletal Musculoskeletal: gait normal, strength equal bilaterally - Psychiatric Psychiatric: A&O x's 3, intact judgment & insight - Labs CBC & Chem 7: 09/18/16 06:30 09/18/16 06:30 Assessment and Plan Plan: 1. Laparoscopic Donald-en-Y surgery for bariatric weight loss program BMI of 59, patient currently is doing well, please will be initiated today, upper GI series was performed that failed to reveal any obstruction or extravasation of contrast, patient would continue on incentive spirometry program, pain is under control. 2. Diabetes mellitus type 2 on insulin pump, insulin pump resumed with a decrease of 0.1 unit per hour. 3. Depression on citalopram and Wellbutrin 4. ALLERGIC rhinitis currently asymptomatic VTEprophylaxis on Lovenox GI prophylaxis Discharge plan: Return home Impression and plan of care have been directed as dictated by the signing physician. Shawna Alexis nurse practitioner acting as scribe for signing physician.
== END 2016-09-20 09:50 | disposition home or self-care (01) | DRG 620 ==
LOC: 2ORWHC 10:23 → 3SUR 16:21
PROVIDERS: ADMIT Surgery; ATTEND Surgery
PROC: 0D164ZA Bypass Stomach to Jejunum, Percutaneous Endoscopic Approach (ICD-10-PCS; principal; 2016-09-16 12:00)
PROC: 0DJ08ZZ Inspection of Upper Intestinal Tract, Via Natural or Artificial Opening Endoscopic (ICD-10-PCS; principal; 2016-09-16 12:00)
DX: E66.01 Morbid (severe) obesity due to excess calories (principal); J98.11 Atelectasis; K31.84 Gastroparesis; E11.43 Type 2 diabetes mellitus with diabetic autonomic (poly)neuropathy; E83.42 Hypomagnesemia; D72.829 Elevated white blood cell count, unspecified; E78.00 Pure hypercholesterolemia, unspecified; F32.9 Major depressive disorder, single episode, unspecified; F41.9 Anxiety disorder, unspecified; G47.33 Obstructive sleep apnea (adult) (pediatric); I10 Essential (primary) hypertension; J30.9 Allergic rhinitis, unspecified; K21.9 Gastro-esophageal reflux disease without esophagitis; Z79.4 Long term (current) use of insulin; Z79.899 Other long term (current) drug therapy; Z87.11 Personal history of peptic ulcer disease; Z96.41 Presence of insulin pump (external) (internal); Z68.43 Body mass index [BMI] 50.0-59.9, adult
CPT/HCPCS: 71275; 74240; 80051; 80053; 82310; 82565; 83036; 83735; 84100; 84520; 85025; 93970; 94640; 94667; 94668; 94760; 94762

== ENCOUNTER → 2016-09-22 | Outpatient (CLI) | payer BC ==
[2016-09-22 09:25] VITALS: BP 144/75; PULSE 93; RESP 16; TEMP 98.3; BMI 61.0
[2016-09-22 11:20] LABS: CH 25.8; CHCM 30.9; HCT 36.8 % (34.0-46.0); HDW 2.68; HGB 11.3 gm/dL (11.4-16.0); Hypochromasia Slight; MCH 25.7 pg (25.0-35.0); MCHC 30.7 g/dL (31.0-37.0); MCV 83.7 fL (80.0-100.0); Mean Platelet Volume 7.2; RDW 15.6 % (11.5-15.5); WBC 13.4 k/uL (3.8-10.6)
--- NOTE | 2016-09-22 11:40 | P.PN ---
Subjective Principal diagnosis: S/P lap RYGB 09/15/16 The patient is a 40 year-old F S/P lap revisional YURY -en - Y gastric bypass . Tolerating liquids. Pain well controlled. C/O redness and pain in left incision. No fever, no drainage. She c/o ankle edema. Has not resumed Diazide. On insulin pump. Work up included: Gastric emptying study showing gastroparesis 24 hr Ph -normal Manometry- mild dysfunction Mammogram- Benign Height 5 feet 1 and half inch, Preop visit #1 weight 302.2 pounds, 140.25 KG, BMI 58.4 Preop visit #2 weight 136.07KG, BMI 55.8 Preop visit #3 weight 151.04KG, BMI 61.9 Preop visit #4 weight 149.4KG BMI 61.2 Lap RYGB 09/15/2016 Post op visit #1 148.96 KG weight BMI 61 Review of Systems Constitutional: Denies fever, weight loss or loss of appetite HEENT: No difficulty in vision or hearing. Denies dysphagia. Cardiovascular: Denies chest pain, palpitations, dizziness, shortness of breath. Respiratory: No cough or shortness of breath Gastrointestinal: No change in bowel habits Genitourinary: No urinary incontinence, hematuria or dysuria Neurologic: No seizures, denies weakness in upper or lower extremities Musculoskeletal: Occasional left knee pain. Psychiatry: Known history of depression, no suicidal ideation, no anxiety or psychosis Past Medical History Past Medical History: Diabetes Mellitus Additional Past Medical History / Comment(s): Type 2(USES INSULIN PUMP) History of Any Multi-Drug Resistant Organisms: None Reported Past Surgical History: Bariatric Surgery, Section Additional Past Surgical History / Comment(s): LAP BAND 2003, , LAP BAND REMOVED Past Anesthesia/Blood Transfusion Reactions: No Reported Reaction Past Psychological History: Depression Smoking Status: Never smoker Past Alcohol Use History: Rare Past Drug Use History: None Reported - Past Family History Father Family Medical History: No Reported History Mother Family Medical History: No Reported History Medications and Allergies Home Medications Medication Instructions Recorded Confirmed Type Biotin 5 mg PO HS 01/06/16 09/14/16 History Cetirizine HCl [Zyrtec] 10 mg PO DAILY 01/06/16 09/14/16 History Cholecalciferol (Vitamin D3) 1,000 unit PO DAILY 01/06/16 09/14/16 History [Vitamin D3] Escitalopram [Lexapro] 10 mg PO HS 01/06/16 09/14/16 History INSULIN LISPRO (HumaLOG) [HumaLOG] See Protocol SQ CONTINUOUS 01/29/16 09/14/16 History Multivitamins, Thera [Multivitamin] 1 tab PO DAILY 06/23/16 09/14/16 History buPROPion [Wellbutrin] 100 mg PO HS 06/23/16 09/14/16 History Allergies Allergy/AdvReac Type Severity Reaction Status Date / Time No Known Allergies Allergy Verified 09/14/16 14:43 Objective - Vital Signs Vital signs: Vital Signs Temp 98.3 F 09/22/16 09:09 Pulse 93 09/22/16 09:09 Resp 16 09/22/16 09:09 BP 144/75 09/22/16 09:09 Pulse Ox 94 L 09/22/16 09:09 Intake & Output 09/21/16 09/22/16 09/22/16 18:59 06:59 18:59 Weight 148.96 kg - Exam General: Patient is alert and oriented to time, place and person and cooperative with exam. She is not in acute distress. HEENT: No pallor, no icterus, no thyroid enlargement, no cervical lymphadenopathy. Chest: Bilateral equal breath sounds present. No wheezes, no crackles. Cardiovascular: Regular rate and rhythm. Abdomen: Soft, nontender, nondistended. Port site cellulitis and incision was opened to evacuate hematoma Neurologic: Cranial nerves II-XII intact. Strength upper and lower extremities 5/5. No focal neurologic deficits. Gait is normal. Psychiatric: No anxiety or psychosis. No suicidal thoughts. - Labs CBC & Chem 7: 09/22/16 10:51 Labs: Abnormal Lab Results - Last 24 Hours (Table) 09/22/16 Range/Units 10:51 WBC 13.4 H (3.8-10.6) k/uL Hgb 11.3 L (11.4-16.0) gm/dL MCHC 30.7 L (31.0-37.0) g/dL RDW 15.6 H (11.5-15.5) % Assessment and Plan (1) Depression Status: Acute (2) Gastroparesis Status: Acute (3) Hypercholesteremia Status: Acute (4) Morbid obesity with BMI of 50.0-59.9, adult Status: Acute (5) Type 2 diabetes mellitus Status: Acute Plan: 1. Incision opened - hematoma drained 20 cc. Cultures taken 2. PAcking with iodoform. Change every 24 hrs 3. Keflex 500 mg po TIDx 10 days 4. Resume diuretics 5. Follow up in 1 week 6.Check CBC and CMP 7. Follow up with Dr. Madden in 2 weeks
[2016-09-22 11:44] LABS: ALT 41 U/L (9-52); AST 28 U/L (14-36); Alkaline Phosphatase 74 U/L (38-126); Anion Gap 8 mmol/L; Blood Urea Nitrogen 7 mg/dL (7-17); Calcium 8.4 mg/dL (8.4-10.2); Carbon Dioxide 26 mmol/L (22-30); Chloride 104 mmol/L (98-107); Glucose 141 mg/dL (74-99); Non-African American GFR(MDRD) >60 (>60 ml/min/1.73 sqM); Potassium 3.9 mmol/L (3.5-5.1); Sodium 138 mmol/L (137-145); Total Bilirubin 0.4 mg/dL (0.2-1.3); Total Protein 6.9 g/dL (6.3-8.2)
== END | disposition home or self-care (01) ==
LOC: BARWHC3 09:02
PROVIDERS: ATTEND Surgery
DX: Z48.815 Encounter for surgical aftercare following surgery on the digestive system (principal); F32.9 Major depressive disorder, single episode, unspecified; K31.84 Gastroparesis; E78.00 Pure hypercholesterolemia, unspecified; E66.01 Morbid (severe) obesity due to excess calories; Z68.43 Body mass index [BMI] 50.0-59.9, adult; E11.9 Type 2 diabetes mellitus without complications; Z79.899 Other long term (current) drug therapy; Z98.84 Bariatric surgery status
CPT/HCPCS: 36415; 80053; 85027; 87070; 87205; 97803; 99211

== ENCOUNTER → 2016-09-29 | Outpatient (CLI) | payer BC ==
--- NOTE | 2016-09-29 09:48 | P.PN ---
Subjective Principal diagnosis: S/P lap RYGB The patient is a 40 year-old F S/P lap revisional YURY -en - Y gastric bypass . Tolerating liquids. Pain well controlled. Redness and pain in left incision has resolved No fever, no drainage. Her ankle edema has resolved . Has resumed Diazide. On insulin pump. Height 5 feet 1 and half inch, Preop visit #1 weight 302.2 pounds, 140.25 KG, BMI 58.4 Preop visit #2 weight 136.07KG, BMI 55.8 Preop visit #3 weight 151.04KG, BMI 61.9 Preop visit #4 weight 149.4KG BMI 61.2 Lap RYGB 09/15/2016 Post op visit #1 148.96 KG weight BMI 61 Post op visit #2 138.75 KG weight BMI 56.9 Review of Systems Constitutional: Denies fever, weight loss or loss of appetite HEENT: No difficulty in vision or hearing. Denies dysphagia. Cardiovascular: Denies chest pain, palpitations, dizziness, shortness of breath. Respiratory: No cough or shortness of breath Gastrointestinal: No change in bowel habits Genitourinary: No urinary incontinence, hematuria or dysuria Neurologic: No seizures, denies weakness in upper or lower extremities Musculoskeletal: Occasional left knee pain. Psychiatry: Known history of depression, no suicidal ideation, no anxiety or psychosis Past Medical History Past Medical History: Diabetes Mellitus Additional Past Medical History / Comment(s): Type 2(USES INSULIN PUMP) History of Any Multi-Drug Resistant Organisms: None Reported Past Surgical History: Bariatric Surgery, Section Additional Past Surgical History / Comment(s): LAP BAND 2003, , LAP BAND REMOVED Past Anesthesia/Blood Transfusion Reactions: No Reported Reaction Past Psychological History: Depression Smoking Status: Never smoker Past Alcohol Use History: Rare Past Drug Use History: None Reported - Past Family History Father Family Medical History: No Reported History Mother Family Medical History: No Reported History Medications and Allergies Home Medications Medication Instructions Recorded Confirmed Type Biotin 5 mg PO HS 01/06/16 09/14/16 History Cetirizine HCl [Zyrtec] 10 mg PO DAILY 01/06/16 09/14/16 History Cholecalciferol (Vitamin D3) 1,000 unit PO DAILY 01/06/16 09/14/16 History [Vitamin D3] Escitalopram [Lexapro] 10 mg PO HS 01/06/16 09/14/16 History INSULIN LISPRO (HumaLOG) [HumaLOG] See Protocol SQ CONTINUOUS 01/29/16 09/14/16 History Multivitamins, Thera [Multivitamin] 1 tab PO DAILY 06/23/16 09/14/16 History buPROPion [Wellbutrin] 100 mg PO HS 06/23/16 09/14/16 History Allergies Allergy/AdvReac Type Severity Reaction Status Date / Time No Known Allergies Allergy Verified 09/14/16 14:43 Objective - Exam General: Patient is alert and oriented to time, place and person and cooperative with exam. She is not in acute distress. HEENT: No pallor, no icterus, no thyroid enlargement, no cervical lymphadenopathy. Chest: Bilateral equal breath sounds present. No wheezes, no crackles. Cardiovascular: Regular rate and rhythm. Abdomen: Soft, nontender, nondistended. Port site cellulitis has resolved. Iodoform pack present Neurologic: Cranial nerves II-XII intact. Strength upper and lower extremities 5/5. No focal neurologic deficits. Gait is normal. Psychiatric: No anxiety or psychosis. No suicidal thoughts. s Assessment and Plan (1) Depression Status: Acute (2) Gastroparesis Status: Acute (3) Hypercholesteremia Status: Acute (4) Morbid obesity Status: Acute (5) Morbid obesity with BMI of 50.0-59.9, adult Status: Acute (6) Type 2 diabetes mellitus Status: Acute Plan: 1. Incision opened - hematoma drained. No growth on culture- NO INFECTION 2. Packing with Aquacel silver rope. Change every 48 hrs 3. Keflex 500 mg po TID. Finish 10 days course 4. Resume diuretics 5. Follow up [facility] 2 weeks [facility] 6. Follow up with Dr. CRUZ next week 7. Follow up with Dr. Madden in 2 weeks to adjust insulin pump 8. Advance dioet as per protocol
[2016-09-29 09:57] VITALS: BMI 56.8
[2016-09-29 10:04] VITALS: BP 135/87; PULSE 86; TEMP 97.9
== END | disposition home or self-care (01) ==
LOC: BARWHC3 08:58
PROVIDERS: ATTEND Surgery
DX: E66.01 Morbid (severe) obesity due to excess calories (principal); E11.9 Type 2 diabetes mellitus without complications; F32.9 Major depressive disorder, single episode, unspecified; E11.43 Type 2 diabetes mellitus with diabetic autonomic (poly)neuropathy; K31.84 Gastroparesis; Z68.43 Body mass index [BMI] 50.0-59.9, adult; Z79.4 Long term (current) use of insulin; Z79.899 Other long term (current) drug therapy; Z98.84 Bariatric surgery status
CPT/HCPCS: 97803; 99211

== ENCOUNTER → 2016-10-13 | Outpatient (CLI) | payer BC ==
[2016-10-13 12:08] VITALS: BMI 55.1
[2016-10-13 13:01] VITALS: BP 121/77; PULSE 79; TEMP 98
--- NOTE | 2016-10-13 14:01 | P.PN ---
Subjective S/P lap RYGB The patient is a 40 year-old F S/P lap revisional YURY -en - Y gastric bypass . Tolerating soft diet. Pain well controlled. Redness and pain in left incision has resolved . Clear drainage .No fever. Her ankle edema has resolved . Has resumed Diazide. On insulin pump. Height 5 feet 1 and half inch, Preop visit #1 weight 302.2 pounds, 140.25 KG, BMI 58.4 Preop visit #2 weight 136.07KG, BMI 55.8 Preop visit #3 weight 151.04KG, BMI 61.9 Preop visit #4 weight 149.4KG BMI 61.2 Lap RYGB 09/15/2016 Post op visit #1 148.96 KG weight BMI 61 Post op visit #2 138.75 KG weight BMI 56.9 Post op visit #3 134.58KG weight 55.2 Review of Systems Constitutional: Denies fever, weight loss or loss of appetite HEENT: No difficulty in vision or hearing. Denies dysphagia. Cardiovascular: Denies chest pain, palpitations, dizziness, shortness of breath. Respiratory: No cough or shortness of breath Gastrointestinal: No change in bowel habits Genitourinary: No urinary incontinence, hematuria or dysuria Neurologic: No seizures, denies weakness in upper or lower extremities Musculoskeletal: Occasional left knee pain. Psychiatry: Known history of depression, no suicidal ideation, no anxiety or psychosis Past Medical History Past Medical History: Diabetes Mellitus Additional Past Medical History / Comment(s): Type 2(USES INSULIN PUMP) History of Any Multi-Drug Resistant Organisms: None Reported Past Surgical History: Bariatric Surgery, Section Additional Past Surgical History / Comment(s): LAP BAND 2002, , LAP BAND REMOVED Past Anesthesia/Blood Transfusion Reactions: No Reported Reaction Past Psychological History: Depression Smoking Status: Never smoker Past Alcohol Use History: Rare Past Drug Use History: None Reported - Past Family History Father Family Medical History: No Reported History Mother Family Medical History: No Reported History Medications and Allergies Home Medications Medication Instructions Recorded Confirmed Type Biotin 5 mg PO HS 01/06/16 09/14/16 History Cetirizine HCl [Zyrtec] 10 mg PO DAILY 01/06/16 09/14/16 History Cholecalciferol (Vitamin D3) 1,000 unit PO DAILY 01/06/16 09/14/16 History [Vitamin D3] Escitalopram [Lexapro] 10 mg PO HS 01/06/16 09/14/16 History INSULIN LISPRO (HumaLOG) [HumaLOG] See Protocol SQ CONTINUOUS 01/29/16 09/14/16 History Multivitamins, Thera [Multivitamin] 1 tab PO DAILY 06/23/16 09/14/16 History buPROPion [Wellbutrin] 100 mg PO HS 06/23/16 09/14/16 History Allergies Allergy/AdvReac Type Severity Reaction Status Date / Time No Known Allergies Allergy Verified 09/14/16 14:43 Objective - Exam General: Patient is alert and oriented to time, place and person and cooperative with exam. She is not in acute distress. HEENT: No pallor, no icterus, no thyroid enlargement, no cervical lymphadenopathy. Chest: Bilateral equal breath sounds present. No wheezes, no crackles. Cardiovascular: Regular rate and rhythm. Abdomen: Soft, nontender, nondistended. Port site cellulitis has resolved. Iodoform pack present Neurologic: Cranial nerves II-XII intact. Strength upper and lower extremities 5/5. No focal neurologic deficits. Gait is normal. Psychiatric: No anxiety or psychosis. No suicidal thoughts. Assessment and Plan (1) Depression Status: Acute (2) Gastroparesis Status: Acute (3) Hypercholesteremia Status: Acute (4) Morbid obesity Status: Acute (5) Morbid obesity with BMI of 50.0-59.9, adult Status: Acute (6) Type 2 diabetes mellitus Status: Acute Plan: 1. Free suture removed 2. Packing with Aquacel silver rope. Change every 48 hrs 3. Keflex 500 mg po TID. Finished 10 days course 4. Continue diuretics 5. Follow [facility] 6. Follow up with Dr. CRUZ as needed 7. Follow up with Dr. Madden in 2-4 weeks to adjust insulin pump 8. Advance diet as per protocol 9. Resume daily MVI 10. Increase physical activity as tolerated Objective - Vital Signs Vital signs: Vital Signs Temp 98.0 F 10/13/16 11:45 Pulse 79 10/13/16 11:45 Resp BP 121/77 10/13/16 11:45 Pulse Ox Intake & Output 10/12/16 10/13/16 10/13/16 18:59 06:59 18:59 Weight 134.581 kg
== END | disposition home or self-care (01) ==
LOC: BARWHC3 11:25
PROVIDERS: ATTEND Surgery
DX: E66.01 Morbid (severe) obesity due to excess calories (principal); F32.9 Major depressive disorder, single episode, unspecified; K31.84 Gastroparesis; E78.00 Pure hypercholesterolemia, unspecified; E11.9 Type 2 diabetes mellitus without complications; Z68.43 Body mass index [BMI] 50.0-59.9, adult
CPT/HCPCS: 97803; 99211

== ENCOUNTER → 2016-10-15 | Outpatient (CLI) | payer BC ==
[~2016-10-15] MED LIST changes: -DEXAMETHASONE SOD PHOSPHATE 10 MG/ML 1 ML VIAL IV ONE; -HYDROmorphone 1 MG/ML 1 ML SYRINGE IVP PRN; -LIDOCAINE 1% 20 ML VIAL (10MG/ML) FOR IV START INTRADERMA PRN; -MIDAZOLAM 2 MG/2 ML VIAL IV PRN; +ONDANSETRON 4 MG/2 ML VIAL IVP NR; -ONDANSETRON 4 MG/2 ML VIAL IVP ONE; +PANTOPRAZOLE 40 MG/10 ML VIAL IVP NR; +SCOPOLAMINE 1.5MG/72HR PATCH TRANSDERM NR; -SCOPOLAMINE 1.5MG/72HR PATCH TRANSDERM ONE; +SODIUM CHLORIDE 0.9% 2,000 ML IV SCH; +SODIUM CHLORIDE 0.9% 250 ML in EMPTY BAG 1 BAG IV PRN; +SODIUM CHLORIDE 0.9% 500 ML in EMPTY BAG 1 BAG IV PRN; -ceFAZolin 3 GM in SODIUM CHLORIDE 0.9% 100 ML IVPB ONE
[2016-10-15 09:58] LABS: Basophils # (A) 0.1 k/uL (0-0.2); Basophils % (A) 0 %; CH 25.4; CHCM 30.7; Eosinophils # (A) 0.5 k/uL (0-0.7); Eosinophils % (A) 3 %; HCT 43.7 % (34.0-46.0); HDW 2.76; HGB 13.6 gm/dL (11.4-16.0); Hypochromasia Moderate; Luc # (Auto) 0.08; Luc % (Auto) 1; Lymphocytes # (A) 1.5 k/uL (1.0-4.8); Lymphocytes % (A) 10 %; MCH 25.8 pg (25.0-35.0); MCHC 31.1 g/dL (31.0-37.0); MCV 82.9 fL (80.0-100.0); Mean Platelet Volume 8.6; Monocytes # (A) 0.4 k/uL (0-1.0); Monocytes % (A) 3 %; Neutrophils # (A) 12.6 k/uL (1.3-7.7); Neutrophils % (A) 83 %; RBC 5.26 m/uL (3.80-5.40); RDW 15.1 % (11.5-15.5); WBC 15.2 k/uL (3.8-10.6); WBC (Perox) 15.29
[2016-10-15 10:06] LABS: ALT 36 U/L (9-52); AST 49 U/L (14-36); Alkaline Phosphatase 78 U/L (38-126); Anion Gap 12 mmol/L; Blood Urea Nitrogen 15 mg/dL (7-17); Carbon Dioxide 28 mmol/L (22-30); Chloride 99 mmol/L (98-107); Glucose 158 mg/dL (74-99); Non-African American GFR(MDRD) >60 (>60 ml/min/1.73 sqM); Sodium 139 mmol/L (137-145); Total Bilirubin 0.8 mg/dL (0.2-1.3); Total Protein 8.2 g/dL (6.3-8.2)
[2016-10-15 10:09] LABS: Potassium 3.6 mmol/L (3.5-5.1)
[2016-10-15 10:19] VITALS: RESP 16
--- NOTE | 2016-10-15 11:13 | CT ---
EXAMINATION TYPE: CT abdomen pelvis w con DATE OF EXAM: 10/15/2016 COMPARISON: NONE HISTORY: Abdominal pain, Diverticulitis of large intestine CT DLP: 4012.20 mGycm CONTRAST: CT scan of the abdomen and pelvis is performed with Oral Contrast and with IV Contrast, patient injec ney with 100 ml mL of Omnipaque 300. FINDINGS: LUNG BASES-: No visible nodule. No infiltrate. LIVER/GB: No calcified gallstones. No space occupying hepatic lesion. Biliary tree is of normal ca liber. PANCREAS: No inflammation. No distinct mass. SPLEEN: No splenic enlargement. No lesion seen. ADRENALS: No nodule. No thickening. KIDNEYS/BLADDER: No hydronephrosis. No nephrolithiasis. No disctinct renal mass. Urinary bladder g rossly unremarkable. BOWEL: Postsurgical changes of gastric bypass procedure. Normal appendix. Normal bowel caliber. No inflammation. Sigmoid diverticulosis without diverticulitis. GENITAL ORGANS: 4.8 cm lesion in the left ovary is of intermediate attenuation. Consider ultrasound correlation. The right ovary is unremarkable as well as the uterus. LYMPH NODES: No greater than 1cm abdominal or pelvic lymph nodes are appreciated. AORTA: No significant abnormality. OSSEOUS STRUCTURES: No significant abnormality is seen. OTHER: Postsurgical changes of the anterior abdominal wall. IMPRESSION: 1. No acute inflammatory process identified. 2. Nonspecific left ovarian lesion. Consider ultrasound correlation.
[2016-10-15 11:37] VITALS: TEMP 98.3
[2016-10-15 13:19] VITALS: BP 109/74; PULSE 87
== END | disposition home or self-care (01) ==
LOC: PROCWHC3 09:15
PROVIDERS: ATTEND Surgery
DX: N83.9 Noninflammatory disorder of ovary, fallopian tube and broad ligament, unspecified (principal); R10.9 Unspecified abdominal pain; K57.32 Diverticulitis of large intestine without perforation or abscess without bleeding; Z98.890 Other specified postprocedural states
CPT/HCPCS: 80053; 85025; 74177; 96361; 96374; 96375; 36415; J2405; Q9967; C9113

== ENCOUNTER → 2016-10-18 | Outpatient (CLI) | payer BC ==
[2016-10-18 09:23] VITALS: BP 129/81; PULSE 76; RESP 14; TEMP 98.5; BMI 55.6
[2016-10-18 10:24] LABS: CH 25.5; CHCM 31.7; HCT 39.2 % (34.0-46.0); HDW 2.85; HGB 12.9 gm/dL (11.4-16.0); Hypochromasia Slight; MCH 26.6 pg (25.0-35.0); MCHC 32.9 g/dL (31.0-37.0); MCV 80.9 fL (80.0-100.0); RBC 4.85 m/uL (3.80-5.40); RDW 14.8 % (11.5-15.5); WBC 10.7 k/uL (3.8-10.6)
[2016-10-18 10:32] LABS: INR 1.1 (<1.1); Partial Thromboplastin Time 23.8 sec (22.0-30.0); Prothrombin Time 11.2 sec (9.0-12.0)
[2016-10-18 12:07] LABS: ALT 47 U/L (9-52); AST 30 U/L (14-36); Alkaline Phosphatase 82 U/L (38-126); Anion Gap 9 mmol/L; Blood Urea Nitrogen 11 mg/dL (7-17); Calcium 9.2 mg/dL (8.4-10.2); Carbon Dioxide 29 mmol/L (22-30); Chloride 103 mmol/L (98-107); Cholesterol 167 mg/dL (<200); Glucose 153 mg/dL (74-99); HDL Cholesterol 49 mg/dL (40-60); Iron 53 ug/dL (37-170); Magnesium 1.7 mg/dL (1.6-2.3); Non-African American GFR(MDRD) >60 (>60 ml/min/1.73 sqM); Phosphorous 2.9 mg/dL (2.5-4.5); Potassium 3.8 mmol/L (3.5-5.1); Sodium 141 mmol/L (137-145); Total Bilirubin 0.4 mg/dL (0.2-1.3); Total Protein 7.3 g/dL (6.3-8.2); Triglycerides 107 mg/dL (<150)
[2016-10-18 12:10] LABS: Hemoglobin A1C 6.7 % (4.2-6.1)
[2016-10-18 12:19] LABS: % Iron Saturation 18.3 % (20-50); Prealbumin 15 mg/dL (18-36); Total Iron Binding Capacity 290 ug/dL (265-497)
[2016-10-18 13:08] LABS: Vitamin B12 903 pg/mL (239-931)
[2016-10-21 18:51] LABS: Selenium 159 mcg/L (63-160)
== END | disposition home or self-care (01) ==
LOC: BARWHC3 08:58
PROVIDERS: ATTEND Surgery Plastic and Reconstructive Surgery
DX: Z48.815 Encounter for surgical aftercare following surgery on the digestive system (principal); E66.01 Morbid (severe) obesity due to excess calories; Z98.84 Bariatric surgery status; E21.1 Secondary hyperparathyroidism, not elsewhere classified; E89.1 Postprocedural hypoinsulinemia; D50.8 Other iron deficiency anemias; E44.0 Moderate protein-calorie malnutrition; E55.9 Vitamin D deficiency, unspecified; K74.1 Hepatic sclerosis; N19 Unspecified kidney failure; K50.90 Crohn's disease, unspecified, without complications; Z68.43 Body mass index [BMI] 50.0-59.9, adult
CPT/HCPCS: 80053; 80061; 82306; 82525; 82607; 82728; 82746; 83036; 83540; 83550; 83735; 83970; 84100; 84134; 84255; 84425; 84443; 84590; 84630; 85027; 85610; 85730; 99211

== ENCOUNTER → 2016-11-03 | Outpatient (CLI) | payer BC ==
[2016-11-03 08:36] VITALS: BP 171/82; PULSE 76; RESP 16; TEMP 98.3; BMI 55.2
--- NOTE | 2016-11-03 10:39 | P.PN ---
Subjective S/P lap RYGB The patient is a 40 year-old F S/P lap revisional YURY -en - Y gastric bypass . Tolerating soft diet. Pain well controlled. Redness and pain in left incision has resolved .No fever. Her ankle edema has resolved . Has resumed Diazide. On insulin pump. She reports one episode of vomiting after eating a large piece of chicken. Came to [facility]ariatric center on 10/[address] - postop changes . She is emotional and unhappy about inadequate weight loss. Recent accidental fall with brusing of left side of face . No episodes of hyopglycemia Height 5 feet 1 and half inch, Preop visit #1 weight 302.2 pounds, 140.25 KG, BMI 58.4 Preop visit #2 weight 136.07KG, BMI 55.8 Preop visit #3 weight 151.04KG, BMI 61.9 Preop visit #4 weight 149.4KG BMI 61.2 Lap RYGB 09/15/2016 Post op visit #1 148.96 KG weight BMI 61 Post op visit #2 138.75 KG weight BMI 56.9 Post op visit #3 134.58KG weight 55.2 Post op visit #4 134.7 KG weight 55.2 Review of Systems Constitutional: Denies fever, weight loss or loss of appetite HEENT: No difficulty in vision or hearing. Denies dysphagia. Cardiovascular: Denies chest pain, palpitations, dizziness, shortness of breath. Respiratory: No cough or shortness of breath Gastrointestinal: No change in bowel habits Genitourinary: No urinary incontinence, hematuria or dysuria Neurologic: No seizures, denies weakness in upper or lower extremities Musculoskeletal: Occasional left knee pain. Psychiatry: Known history of depression, no suicidal ideation, no anxiety or psychosis Past Medical History Past Medical History: Diabetes Mellitus Additional Past Medical History / Comment(s): Type 2(USES INSULIN PUMP) History of Any Multi-Drug Resistant Organisms: None Reported Past Surgical History: Bariatric Surgery, Section Additional Past Surgical History / Comment(s): LAP BAND 2002, , LAP BAND REMOVED Past Anesthesia/Blood Transfusion Reactions: No Reported Reaction Past Psychological History: Depression Smoking Status: Never smoker Past Alcohol Use History: Rare Past Drug Use History: None Reported - Past Family History Father Family Medical History: No Reported History Mother Family Medical History: No Reported History Medications and Allergies Home Medications Medication Instructions Recorded Confirmed Type Biotin 5 mg PO HS 01/06/16 09/14/16 History Cetirizine HCl [Zyrtec] 10 mg PO DAILY 01/06/16 09/14/16 History Cholecalciferol (Vitamin D3) 1,000 unit PO DAILY 01/06/16 09/14/16 History [Vitamin D3] Escitalopram [Lexapro] 10 mg PO HS 01/06/16 09/14/16 History INSULIN LISPRO (HumaLOG) [HumaLOG] See Protocol SQ CONTINUOUS 01/29/16 09/14/16 History Multivitamins, Thera [Multivitamin] 1 tab PO DAILY 06/23/16 09/14/16 History buPROPion [Wellbutrin] 100 mg PO HS 06/23/16 09/14/16 History Allergies Allergy/AdvReac Type Severity Reaction Status Date / Time No Known Allergies Allergy Verified 09/14/16 14:43 Objective - Vital Signs Vital signs: Vital Signs Temp 98.3 F 11/03/16 08:34 Pulse 76 11/03/16 08:34 Resp 16 11/03/16 08:34 BP 171/82 11/03/16 08:34 Pulse Ox Intake & Output 11/02/16 11/03/16 11/03/16 18:59 06:59 18:59 Weight 134.717 kg - Exam General: Patient is alert and oriented to time, place and person and cooperative with exam. She is not in acute distress. HEENT: No pallor, no icterus, no thyroid enlargement, no cervical lymphadenopathy.Right parotid area ecchymosis Chest: Bilateral equal breath sounds present. No wheezes, no crackles. Cardiovascular: Regular rate and rhythm. Abdomen: Soft, nontender, nondistended. Port site cellulitis has resolved. Small pinpoint opening remaining Neurologic: Cranial nerves II-XII intact. Strength upper and lower extremities 5/5. No focal neurologic deficits. Gait is normal. Psychiatric: No anxiety or psychosis. No suicidal thoughts. Assessment and Plan (1) Depression Status: Acute (2) Gastroparesis Status: Acute (3) Hypercholesteremia Status: Acute (4) Morbid obesity with BMI of 50.0-59.9, adult Status: Acute (5) Type 2 diabetes mellitus Status: Acute (6) Vitamin A deficiency Status: Acute Plan: 1. Continue bariatric post op diet 2. Patient reassured. CT findings discussed. 3. Encourage attending bariatric support group meeting 4. Continue diuretics 5. Follow up in 1 months [facility] 6. Follow up with Dr. CRUZ as needed 7. Follow up with Dr. Madden in 2-4 weeks to adjust insulin pump 8. Resume daily MVI 9. Increase physical activity as tolerated 10. Vitamin A supplementation
== END | disposition home or self-care (01) ==
LOC: BARWHC3 08:06
PROVIDERS: ATTEND Surgery
DX: E50.9 Vitamin A deficiency, unspecified (principal); E66.01 Morbid (severe) obesity due to excess calories; F32.9 Major depressive disorder, single episode, unspecified; K31.84 Gastroparesis; E78.00 Pure hypercholesterolemia, unspecified; E11.9 Type 2 diabetes mellitus without complications; Z68.43 Body mass index [BMI] 50.0-59.9, adult
CPT/HCPCS: 99211

== ENCOUNTER → 2016-12-20 | Outpatient (CLI) | payer BC ==
--- NOTE | 2016-12-20 09:47 | P.PN ---
Subjective Principal diagnosis: S/P RYGB The patient is a 41 year-old F S/P lap revisional YURY -en - Y gastric bypass . Tolerating soft diet. Pain well controlled. Rash along skin folds in bilateral chest wall. No fever. Her ankle edema has resolved . On Diazide. On insulin pump- lower dose She reports one episode of vomiting after eating a large piece of chicken. Recent left finger fracture. 2 episodes of hyopglycemia Height 5 feet 1 and half inch, Preop visit #1 weight 302.2 pounds, 140.25 KG, BMI 58.4 Preop visit #2 weight 136.07KG, BMI 55.8 Preop visit #3 weight 151.04KG, BMI 61.9 Preop visit #4 weight 149.4KG BMI 61.2 Lap RYGB 09/15/2016 Post op visit #1 148.96 KG weight BMI 61 Post op visit #2 138.75 KG weight BMI 56.9 Post op visit #3 134.58KG weight BMI 55.2 Post op visit #4 134.7 KG weight BMI 55.2 Post op visit #5 124.87 KG weight BMI 51.2 Review of Systems Constitutional: Denies fever, weight loss or loss of appetite HEENT: No difficulty in vision or hearing. Denies dysphagia. Cardiovascular: Denies chest pain, palpitations, dizziness, shortness of breath. Respiratory: No cough or shortness of breath Gastrointestinal: No change in bowel habits Genitourinary: No urinary incontinence, hematuria or dysuria Neurologic: No seizures, denies weakness in upper or lower extremities Musculoskeletal: Occasional left knee pain.Left finger fracture on splint Psychiatry: Known history of depression, no suicidal ideation, no anxiety or psychosis Past Medical History Past Medical History: Diabetes Mellitus Additional Past Medical History / Comment(s): Type 2(USES INSULIN PUMP) History of Any Multi-Drug Resistant Organisms: None Reported Past Surgical History: Bariatric Surgery, Section Additional Past Surgical History / Comment(s): LAP BAND 2003, , LAP BAND REMOVED Past Anesthesia/Blood Transfusion Reactions: No Reported Reaction Past Psychological History: Depression Smoking Status: Never smoker Past Alcohol Use History: Rare Past Drug Use History: None Reported - Past Family History Father Family Medical History: No Reported History Mother Family Medical History: No Reported History Medications and Allergies Home Medications Medication Instructions Recorded Confirmed Type Biotin 5 mg PO HS 01/06/16 09/14/16 History Cetirizine HCl [Zyrtec] 10 mg PO DAILY 01/06/16 09/14/16 History Cholecalciferol (Vitamin D3) 1,000 unit PO DAILY 01/06/16 09/14/16 History [Vitamin D3] Escitalopram [Lexapro] 10 mg PO HS 01/06/16 09/14/16 History INSULIN LISPRO (HumaLOG) [HumaLOG] See Protocol SQ CONTINUOUS 01/29/16 09/14/16 History Multivitamins, Thera [Multivitamin] 1 tab PO DAILY 06/23/16 09/14/16 History buPROPion [Wellbutrin] 100 mg PO HS 06/23/16 09/14/16 History Allergies Allergy/AdvReac Type Severity Reaction Status Date / Time No Known Allergies Allergy Verified 09/14/16 14:43 Objective - Exam General: Patient is alert and oriented to time, place and person and cooperative with exam. She is not in acute distress. HEENT: No pallor, no icterus, no thyroid enlargement, no cervical lymphadenopathy Chest: Bilateral equal breath sounds present. No wheezes, no crackles. Rash along bilateral chestwall between skin creases- panniculitis with a pus draining abscess along right chest wall Cardiovascular: Regular rate and rhythm. Abdomen: Soft, nontender, nondistended. Neurologic: Cranial nerves II-XII intact. Strength upper and lower extremities 5/5. No focal neurologic deficits. Gait is normal. Psychiatric: No anxiety or psychosis. No suicidal thoughts. Assessment and Plan (1) Depression Status: Acute (2) Hypercholesteremia Status: Acute (3) Type 2 diabetes mellitus Status: Acute (4) Vitamin A deficiency Status: Acute (5) Abscess Status: Acute (6) Morbid obesity with BMI of 50.0-59.9, adult Status: Acute Plan: 1. Continue bariatric post op diet 2. Check labs 3. Encourage attending bariatric support group meeting 4. Continue diuretics 5. Follow up in 3 months [facility] 6. Follow up with Dr. CRUZ today 7. Follow up with Dr. Chano STOCKTON to adjust insulin pump 8. Resume daily MVI 9. Increase physical activity - goal [id number] a day 10. Vitamin A supplementation 11. Cutaneous abscess in right chest wall- between skin folds. Spontaneously draining- cultures sent. Use warm compresses. 12. Zinc oxide cream for topical application daily in the skin folds
[2016-12-20 09:51] VITALS: BP 119/80; PULSE 74; TEMP 98.4; BMI 51.1
[2016-12-20 10:30] LABS: CH 25.7; CHCM 31.4; HCT 40.5 % (34.0-46.0); HDW 2.58; Hypochromasia Slight; MCH 26.3 pg (25.0-35.0); MCHC 32.1 g/dL (31.0-37.0); Mean Platelet Volume 7.6; RBC 4.93 m/uL (3.80-5.40); WBC 11.5 k/uL (3.8-10.6)
[2016-12-20 10:39] LABS: ALT 34 U/L (9-52); AST 23 U/L (14-36); Alkaline Phosphatase 90 U/L (38-126); Anion Gap 13 mmol/L; Blood Urea Nitrogen 14 mg/dL (7-17); Calcium 9.8 mg/dL (8.4-10.2); Carbon Dioxide 27 mmol/L (22-30); Chloride 102 mmol/L (98-107); Cholesterol 192 mg/dL (<200); Glucose 159 mg/dL (74-99); HDL Cholesterol 59 mg/dL (40-60); Iron 53 ug/dL (37-170); Magnesium 1.9 mg/dL (1.6-2.3); Non-African American GFR(MDRD) >60 (>60 ml/min/1.73 sqM); Phosphorous 3.4 mg/dL (2.5-4.5); Potassium 4.1 mmol/L (3.5-5.1); Sodium 142 mmol/L (137-145); Total Bilirubin 0.4 mg/dL (0.2-1.3); Total Protein 7.8 g/dL (6.3-8.2)
[2016-12-20 10:50] LABS: % Iron Saturation 16.9 % (20-50); Prealbumin 17 mg/dL (18-36); Total Iron Binding Capacity 314 ug/dL (265-497)
[2016-12-20 11:44] LABS: Vitamin B12 892 pg/mL (239-931)
[2016-12-20 12:18] LABS: Hemoglobin A1C 6.5 % (4.2-6.1)
== END | disposition home or self-care (01) ==
LOC: BARWHC3 08:47
PROVIDERS: ATTEND Surgery
DX: E66.01 Morbid (severe) obesity due to excess calories (principal); E11.9 Type 2 diabetes mellitus without complications; F32.9 Major depressive disorder, single episode, unspecified; E78.00 Pure hypercholesterolemia, unspecified; E50.9 Vitamin A deficiency, unspecified; L02.91 Cutaneous abscess, unspecified; Z68.43 Body mass index [BMI] 50.0-59.9, adult
CPT/HCPCS: 36415; 80053; 80061; 82306; 82525; 82607; 82728; 82746; 83036; 83540; 83550; 83735; 84100; 84134; 84255; 84425; 84443; 84590; 84630; 85027; 87070; 87075; 87205; 97803; 99211

== ENCOUNTER → 2017-02-28 | Outpatient (CLI) | payer BC ==
[2017-02-28 08:42] VITALS: BMI 48.4
[2017-02-28 11:03] VITALS: BP 129/74; PULSE 69; TEMP 98.2
== END | disposition home or self-care (01) ==
LOC: BARWHC3 07:54
PROVIDERS: ATTEND Surgery
DX: Z71.3 Dietary counseling and surveillance (principal); E66.01 Morbid (severe) obesity due to excess calories; Z68.42 Body mass index [BMI] 45.0-49.9, adult
CPT/HCPCS: 97803; 99211

== ENCOUNTER → 2017-07-06 | Outpatient (CLI) | payer BC ==
[2017-07-06 13:46] VITALS: BP 131/78; PULSE 74; RESP 15; TEMP 98.4; BMI 41.8
[2017-07-06 15:14] LABS: HGB 12.9 gm/dL (11.4-16.0); MCH 26.8 pg (25.0-35.0); MCHC 31.4 g/dL (31.0-37.0); MCV 85.5 fL (80.0-100.0); Mean Platelet Volume 7.3; Platelet Count 329 k/uL (150-450); RDW 14.2 % (11.5-15.5); WBC 10.4 k/uL (3.8-10.6)
[2017-07-06 15:27] LABS: Partial Thromboplastin Time 22.6 sec (22.0-30.0)
[2017-07-06 15:34] LABS: ALT 21 U/L (9-52); AST 26 U/L (14-36); Albumin 4.1 g/dL (3.5-5.0); Alkaline Phosphatase 86 U/L (38-126); Anion Gap 12 mmol/L; Blood Urea Nitrogen 16 mg/dL (7-17); Calcium 10.1 mg/dL (8.4-10.2); Carbon Dioxide 29 mmol/L (22-30); Chloride 97 mmol/L (98-107); Cholesterol 220 mg/dL (<200); Glucose 120 mg/dL (74-99); HDL Cholesterol 58 mg/dL (40-60); LDL Cholesterol,Calculated 132 mg/dL (0-99); Magnesium 1.9 mg/dL (1.6-2.3); Phosphorus 4.6 mg/dL (2.5-4.5); Potassium 3.7 mmol/L (3.5-5.1); Sodium 138 mmol/L (137-145); Total Bilirubin 0.3 mg/dL (0.2-1.3); Total Protein 7.8 g/dL (6.3-8.2); Triglycerides 148 mg/dL (<150)
[2017-07-06 18:50] LABS: Iron Saturation 10.38 (12.00-45.00)
[2017-07-06 18:58] LABS: Vitamin D 25 Hydroxy 63.6 ng/mL (30.0-100.0)
[2017-07-06 19:00] LABS: Folate, Serum >24.0 ng/mL
[2017-07-06 20:32] LABS: Parathyroid Hormone Intact 33.1 pg/mL (14.0-72.0)
[2017-07-06 23:11] LABS: Hemoglobin A1C 7.6 % (4.0-6.0)
[2017-07-07 14:18] LABS: Vitamin B1 102 ug/L (38-122)
[2017-07-07 14:22] LABS: Zinc, Serum 74 ug/dL (60-130)
[2017-07-08 06:05] LABS: Vitamin A 57 ug/dL (38-106)
[2017-07-09 11:01] LABS: Selenium 153 mcg/L (63-160)
--- NOTE | 2017-09-08 13:20 | P.PN ---
Subjective Progress Note Date: 07/06/17 DATE OF SERVICE: 07/06/2017 CHIEF COMPLAINT: Status post gastric bypass HISTORY OF PRESENT ILLNESS: The patient is a 41-year-old female status post gastric bypass from 09/16/[address] Roman. She reports developing chronic skin infections of her pannus for over 3 months. No reports of gastroesophageal reflux disease. She is eating moderate carbohydrates including rice and baked potatoes. She reports eating too much and too fast. She is off insulin pump for her diabetes. Now she presents 7 months post procedure. Today she comes in weighing 225 pounds. At her present height of 5 feet 1.5 inches, her body mass index was 65.2. Her highest weight was 350 pounds. Since her last visit 5 months ago in February 2017, she has lost another 35 pounds. Her body mass index was 65.2. Her body mass index is reduced to 41.9. Percent excess weight loss is 57%. PAST MEDICAL HISTORY: 1. Morbid obesity. 2. Body mass index of 65.2 3. Insulin-dependent diabetes 4. Depressive disorder 5. MRSA PAST SURGICAL HISTORY: 1. Lap band placement 2. Lap and removal 3. section 4. Gastric bypass HOME MEDICATIONS: 1. Metformin 2. Vitamin A 3. Dyazide 4. Bactrim 5. Lexapro 6. Jardiance 7. Vitamin D 8. Zyrtec 9. Calcium 10. Multivitamin ALLERGIES: Denies. SOCIAL HISTORY: No active tobacco use. FAMILY HISTORY: Family history of morbid obesity. Family history of diabetes type 2. REVIEW OF ORGAN SYSTEMS: CONSTITUTIONAL: At her present height of 5 feet 1.5 inches, her body mass index was 65.2. Her highest weight was 350 pounds. Since her last visit 5 months ago in February 2017, she has lost another 35 pounds. Her body mass index was 65.2. Her body mass index is reduced to 41.9. Percent excess weight loss is 57%. HEENT: Denies any active troubles with vision or hearing. No troubles with swallowing. ENDOCRINE: Has diabetes. No hypothyroidism. CARDIOVASCULAR: No reports of palpitations or heart attacks or chest pain. RESPIRATORY: Has daytime somnolence past obstructive sleep apnea. No asthma. GI: Denies any bright red blood per rectum. No diarrhea or constipation. No dumping. MUSCULOSKELETAL: Has lower back pain and joint pain. Has osteoarthritis of the knees. NEURO: No headaches. No seizure disorders. PSYCH: Has depression. No suicidal ideation. RHEUMATOLOGIC: No lupus. No rheumatoid arthritis. HEMATOLOGIC: Denies any abnormal bleeding or bruising. No personal history of DVTs. SKIN: No rash. No skin cancer. PHYSICAL EXAM: VITAL SIGNS: Height 5 foot 1.5 inches, weight 225 pounds. BMI 41.9. Vital Signs Temp 98.4 F 07/06/17 13:38 Pulse 74 07/06/17 13:38 Resp 15 07/06/17 13:38 BP 131/78 07/06/17 13:38 Pulse Ox GENERAL: Well-developed female in no acute distress. HEENT: No scleral icterus. Extraocular movements grossly intact. CHEST: Nonlabored respirations with equal bilateral excursions. CARDIOVASCULAR: Regular rate. Distal 2+ pulses. ABDOMEN: Obese, soft, nontender, nondistended. Moderate-sized pannus over 12 pounds. Hyperemic consistent with panniculitis. No abdominal wall hernias. MUSCULOSKELETAL: No clubbing, cyanosis, or edema. Gross strength 5/5 distal lower extremities. NEURO: No focal or lateralizing signs. Cranial nerves 2 through 12 grossly within normal limits. PSYCH: Appropriate affect. Alert and oriented to person, place and time. SKIN: Well perfused. Good skin turgor. ASSESSMENT: 1. Super morbid obesity. 2. Body mass index down from 65.2 to 41.9 3. Status post gastric bypass. 4. Dietary surveillance and counseling. 5. Insulin-dependent diabetes type 2, improved. 6. Panniculitis. 7. Obstructive sleep apnea, improved 8. Iron deficiency. PLAN: 1. Nystatin powder prescribed for panniculitis 2. Recommend bariatric metabolic panel 3. Follow-up with the bariatric dietitian regarding food portion control 4. Her blood sugars as improved whereby she is off insulin pump 5. She reports moderate improvement of her sleep Laboratory Last Values WBC 10.4 k/uL (3.8-10.6) 07/06/17 14:43 RBC 4.80 m/uL (3.80-5.40) 07/06/17 14:43 Hgb 12.9 gm/dL (11.4-16.0) 07/06/17 14:43 Hct 41.0 % (34.0-46.0) 07/06/17 14:43 MCV 85.5 fL (80.0-100.0) 07/06/17 14:43 MCH 26.8 pg (25.0-35.0) 07/06/17 14:43 MCHC 31.4 g/dL (31.0-37.0) 07/06/17 14:43 RDW 14.2 % (11.5-15.5) 07/06/17 14:43 Plt Count 329 k/uL (150-450) 07/06/17 14:43 PT 10.0 sec (9.0-12.0) 07/06/17 14:43 INR 1.0 (<1.2) 07/06/17 14:43 APTT 22.6 sec (22.0-30.0) 07/06/17 14:43 Sodium 138 mmol/L (137-145) 07/06/17 14:43 Potassium 3.7 mmol/L (3.5-5.1) 07/06/17 14:43 Chloride 97 mmol/L (98-107) L 07/06/17 14:43 Carbon Dioxide 29 mmol/L (22-30) 07/06/17 14:43 Anion Gap 12 mmol/L 07/06/17 14:43 BUN 16 mg/dL (7-17) 07/06/17 14:43 Creatinine 1.00 mg/dL (0.52-1.04) 07/06/17 14:43 Est GFR (MDRD) Af Amer >60 (>60 ml/min/1.73 sqM) 07/06/17 14:43 Est GFR (MDRD) Non-Af >60 (>60 ml/min/1.73 sqM) 07/06/17 14:43 Glucose 120 mg/dL (74-99) H 07/06/17 14:[address] Glu mg/dL 171 07/06/17 14:43 Hemoglobin A1c 7.6 % (4.0-6.0) H 07/06/17 14:43 Calcium 10.1 mg/dL (8.4-10.2) 07/06/17 14:43 Phosphorus 4.6 mg/dL (2.5-4.5) H 07/06/17 14:43 Magnesium 1.9 mg/dL (1.6-2.3) 07/06/17 14:43 Iron 33 ug/dL (50-170) L 07/06/17 14:43 TIBC 318 ug/dL (228-460) 07/06/17 14:43 Iron Saturation 10.38 (12.00-45.00) L 07/06/17 14:43 Ferritin 25.7 ng/mL (10.0-291.0) 07/06/17 14:43 Total Bilirubin 0.3 mg/dL (0.2-1.3) 07/06/17 14:43 AST 26 U/L (14-36) 07/06/17 14:43 ALT 21 U/L (9-52) 07/06/17 14:43 Alkaline Phosphatase 86 U/L (38-126) 07/06/17 14:43 Total Protein 7.8 g/dL (6.3-8.2) 07/06/17 14:43 Albumin 4.1 g/dL (3.5-5.0) 07/06/17 14:43 Prealbumin 21.0 mg/dL (18.0-42.0) 07/06/17 14:43 Triglycerides 148 mg/dL (<150) 07/06/17 14:43 Cholesterol 220 mg/dL (<200) H 07/06/17 14:43 LDL Cholesterol, Calc 132 mg/dL (0-99) H 07/06/17 14:43 HDL Cholesterol 58 mg/dL (40-60) 07/06/17 14:43 Vitamin A 57 ug/dL (38-106) 07/06/17 14:43 Vitamin B1 102 ug/L (38-122) 07/06/17 14:43 Vitamin B12 923.0 pg/mL (200.0-944.0) 07/06/17 14:43 Vitamin D 25-Hydroxy 63.6 ng/mL (30.0-100.0) 07/06/17 14:43 Folate >24.0 ng/mL 07/06/17 14:43 TSH 0.731 mIU/L (0.465-4.680) 07/06/17 14:43 PTH Intact 33.1 pg/mL (14.0-72.0) 02/21/18 14:43 Copper 1754 ug/L (810-1990) 07/06/17 14:43 Selenium 153 mcg/L (63-160) 07/06/17 14:43 Zinc 74 ug/dL (60-130) 07/06/17 14:43 Iron is low. Recommend iron supplement Cholesterol and LDL elevated. Repeat cholesterol panel fasting. Objective - Vital Signs Vital signs: Vital Signs Temp 98.4 F 07/06/17 13:38 Pulse 74 07/06/17 13:38 Resp 15 07/06/17 13:38 BP 131/78 07/06/17 13:38 Pulse Ox Intake & Output 07/05/17 07/06/17 07/06/17 18:59 06:59 18:59 Weight 102.24 kg - Labs CBC & Chem 7: 07/06/17 14:43 07/06/17 14:43
== END | disposition home or self-care (01) ==
LOC: BARWHC3 13:00
PROVIDERS: ATTEND Surgery Plastic and Reconstructive Surgery
DX: Z09 Encounter for follow-up examination after completed treatment for conditions other than malignant neoplasm (principal); E66.01 Morbid (severe) obesity due to excess calories; E11.9 Type 2 diabetes mellitus without complications; M79.3 Panniculitis, unspecified; G47.33 Obstructive sleep apnea (adult) (pediatric); E21.1 Secondary hyperparathyroidism, not elsewhere classified; D50.9 Iron deficiency anemia, unspecified; E89.1 Postprocedural hypoinsulinemia; K90.9 Intestinal malabsorption, unspecified; E55.9 Vitamin D deficiency, unspecified; K74.1 Hepatic sclerosis; N19 Unspecified kidney failure; K50.90 Crohn's disease, unspecified, without complications; Z79.2 Long term (current) use of antibiotics; Z79.84 Long term (current) use of oral hypoglycemic drugs; Z79.899 Other long term (current) drug therapy; Z79.4 Long term (current) use of insulin; Z68.41 Body mass index [BMI] 40.0-44.9, adult; Z98.84 Bariatric surgery status; Z71.3 Dietary counseling and surveillance
CPT/HCPCS: 36415; 80053; 80061; 82306; 82525; 82607; 82728; 82746; 83036; 83540; 83550; 83735; 83970; 84100; 84134; 84255; 84425; 84443; 84590; 84630; 85027; 85610; 85730; 99211

== ENCOUNTER → 2017-09-28 | Outpatient (CLI) | payer BC ==
--- NOTE | 2017-09-28 17:19 | P.PN ---
Subjective Progress Note Date: 09/28/17 HPI: No problems since her last visit in June. No dysphagia. No heartburn. No diarrhea. She has chronic constipation. She is taking iron. She is taking Nascobal. She is walking but had recently hurt her foot. She is dancing. She has received steroid shot to her right foot. She tried to run and twisted her right foot. For constipation, she takes dulcolax, miralax, and fiber supplement daily. She reports redness along the breast folds and uses Monkey butt for her panniculitis. ABDOMEN: PLAN: 1. Recommend labs for her anniversary. 2. Family is very supportive including of her . 3. Medications reviewed for causing weight gain. 4. She has moderate bleeding menomerhhagia.
[2017-09-28 17:36] VITALS: BP 108/64; PULSE 80; RESP 14; TEMP 98.4; BMI 39.4
[2017-09-28 18:03] LABS: HCT 40.5 % (34.0-46.0); HGB 13.3 gm/dL (11.4-16.0); MCH 26.8 pg (25.0-35.0); MCHC 32.7 g/dL (31.0-37.0); Mean Platelet Volume 7.5; Platelet Count 380 k/uL (150-450); RBC 4.94 m/uL (3.80-5.40); RDW 14.3 % (11.5-15.5)
[2017-09-28 18:07] LABS: Partial Thromboplastin Time 23.4 sec (22.0-30.0); Prothrombin Time 9.8 sec (9.0-12.0)
[2017-09-28 18:14] LABS: ALT 29 U/L (9-52); AST 23 U/L (14-36); Albumin 4.2 g/dL (3.5-5.0); Alkaline Phosphatase 83 U/L (38-126); Anion Gap 13 mmol/L; Blood Urea Nitrogen 19 mg/dL (7-17); Calcium 9.6 mg/dL (8.4-10.2); Carbon Dioxide 27 mmol/L (22-30); Chloride 98 mmol/L (98-107); Cholesterol 227 mg/dL (<200); Glucose 131 mg/dL (74-99); HDL Cholesterol 64 mg/dL (40-60); LDL Cholesterol,Calculated 143 mg/dL (0-99); Magnesium 1.9 mg/dL (1.6-2.3); Phosphorus 4.1 mg/dL (2.5-4.5); Potassium 3.7 mmol/L (3.5-5.1); Sodium 138 mmol/L (137-145); Total Bilirubin 0.3 mg/dL (0.2-1.3); Total Protein 7.7 g/dL (6.3-8.2); Triglycerides 99 mg/dL (<150)
[2017-09-29 02:03] LABS: Folate, Serum >24.0 ng/mL
[2017-09-29 02:05] LABS: Parathyroid Hormone Intact 54.1 pg/mL (14.0-72.0)
[2017-09-29 03:44] LABS: Hemoglobin A1C 7.1 % (4.0-6.0)
[2017-09-30 15:31] LABS: Zinc, Serum 84 ug/dL (60-130)
[2017-10-01 10:12] LABS: Vitamin A 53 ug/dL (38-106)
[2017-10-03 06:16] LABS: Vitamin B1 70 ug/L (38-122)
[2017-10-04 16:53] LABS: Selenium 138 mcg/L (63-160)
== END | disposition home or self-care (01) ==
LOC: BARWHC3 15:37
PROVIDERS: ATTEND Surgery Plastic and Reconstructive Surgery
DX: E66.01 Morbid (severe) obesity due to excess calories (principal); M79.3 Panniculitis, unspecified; K59.09 Other constipation; E21.1 Secondary hyperparathyroidism, not elsewhere classified; N92.0 Excessive and frequent menstruation with regular cycle; E89.1 Postprocedural hypoinsulinemia; D50.9 Iron deficiency anemia, unspecified; E44.0 Moderate protein-calorie malnutrition; E55.9 Vitamin D deficiency, unspecified; K74.1 Hepatic sclerosis; N19 Unspecified kidney failure; K50.90 Crohn's disease, unspecified, without complications
CPT/HCPCS: 36415; 80053; 80061; 82306; 82525; 82607; 82728; 82746; 83036; 83540; 83550; 83735; 83970; 84100; 84134; 84255; 84425; 84443; 84590; 84630; 85027; 85610; 85730; 97803; 99211

== ENCOUNTER → 2018-04-19 | Outpatient (CLI) | payer BC ==
--- NOTE | 2018-04-19 16:04 | P.PN ---
Subjective Progress Note Date: 04/19/18 HPI: She lost 20 pounds from 6 months. Highest was 350 pounds without . ABDOMEN: Severe panniculitis A/P: 1. Recommend iron infusion for symptomatic iron anemia 2. Management of diabetes with exterminator termite
[2018-04-19 17:12] VITALS: BP 128/80; PULSE 97; TEMP 97.1; BMI 35.6
== END | disposition home or self-care (01) ==
LOC: BARWHC3 14:36
PROVIDERS: ATTEND Surgery Plastic and Reconstructive Surgery
DX: M79.3 Panniculitis, unspecified (principal)
CPT/HCPCS: 99211

== ENCOUNTER → 2018-07-08 | Outpatient (CLI) | payer BC ==
--- NOTE | 2018-07-08 09:02 | MR ---
EXAMINATION TYPE: MR cervical spine wo con DATE OF EXAM: 07/08/2018 COMPARISON: None HISTORY: Radiculopathy, cervical region, pain in arms x 1 year TECHNIQUE: Multiplanar, multisequence images of the cervical spine were acquired. C2-C3: No evidence for degenerative disc disease. No disc bulge/herniation or protrusion. No Canal stenosis. Foramina are patent bilaterally. C3-C4: No evidence for degenerative disc disease. No disc bulge/herniation or protrusion. No Canal stenosis. Foramina are patent bilaterally. C4-C5: No evidence for degenerative disc disease. No disc bulge/herniation or protrusion. No Canal stenosis. Foramina are patent bilaterally. C5-C6: No evidence for degenerative disc disease. No disc bulge/herniation or protrusion. No Canal stenosis. Foramina are patent bilaterally. C6-C7: There is uncovertebral joint hypertrophy bilaterally small central and left paracentral broad- based disc bulge. No Canal stenosis. Neural foramina remain patent. C7-T1: No evidence for degenerative disc disease. No disc bulge/herniation or protrusion. No Canal stenosis. Foramina are patent bilaterally. Cervical segments are intact. There is normal alignment. Cervical spinal cord is of normal signal. Craniovertebral junction relationships are within normal limits. Subtle curvature of the vertebral column. IMPRESSION: 1. At C6-C7 there is small central left paracentral broad-based disc bulge or protrusion with no luz l stenosis or foraminal encroachment.
== END ==
LOC: RADMRIMAIN 07:42
PROVIDERS: ATTEND Internal Medicine Rheumatology
DX: M50.223 Other cervical disc displacement at C6-C7 level (principal)
CPT/HCPCS: 72141

== ENCOUNTER → 2018-10-04 | Outpatient (CLI) | payer BC ==
[2018-10-04 14:43] VITALS: BP 149/78; PULSE 86; RESP 16; TEMP 98.4; BMI 35.9
--- NOTE | 2018-10-04 15:25 | P.PN ---
Subjective Progress Note Date: 10/04/18 HPI: She comes in after seeing guest relations agent for severe panniculitis. ABDOMEN: Panniculitis active along the back. Skin of 10 to 15 pounds. ASSESSMENT: 1. Panniculitis 2. Chronic leukocytosis PLAN: 1. Recommend cotton candy maker/infectious disease for chronic leukocytosis 2. Recommend panniculectomy 3. Flucanozole for severe panniculitis Objective - Vital Signs Vital signs: Vital Signs Temp 98.4 F 10/04/18 14:40 Pulse 86 10/04/18 14:40 Resp 16 10/04/18 14:40 BP 149/78 10/04/18 14:40 Pulse Ox Intake & Output 10/03/18 10/04/18 10/04/18 18:59 06:59 18:59 Weight 87.543 kg
[2018-10-04 16:22] LABS: HGB 13.4 gm/dL (11.4-16.0); MCH 27.7 pg (25.0-35.0); MCHC 30.6 g/dL (31.0-37.0); MCV 90.6 fL (80.0-100.0); Platelet Count 375 k/uL (150-450); RBC 4.85 m/uL (3.80-5.40); RDW 12.4 % (11.5-15.5); WBC 10.5 k/uL (3.8-10.6)
[2018-10-04 16:31] LABS: INR 0.9 (<1.2); Partial Thromboplastin Time 24.6 sec (22.0-30.0); Prothrombin Time 9.7 sec (9.0-12.0)
[2018-10-04 22:46] LABS: Parathyroid Hormone Intact 64.6 pg/mL (14.0-72.0)
[2018-10-04 23:43] LABS: African American GFR (CKD) 103.9 (60.0-200.0); Albumin 4.3 g/dL (3.80-4.90); Albumin/Globulin Ratio 1.72 (1.60-3.17); Anion Gap 11.4 mmol/L (4.00-12.00); BUN/Creat Ratio 26.25 Ratio (12.00-20.00); Calcium 9.5 mg/dL (8.7-10.3); Carbon Dioxide 29.6 mmol/L (21.6-31.8); Globulin 2.5 g/dL (1.6-3.3); LDL Cholesterol,Calculated 73.2 mg/dL (0.0-131.0); Magnesium 2.2 mg/dL (1.5-2.4); Phosphorus 4.2 mg/dL (2.4-5.1); Potassium 4.1 mmol/L (3.5-5.5); Total Bilirubin 0.2 mg/dL (0.3-1.2); Total Protein 6.8 g/dL (6.2-8.2); VLDL Calculation 21.8 mg/dL (5.00-40.00)
[2018-10-05 00:04] LABS: Vitamin D 25 Hydroxy 91.6 ng/mL (30.0-100.0)
[2018-10-05 00:10] LABS: Folate, Serum >24.0 ng/mL; Iron Saturation 9.76 (12.00-45.00)
[2018-10-05 01:05] LABS: Hemoglobin A1C 6.5 % (4.0-6.0)
[2018-10-05 13:36] LABS: Zinc, Serum 61 ug/dL (60-130)
[2018-10-05 15:19] LABS: Vitamin A 68 ug/dL (38-106)
[2018-10-06 14:11] LABS: Vit B1(Thiamine) 67 ug/L (38-122)
[2018-10-07 12:37] LABS: Selenium 121 mcg/L (63-160)
== END ==
LOC: BARWHC3 14:31
PROVIDERS: ATTEND Surgery Plastic and Reconstructive Surgery
DX: M79.3 Panniculitis, unspecified (principal); D72.828 Other elevated white blood cell count; E66.01 Morbid (severe) obesity due to excess calories; E21.1 Secondary hyperparathyroidism, not elsewhere classified; E89.1 Postprocedural hypoinsulinemia; D50.9 Iron deficiency anemia, unspecified; K90.9 Intestinal malabsorption, unspecified; E55.9 Vitamin D deficiency, unspecified; K76.9 Liver disease, unspecified; N19 Unspecified kidney failure; K50.90 Crohn's disease, unspecified, without complications; Z68.35 Body mass index [BMI] 35.0-35.9, adult
CPT/HCPCS: 36415; 80053; 80061; 82306; 82525; 82607; 82728; 82746; 83036; 83540; 83550; 83735; 83970; 84100; 84134; 84255; 84425; 84443; 84590; 84630; 85027; 85610; 85730; 99211

== ENCOUNTER → 2019-03-28 | Outpatient (CLI) | payer BC ==
--- NOTE | 2019-03-28 13:21 | P.PN ---
Subjective Progress Note Date: 03/28/19 DATE OF SERVICE: 03/28/2019 CHIEF COMPLAINT: Panniculitis HISTORY OF PRESENT ILLNESS: The patient is a 43-year-old female status post gastric bypass from 09/16/2016. She is over 2 years out. She reports severe skin irritation from her pannus including troubles with grooming and fitting into clothes. She reports pulling sensation along her lower back. She reports current lower back pain. She has current difficulty with grooming and fitting clothes. She has active painful skin necrosis from candiasis intertrigo. She has been on oral medications including flucanozole and powder. She presents today for panniculectomy. She denies abdominal pain. Today she comes in weighing 198 pounds from 193 pounds, 6 months ago. At her present height of 5 feet 1.5 inches, her ideal body weight is 131 pounds. Her body mass index was 65.2. Her highest weight was 350 pounds. She has gained 5 pounds in 5 months. Her body mass index is reduced to 36.8. Percent excess weight loss is 70 %. Her total weight loss is 152 pounds. PAST MEDICAL HISTORY: 1. Morbid obesity due to excess calories 2. Body mass index of 65.2, initial 3. Insulin-dependent diabetes 4. Depressive disorder 5. MRSA PAST SURGICAL HISTORY: 1. Lap band placement 2. Lap and removal 3. section 4. Gastric bypass HOME MEDICATIONS: Home Medications Medication Instructions Recorded Confirmed Biotin 5 mg PO HS 01/06/16 11/07/18 Cetirizine HCl [Zyrtec] 10 mg PO DAILY 01/06/16 11/07/18 Escitalopram [Lexapro] 10 mg PO HS 01/06/16 11/07/18 Triamterene-Hctz 37.5-25Mg 1 cap PO DAILY 09/22/16 11/07/18 [Dyazide 37.5-25 Capsule] Vitamin A 1 tab PO DAILY 12/20/16 11/07/18 Cholecalciferol (Vitamin D3) 10,000 unit PO DAILY 07/06/17 11/07/18 [Vitamin D3] Cholecalciferol (Vitamin D3) 50,000 unit PO WEEKLY 07/06/17 11/07/18 [Vitamin D3] Empagliflozin [Jardiance] 25 mg PO QAM 07/06/17 11/07/18 metFORMIN HCL [Glucophage] 500 mg PO BID 07/06/17 11/07/18 Calcium Citrate 250 mg PO BID 10/31/18 11/07/18 Previous Rx's Medication Instructions Recorded Nystatin 100,000 Unit/gm Powd 1 applic TOPICAL BID #60 powder 04/19/18 [Mycostatin Powder] Fluconazole [Diflucan] 100 mg PO DAILY #14 tablet 10/04/18 ALLERGIES: Denies. SOCIAL HISTORY: No active tobacco use. FAMILY HISTORY: Family history of morbid obesity. Family history of diabetes type 2. REVIEW OF ORGAN SYSTEMS: CONSTITUTIONAL: At her present height of 5 feet 1.5 inches, her body mass index was 65.2. Her highest weight was 350 pounds. HEENT: Denies any active troubles with vision or hearing. No troubles with swallowing. ENDOCRINE: Has diabetes. No hypothyroidism. CARDIOVASCULAR: No reports of palpitations or heart attacks or chest pain. RESPIRATORY: Has daytime somnolence past obstructive sleep apnea. No asthma. GI: Denies any bright red blood per rectum. No diarrhea or constipation. No dumping. MUSCULOSKELETAL: Has lower back pain and joint pain. Has osteoarthritis of the knees. NEURO: No headaches. No seizure disorders. PSYCH: Has depression. No suicidal ideation. RHEUMATOLOGIC: No lupus. No rheumatoid arthritis. HEMATOLOGIC: Denies any abnormal bleeding or bruising. No personal history of DVTs. SKIN: Has severe panniculitis. No skin cancer. PHYSICAL EXAM: VITAL SIGNS: Height 5 foot 1.5 inches, weight 198 pounds. BMI 36.8 Vital Signs Temp 98.3 F 03/28/19 13:51 Pulse 98 03/28/19 13:51 Resp BP 135/86 03/28/19 13:51 Pulse Ox GENERAL: Well-developed female in no acute distress. HEENT: No scleral icterus. Extraocular movements grossly intact. CHEST: Nonlabored respirations with equal bilateral excursions. CARDIOVASCULAR: Regular rate. Distal 2+ pulses. ABDOMEN: Severe erythema along pannus with redness. Pannus hangs over pubis and weight of 10 to 15 pounds. MUSCULOSKELETAL: No clubbing, cyanosis, or edema. Gross strength 5/5 distal lower extremities. NEURO: No focal or lateralizing signs. Cranial nerves 2 through 12 grossly within normal limits. PSYCH: Appropriate affect. Alert and oriented to person, place and time. SKIN: Well perfused. Good skin turgor. ASSESSMENT: 1. Super morbid obesity. 2. Body mass index down from 65.2 to 36.8 3. Status post gastric bypass. 4. Dietary surveillance and counseling. 5. Insulin-dependent diabetes type 2, improved. 6. Panniculitis. PLAN: 1. Recommend panniculectomy which should correct her functional deficit and symptoms. 2. Recommend high protein diet. 3. Risks of bleeding, needs for drains, flap failure, infection, need for further surgery were described. She is high risk for giacomo-operative complications with anticipated 10+ skin resection. 4. Placement of JUSTICE drains described. 5. All risks of surgery described for panniculectomy.
[2019-03-28 13:54] VITALS: BP 135/86; PULSE 98; TEMP 98.3; BMI 36.8
== END | disposition home or self-care (01) ==
LOC: BARWHC3 12:14
PROVIDERS: ATTEND Surgery Plastic and Reconstructive Surgery
DX: E66.01 Morbid (severe) obesity due to excess calories (principal); E11.9 Type 2 diabetes mellitus without complications; F32.9 Major depressive disorder, single episode, unspecified; M79.3 Panniculitis, unspecified; Z68.36 Body mass index [BMI] 36.0-36.9, adult; Z79.4 Long term (current) use of insulin; Z22.322 Carrier or suspected carrier of Methicillin resistant Staphylococcus aureus; Z98.84 Bariatric surgery status; Z79.899 Other long term (current) drug therapy
CPT/HCPCS: 99211

== ENCOUNTER → 2019-03-28 | Outpatient (CLI) | payer BC ==
[2019-03-28 14:55] LABS: ALT 23 U/L (9-52); AST 22 U/L (14-36); African American GFR (CKD) >90 (>60 ml/min/1.73 sqM); Albumin 3.9 g/dL (3.5-5.0); Alkaline Phosphatase 67 U/L (38-126); Anion Gap 7 mmol/L; Blood Urea Nitrogen 11 mg/dL (7-17); Calcium 9.3 mg/dL (8.4-10.2); Carbon Dioxide 29 mmol/L (22-30); Chloride 103 mmol/L (98-107); Glucose 94 mg/dL (74-99); Potassium 4.3 mmol/L (3.5-5.1); Sodium 139 mmol/L (137-145); Total Bilirubin 0.2 mg/dL (0.2-1.3); Total Protein 6.9 g/dL (6.3-8.2)
[2019-03-28 15:12] LABS: Basophils # (A) 0.1 k/uL (0-0.2); Basophils % (A) 1 %; Eosinophils # (A) 0.8 k/uL (0-0.7); Eosinophils % (A) 7 %; HCT 39.8 % (34.0-46.0); HGB 12.8 gm/dL (11.4-16.0); Lymphocytes # (A) 3.1 k/uL (1.0-4.8); Lymphocytes % (A) 29 %; MCHC 32.3 g/dL (31.0-37.0); Mean Platelet Volume 6.7; Monocytes # (A) 0.6 k/uL (0-1.0); Monocytes % (A) 6 %; Neutrophils # (A) 5.7 k/uL (1.3-7.7); Neutrophils % (A) 54 %; Platelet Count 323 k/uL (150-450); RBC 4.28 m/uL (3.80-5.40); RDW 12.3 % (11.5-15.5); WBC 10.4 k/uL (3.8-10.6)
== END | disposition home or self-care (01) ==
LOC: LABPAT 13:27
PROVIDERS: ATTEND Surgery Plastic and Reconstructive Surgery
DX: Z01.812 Encounter for preprocedural laboratory examination (principal); Z01.818 Encounter for other preprocedural examination
CPT/HCPCS: 80053; 85025; 93005

== ENCOUNTER 2019-04-16 11:20 | Day surgery (SDC) | payer BC ==
[2019-04-11 09:35] VITALS: BMI 35.3
--- NOTE | 2019-04-16 09:30 | P.GSHP ---
History of Present Illness H&P Date: 04/16/19 DATE OF SERVICE: 04/16/2019 CHIEF COMPLAINT: Panniculitis HISTORY OF PRESENT ILLNESS: The patient is a 43-year-old female status post gastric bypass from 09/16/2016. She is over 2 years out. She comes in after seeing gear roller for severe panniculitis. She presents with new concerns for surgical resection of her pannus. Her weight has been unchanged in the past 6 months. Today she comes in weighing 193 pounds from 190 pounds from 192 pounds, 6 months ago. At her height of 5 feet 1.5 inches, her body mass index was 65.2. Her highest weight was 350 pounds. She has lost another 2 pounds, in 6 months. Her body mass index was 65.2. Her body mass index is reduced to 35.9. Percent excess weight loss is 72%. Her total weight loss is 159 pounds. PAST MEDICAL HISTORY: 1. Morbid obesity due to excess calories 2. Body mass index of 65.2, initial 3. Insulin-dependent diabetes 4. Depressive disorder 5. MRSA PAST SURGICAL HISTORY: 1. Lap band placement 2. Lap and removal 3. section 4. Gastric bypass HOME MEDICATIONS: Home Medications Medication Instructions Recorded Confirmed Biotin 5 mg PO HS 01/06/16 11/07/18 Cetirizine HCl [Zyrtec] 10 mg PO DAILY 01/06/16 11/07/18 Escitalopram [Lexapro] 10 mg PO HS 01/06/16 11/07/18 Triamterene-Hctz 37.5-25Mg 1 cap PO DAILY 09/22/16 11/07/18 [Dyazide 37.5-25 Capsule] Vitamin A 1 tab PO DAILY 12/20/16 11/07/18 Cholecalciferol (Vitamin D3) 10,000 unit PO DAILY 07/06/17 11/07/18 [Vitamin D3] Cholecalciferol (Vitamin D3) 50,000 unit PO WEEKLY 07/06/17 11/07/18 [Vitamin D3] Empagliflozin [Jardiance] 25 mg PO QAM 07/06/17 11/07/18 metFORMIN HCL [Glucophage] 500 mg PO BID 07/06/17 11/07/18 Calcium Citrate 250 mg PO BID 10/31/18 11/07/18 Previous Rx's Medication Instructions Recorded Nystatin 100,000 Unit/gm Powd 1 applic TOPICAL BID #60 powder 04/19/18 [Mycostatin Powder] Fluconazole [Diflucan] 100 mg PO DAILY #14 tablet 10/04/18 ALLERGIES: Denies. SOCIAL HISTORY: No active tobacco use. FAMILY HISTORY: Family history of morbid obesity. Family history of diabetes type 2. REVIEW OF ORGAN SYSTEMS: CONSTITUTIONAL: At her present height of 5 feet 1.5 inches, her body mass index was 65.2. Her highest weight was 350 pounds. HEENT: Denies any active troubles with vision or hearing. No troubles with swallowing. ENDOCRINE: Has diabetes. No hypothyroidism. CARDIOVASCULAR: No reports of palpitations or heart attacks or chest pain. RESPIRATORY: Has daytime somnolence past obstructive sleep apnea. No asthma. GI: Denies any bright red blood per rectum. No diarrhea or constipation. No dumping. MUSCULOSKELETAL: Has lower back pain and joint pain. Has osteoarthritis of the knees. NEURO: No headaches. No seizure disorders. PSYCH: Has depression. No suicidal ideation. RHEUMATOLOGIC: No lupus. No rheumatoid arthritis. HEMATOLOGIC: Denies any abnormal bleeding or bruising. No personal history of DVTs. SKIN: No rash. No skin cancer. PHYSICAL EXAM: VITAL SIGNS: Height 5 foot 1.5 inches, weight 193 pounds. BMI 35.9 GENERAL: Well-developed female in no acute distress. HEENT: No scleral icterus. Extraocular movements grossly intact. CHEST: Nonlabored respirations with equal bilateral excursions. CARDIOVASCULAR: Regular rate. Distal 2+ pulses. ABDOMEN: Panniculitis active along the back. Skin of 10 to 15 pounds. MUSCULOSKELETAL: No clubbing, cyanosis, or edema. Gross strength 5/5 distal lower extremities. NEURO: No focal or lateralizing signs. Cranial nerves 2 through 12 grossly within normal limits. PSYCH: Appropriate affect. Alert and oriented to person, place and time. SKIN: Well perfused. Good skin turgor. ASSESSMENT: 1. Super morbid obesity. 2. Body mass index down from 65.2 to 35.9 3. Status post gastric bypass. 4. Dietary surveillance and counseling. 5. Insulin-dependent diabetes type 2, improved. 6. Panniculitis. 7. Obstructive sleep apnea, improved 8. Iron deficiency anemia due to inadequate intake and intestinal malabsorption. 9. Chronic leukocytosis PLAN: 1. Recommend panniculectomy for chronic panniculitis with concomittant severe lower back pain and uncontrolled symptoms despite systemic and local treatment including limitation of her activities of daily living. Anticipated resection of 15+ pounds described. 2. Recommend 2 week protein diet for optimal recovery 3. Risks of bleeding, needs for drains, flap failure, infection, need for further surgery were described. She is high risk for giacomo-operative complications with anticipated 15+ skin resection. 4. Recommend machine brush maker/infectious disease consultation for chronic leukocytosis 5. Recommend panniculectomy as she has severe recurrent panniculitis despite treatment 6. In the interim, prescription for flucanozole for severe panniculitis Past Medical History Past Medical History: Diabetes Mellitus, Osteoarthritis (OA), Skin Disorder Additional Past Medical History / Comment(s): migraines, eczema, anemia, History of Any Multi-Drug Resistant Organisms: MRSA Date of last positivie culture/infection: 06/27/17 MDRO Source:: R BUTTOCK Past Surgical History: Bariatric Surgery, Section Additional Past Surgical History / Comment(s): LAP BAND 2003, LAP BAND REMOVED, gastric bypass 09/17/16 Past Anesthesia/Blood Transfusion Reactions: No Reported Reaction Smoking Status: Never smoker - Past Family History Father Family Medical History: No Reported History Mother Family Medical History: No Reported History Brother(s) Family Medical History: No Reported History Sister(s) Family Medical History: No Reported History Son(s) Family Medical History: No Reported History Medications and Allergies Home Medications Medication Instructions Recorded Confirmed Type Biotin 5 mg PO HS 01/06/16 04/11/19 History Cetirizine HCl [Zyrtec] 10 mg PO DAILY 01/06/16 04/11/19 History Escitalopram [Lexapro] 10 mg PO HS 01/06/16 04/11/19 History Triamterene-Hctz 37.5-25Mg 1 cap PO HS 09/22/16 04/11/19 History [Dyazide 37.5-25 Capsule] Vitamin A 8,000 unit PO DAILY 12/20/16 04/11/19 History Cholecalciferol (Vitamin D3) 10,000 unit PO DAILY 07/06/17 04/11/19 History [Vitamin D3] metFORMIN HCL [Glucophage] 1,000 mg PO BID 07/06/17 04/11/19 History Nystatin 100,000 Unit/gm Powd 1 applic TOPICAL BID #60 powder 04/19/18 04/11/19 Rx [Mycostatin Powder] Calcium Citrate 250 mg PO BID 10/31/18 04/11/19 History Allergies Allergy/AdvReac Type Severity Reaction Status Date / Time No Known Allergies Allergy Verified 04/11/19 09:25
[~2019-04-16 11:20] MED LIST changes: +DEXAMETHASONE SOD PHOSPHATE 10 MG/ML 1 ML VIAL IV ONE; +HYDROmorphone 0.5 MG/0.5 ML SYRINGE IVP PRN; +LIDOCAINE 1% 20 ML VIAL (10MG/ML) FOR IV START INTRADERMA PRN; -ONDANSETRON 4 MG/2 ML VIAL IVP NR; +ONDANSETRON 4 MG/2 ML VIAL IVP ONE; -PANTOPRAZOLE 40 MG/10 ML VIAL IVP NR; -SCOPOLAMINE 1.5MG/72HR PATCH TRANSDERM NR; +SCOPOLAMINE 1.5MG/72HR PATCH TRANSDERM ONE; -SODIUM CHLORIDE 0.9% 2,000 ML IV SCH; -SODIUM CHLORIDE 0.9% 250 ML in EMPTY BAG 1 BAG IV PRN; -SODIUM CHLORIDE 0.9% 500 ML in EMPTY BAG 1 BAG IV PRN
[2019-04-16] MEDS: LACTATED RINGERS 1,000 ML IV SCH (12:13)
[2019-04-16] MEDS ORDERED: HEPARIN SODIUM,PORCINE 5,000 UNIT/ML 1 ML VIAL SQ STA (12:15)
[2019-04-16] MEDS ORDERED: MIDAZOLAM 2 MG/2 ML VIAL IV ONE (12:28)
[2019-04-16] MEDS ORDERED: fentaNYL (PF) 50 MCG/ML 2 ML AMP IV ONE (12:28)
[2019-04-16 12:31] LABS: Glucose,Whole Blood 119 mg/dL (75-99)
[2019-04-16] MEDS ORDERED: LACTATED RINGERS 1,000 ML IV ONE ×2 (13:29→15:00)
--- NOTE | 2019-04-16 13:54 | P.ANPRN ---
Procedure Note - Anesthesia - Nerve Block Performed Bilateral Transversus Abdominis Single Time Out Performed: Yes Date of Procedure: 04/16/19 Procedure Start Time: 12:28 Procedure Stop Time: 12:39 Location of Patient: PreOp Indication: Acute Post-Operative Pain, Requested by Surgeon Specifically requested for management of pain by DrJayla: Suma Noyola Sedation Type: Sedate with meaningful contact maintained Preparation: Sterile Prep Position: Supine Catheter: None Needle Types: Pajunk Needle Gauge: 20 Ultrasound used to visualize needle placement: Yes Ultrasound used to observe medication spread: Yes Injectate: Other (see comment) (0.25% ropivacaine/0.5% lidocaine 25 mL each side) Adjunct: Epinephrine (see comment for dilution ratio) (1:200,000) Blood Aspirated: No Pain Paresthesia on Injection Noted: No Resistance on Injection: Normal Image Stored and Saved: Yes Events: Uneventful and Well Tolerated
[2019-04-16 15:52] LABS: Glucose,Whole Blood 177 mg/dL (75-99)
[2019-04-16] MEDS ORDERED: ONDANSETRON 4 MG/2 ML VIAL IVP PRN (15:54)
--- NOTE | 2019-04-16 15:54 | P.OP ---
Date of Procedure: 04/16/19 Description of Procedure: SURGEON: BOB SAMANIEGO MD PREOPERATIVE DIAGNOSES: 1. Morbid obesity due to excess calories. 2. Body mass index down from 65.2 to 35.9 3. Status post gastric bypass. 4. Dietary surveillance and counseling. 5. Insulin-dependent diabetes type 2, 6. Panniculitis, severe recalcitrant 7. Obstructive sleep apnea 8. Iron deficiency anemia due to inadequate intake and intestinal malabsorption. 9. Chronic leukocytosis 10. Central adiposity 11. Acute severe intertrigo candidiasis with panniculitis of the abdomen, back and breasts POSTOPERATIVE DIAGNOSES: 1. Morbid obesity due to excess calories. 2. Body mass index down from 65.2 to 35.9 3. Status post gastric bypass. 4. Dietary surveillance and counseling. 5. Insulin-dependent diabetes type 2, 6. Panniculitis, severe recalcitrant 7. Obstructive sleep apnea 8. Iron deficiency anemia due to inadequate intake and intestinal malabsorption. 9. Chronic leukocytosis 10. Central adiposity 11. Acute severe intertrigo candidiasis with panniculitis of the abdomen, back and breasts OPERATION: 1. Panniculectomy, 7.5 pounds. ANESTHESIA: General ESTIMATED BLOOD LOSS: 350 mL SPECIMENS REMOVED: Pannus 7.5 pounds. COMPLICATIONS: None. CONDITION: Stable. DRAINS: Two #19 Matteo drains below abdominal flap extending through the pubis. OPERATIVE FINDINGS: 1. Pannus weighing 7.5 pounds, excised. INDICATIONS: The patient is a 43-year-old female status post gastric bypass from 09/16/2016. She is over 2 years out. She comes in after seeing dental manager for severe panniculitis. She presents with new concerns for surgical resection of her pannus. Her weight has been unchanged in the past 6 months. Today she comes in weighing 193 pounds from 190 pounds from 192 pounds, 6 months ago. At her height of 5 feet 1.5 inches, her body mass index was 65.2. Her highest weight was 350 pounds. She has lost another 2 pounds, in 6 months. Her body mass index was 65.2. Her body mass index is reduced to 35.9. Percent excess weight loss is 72%. Her total weight loss is 159 pounds. Given her clinical symptoms, including massive weight loss, she elected for surgical intervention with a panniculectomy. Benefits and risks of the procedure including bleeding, infection, risk of flap failure, abdominal wall seromas, chronic pain were described at length. Informed consent was obtained. DESCRIPTION: In the preanesthesia care unit the patient was marked with an indelible marker. She had also been given heparin subcutaneously. The patient was brought into the operating room and laid in supine position. After general induction, a Loya catheter was placed. The abdomen was then prepped and draped in standard sterile fashion using ChloraPrep. The skin was prepped as far laterally to the back, inferiorly to the upper thighs and superiorly to above the bilateral breasts. A timeout protocol was confirmed with the surgical team regarding patient's name, procedure to be performed, including preoperative medications. She had received Ancef IV antibiotics. Once the time-out protocol was confirmed with the surgical team, the patient was re-marked with indelible marker whereby the midline of the xiphoid to the mons pubis was marked. The anterior/superior iliac spine along the bilateral hips was also marked. Approximately 8 cm above the pubis commissure a transverse incision was made for the inferior portion of the flap. Using a #10 blade, the incision was taken from the midline laterally to above the anterior/superior iliac spine, initially on the left side of the patient and then on the right side of the patient. Electro-Bovie cautery was used to control for hemostasis. The disse ction was taken down to the level of the fascia. Landmarks used were the xiphoid process as well as the bilateral costal margins for the superior margin. Care was taken to avoid any creation of dog ears during the dissection. Hemostasis was once again checked with electro-Bovie cautery and all defects were addressed. Attention was now brought to closure of the flap. Using stainless steel skin jacob, the midline was once again marked of the upper flap as well as the pubic commissure. The patient was placed in a flexed position of approximately 20 degrees at the hips. The pannus was extended inferiorly to the feet. The upper flap was created once the excess skin was excised. Again care was taken to avoid any dog ears along the lateral aspect of the incisions. Once excised, the pannus was weighed at 7.5 pounds. The upper and lower flaps were reapproximated at the midline and then laterally to the skin with skin jacob. Once reapproximated, the skin was closed in layers using 0 Vicryl for the superficial fascial system followed by running 3-0 Monocryl for the deep dermis in a running subcuticular fashion. Prior to skin closure, two round #19 Matteo drains were placed underneath the flap and brought out just inferior to the incision along the pubis. Drain stitch using 2-0 nylon was placed. Once the incision was closed, bulb suction was attached. Hemostasis was checked. At the end of the procedure, the needle, sponge and instrument count was verified correct. Exofin tape was placed along the length of the incision. Optifoam dressings were applied over the incision and used as a drain sponge. The patient was then transferred to a hospital bed in a beach chair position. An abdominal binder was placed and marked. The patient was taken to the postanesthesia care unit in stable condition, awake and extubated. Total time for procedure from skin to skin was 122 minutes. The intraoperative findings were discussed with her parents who was pleased with the level of care.
[2019-04-16] MEDS ORDERED: diphenhydrAMINE 50 MG/ML 1 ML VIAL IVP PRN (15:55)
[2019-04-16] MEDS ORDERED: NALOXONE 0.4 MG/ML 1 ML VIAL IV PRN (15:55)
[2019-04-16 16:56] LABS: Glucose,Whole Blood 204 mg/dL (75-99)
[2019-04-16] MEDS: 0.9% NACL WITH KCL 20 MEQ/L 1,000 ML IV SCH ×2 (17:38→17:39)
[2019-04-16] MEDS: INSULIN ASPART (NovoLOG) 100 UNIT/ML VIAL SQ SCH (17:39)
[2019-04-16] MEDS: metFORMIN 500 MG TAB PO SCH (17:42)
[2019-04-16] MEDS ORDERED: ESCITALOPRAM 10 MG TAB PO SCH (21:00)
[2019-04-16] MEDS: HYDROmorphone 1 MG/ML 1 ML SYRINGE IVP PRN (21:09)
[2019-04-17 00:39] LABS: Glucose,Whole Blood 107 mg/dL (75-99)
[2019-04-17] MEDS: INSULIN ASPART (NovoLOG) 100 UNIT/ML VIAL SQ SCH ×3 (01:26→11:51)
[2019-04-17] MEDS: 0.9% NACL WITH KCL 20 MEQ/L 1,000 ML IV SCH (04:19)
[2019-04-17] MEDS: LACTATED RINGERS 1,000 ML IV SCH (04:51)
[2019-04-17] MEDS: HYDROmorphone 1 MG/ML 1 ML SYRINGE IVP PRN ×2 (06:08→12:39)
[2019-04-17 06:14] LABS: Glucose,Whole Blood 106 mg/dL (75-99)
[2019-04-17 07:06] LABS: Glucose,Whole Blood 115 mg/dL (75-99)
[2019-04-17 07:56] LABS: Basophils % (A) 0 %; Eosinophils # (A) 0.5 k/uL (0-0.7); Eosinophils % (A) 6 %; HCT 34.2 % (34.0-46.0); HGB 10.8 gm/dL (11.4-16.0); Lymphocytes # (A) 1.4 k/uL (1.0-4.8); Lymphocytes % (A) 16 %; MCHC 31.5 g/dL (31.0-37.0); MCV 91.8 fL (80.0-100.0); Mean Platelet Volume 7.2; Monocytes # (A) 0.5 k/uL (0-1.0); Monocytes % (A) 6 %; Neutrophils % (A) 71 %; Platelet Count 275 k/uL (150-450); RBC 3.73 m/uL (3.80-5.40); WBC 8.5 k/uL (3.8-10.6)
[2019-04-17] MEDS ORDERED: 0.9% NACL WITH KCL 20 MEQ/L 1,000 ML IV SCH (08:00)
[2019-04-17] MEDS: metFORMIN 500 MG TAB PO SCH (08:13)
[2019-04-17 08:40] VITALS: RESP 12
[2019-04-17] MEDS ORDERED: ENOXAPARIN 40 MG/0.4 ML SYRINGE SQ SCH (09:00)
[2019-04-17] MEDS ORDERED: FLUCONAZOLE 150 MG TAB PO SCH (09:00)
[2019-04-17] MEDS ORDERED: LORATADINE 10 MG TAB PO SCH (09:00)
[2019-04-17] MEDS ORDERED: PANTOPRAZOLE 40 MG/10 ML VIAL IV SCH (09:00)
[2019-04-17 11:51] LABS: Glucose,Whole Blood 139 mg/dL (75-99)
[2019-04-17 15:27] VITALS: BP 126/77; PULSE 62; TEMP 98.7
--- NOTE | 2019-04-17 15:42 | P.DS ---
Providers Expected date of discharge: 04/17/19 Attending physician: Suma Noyola Primary care physician: Brenden Chicas [facility] Course: 43-year-old female who underwent panniculectomy with Dr. Noyola on 04/16/2019. Patient is doing well postoperatively without any immediate complications. Pain is controlled on oral medications. She is tolerating diet without nausea or vomiting. Vital signs stable. She is stable for discharge home today. Please see EMR for further hospital course details. Discharge diagnosis 1. Morbid obesity due to excess calories. 2. Body mass index down from 65.2 to 35.9 3. Status post gastric bypass. 4. Dietary surveillance and counseling. 5. Insulin-dependent diabetes type 2, 6. Panniculitis, severe recalcitrant 7. Obstructive sleep apnea 8. Iron deficiency anemia due to inadequate intake and intestinal malabsorption. 9. Chronic leukocytosis 10. Central adiposity 11. Acute severe intertrigo candidiasis with panniculitis of the abdomen, back and breasts Nurse practitioner note has been reviewed by physician. Signing provider agrees with the documented findings, assessment, and plan of care. Plan - Discharge Summary Discharge Rx Participant: Yes New Discharge Prescriptions: New Acetaminophen Tab [Tylenol Tab] 650 mg PO Q4H PRN #30 tablet PRN Reason: Pain Fluconazole [Diflucan] 150 mg PO DAILY #21 tab Continue Cetirizine HCl [Zyrtec] 10 mg PO DAILY Biotin 5 mg PO HS Escitalopram [Lexapro] 10 mg PO HS Vitamin A 8,000 unit PO DAILY metFORMIN HCL [Glucophage] 1,000 mg PO BID Cholecalciferol (Vitamin D3) [Vitamin D3] 10,000 unit PO DAILY Calcium Citrate 250 mg PO BID No Action Nystatin 100,000 Unit/gm Powd [Mycostatin Powder] 1 applic TOPICAL BID #60 powder Discharge Medication List Biotin 5 mg PO HS 01/06/16 [History] Cetirizine HCl [Zyrtec] 10 mg PO DAILY 01/06/16 [History] Escitalopram [Lexapro] 10 mg PO HS 01/06/16 [History] Vitamin A 8,000 unit PO DAILY 12/20/16 [History] Cholecalciferol (Vitamin D3) [Vitamin D3] 10,000 unit PO DAILY 07/06/17 [History] metFORMIN HCL [Glucophage] 1,000 mg PO BID 07/06/17 [History] Nystatin 100,000 Unit/gm Powd [Mycostatin Powder] 1 applic TOPICAL BID #60 powder 04/19/18 [Rx] Calcium Citrate 250 mg PO BID 10/31/18 [History] Acetaminophen Tab [Tylenol Tab] 650 mg PO Q4H PRN #30 tablet 04/17/19 [Rx] Fluconazole [Diflucan] 150 mg PO DAILY #21 tab 04/17/19 [Rx] Follow up [facility]ment(s[facility]Ref[facility] [place] [place] [facility] - 04/20/19 10:00 am Activity/Diet/Wound Care/Special Instructions: Diet as tolerated Strip or milk JUSTICE drains 3-4 times a day to prevent clogging Do not remove abdominal binder NO showering!!! No lifting over 4 pounds
[2019-04-18] MEDS ORDERED: PANTOPRAZOLE 40 MG TABLET PO SCH (07:30)
== END 2019-04-17 17:06 | disposition home or self-care (01) ==
LOC: OR 11:20 → 4SSUR 15:23 → OR 04-17 17:06
PROVIDERS: ATTEND Surgery Plastic and Reconstructive Surgery
DX: L30.4 Erythema intertrigo (principal); B37.2 Candidiasis of skin and nail; E66.01 Morbid (severe) obesity due to excess calories; E11.9 Type 2 diabetes mellitus without complications; E65 Localized adiposity; M79.3 Panniculitis, unspecified; G47.33 Obstructive sleep apnea (adult) (pediatric); D50.8 Other iron deficiency anemias; K90.9 Intestinal malabsorption, unspecified; D72.829 Elevated white blood cell count, unspecified; F32.9 Major depressive disorder, single episode, unspecified; M19.90 Unspecified osteoarthritis, unspecified site; G43.909 Migraine, unspecified, not intractable, without status migrainosus; Z91.19 Patient's noncompliance with other medical treatment and regimen; Z79.84 Long term (current) use of oral hypoglycemic drugs; Z68.35 Body mass index [BMI] 35.0-35.9, adult; Z98.84 Bariatric surgery status; Z71.3 Dietary counseling and surveillance; Z79.899 Other long term (current) drug therapy; Z86.14 Personal history of Methicillin resistant Staphylococcus aureus infection; Z98.891 History of uterine scar from previous surgery; Z83.3 Family history of diabetes mellitus; Z83.49 Family history of other endocrine, nutritional and metabolic diseases
CPT/HCPCS: 15830; 64488; J2250; J1644; J1100; J0690; J2405; J3010; J1170; 81025; 85025; 94760

== ENCOUNTER → 2019-04-20 | Outpatient (CLI) | payer BC ==
[2019-04-20 10:26] VITALS: BP 133/84; PULSE 89; TEMP 98.1; BMI 35.6
--- NOTE | 2019-04-20 11:01 | P.PN ---
Subjective Progress Note Date: 04/20/19 DATE OF SERVICE: 04/20/2019 CHIEF COMPLAINT: Panniculitis HISTORY OF PRESENT ILLNESS: The patient is a 43-year-old female status post gastric bypass from 09/16/2016. She is over 2 years out. She is status post panniculectomy, 7.5 pounds, 04/16/19. Her pain is well-controlled. She is not in any pain medications from her panniculectomy. Today she comes in weighing 192 pounds from 198 pounds, 3 weeks ago. At her present height of 5 feet 1.5 inches, her ideal body weight is 131 pounds. Her body mass index was 65.2. Her highest weight was 350 pounds. She has lost 6 pounds in 3 weeks. Her body mass index is reduced to 35.7. Percent excess weight loss is 72 %. Her total weight loss is 158 pounds. PHYSICAL EXAM: VITAL SIGNS: Height 5 foot 1.5 inches, weight 192 pounds. BMI 35.7 Vital Signs Temp 98.1 F 04/20/19 10:16 Pulse 89 04/20/19 10:16 Resp BP 133/84 04/20/19 10:16 Pulse Ox GENERAL: Well-developed female in no acute distress. HEENT: No scleral icterus. Extraocular movements grossly intact. CHEST: Nonlabored respirations with equal bilateral excursions. CARDIOVASCULAR: Regular rate. Distal 2+ pulses. ABDOMEN: Otherwise incision clean dry and intact. No signs of infection. External dressing discontinued. Drain site dressing changed. Drains are serous sanguinous. Drainage over 30 mL daily. MUSCULOSKELETAL: No clubbing, cyanosis, or edema. Gross strength 5/5 distal lower extremities. NEURO: No focal or lateralizing signs. Cranial nerves 2 through 12 grossly within normal limits. PSYCH: Appropriate affect. Alert and oriented to person, place and time. SKIN: Well perfused. Good skin turgor. 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 She has psoriasis-like lesions along the thighs. ASSESSMENT: 1. Super morbid obesity. 2. Body mass index down from 65.2 to 35.7 3. Status post gastric bypass. 4. Dietary surveillance and counseling. 5. Insulin-dependent diabetes type 2, improved. 6. Panniculitis, status post panniculectomy PLAN: 1. Recommend follow-up in 1 week for change of dressings and wound check. Objective - Vital Signs Vital signs: Vital Signs Temp 98.1 F 04/20/19 10:16 Pulse 89 04/20/19 10:16 Resp BP 133/84 04/20/19 10:16 Pulse Ox Intake & Output 04/19/19 04/20/19 04/20/19 18:59 06:59 18:59 Weight 87.09 kg
== END | disposition home or self-care (01) ==
LOC: BARWHC3 09:52
PROVIDERS: ATTEND Surgery Plastic and Reconstructive Surgery
DX: M79.3 Panniculitis, unspecified (principal); E66.01 Morbid (severe) obesity due to excess calories; Z68.35 Body mass index [BMI] 35.0-35.9, adult; Z98.84 Bariatric surgery status
CPT/HCPCS: 99212

== ENCOUNTER → 2019-04-26 | Outpatient (CLI) | payer BC ==
[2019-04-26 08:15] VITALS: BP 128/84; PULSE 84; RESP 16; TEMP 98.5; BMI 35.6
--- NOTE | 2019-04-26 09:05 | P.PN ---
Subjective Progress Note Date: 04/26/19 DATE OF SERVICE: 04/26/2019 CHIEF COMPLAINT: Panniculitis HISTORY OF PRESENT ILLNESS: The patient is a 43-year-old female status post gastric bypass from 09/16/2016. She is over 2 years out. She is status post panniculectomy, 7.5 pounds, 04/16/19. She is 1 week out. She is doing well. Today she comes in weighing 192 pounds from 192 pounds, 1 week ago. At her present height of 5 feet 1.5 inches, her ideal body weight is 131 pounds. Her body mass index was 65.2. Her highest weight was 350 pounds. Her weight is not changed. Her body mass index is reduced to 35.7. Percent excess weight loss is 72 %. Her total weight loss is 158 pounds. PHYSICAL EXAM: VITAL SIGNS: Height 5 foot 1.5 inches, weight 192 pounds. BMI 35.7 Vital Signs Temp 98.5 F 04/26/19 08:13 Pulse 84 04/26/19 08:13 Resp 16 04/26/19 08:13 BP 128/84 04/26/19 08:13 Pulse Ox GENERAL: Well-developed female in no acute distress. HEENT: No scleral icterus. Extraocular movements grossly intact. CHEST: Nonlabored respirations with equal bilateral excursions. CARDIOVASCULAR: Regular rate. Distal 2+ pulses. ABDOMEN: Drain site dressing changed. JUSTICE serous. No infection. External dressing removed. MUSCULOSKELETAL: No clubbing, cyanosis, or edema. Gross strength 5/5 distal lower extremities. NEURO: No focal or lateralizing signs. Cranial nerves 2 through 12 grossly within normal limits. PSYCH: Appropriate affect. Alert and oriented to person, place and time. SKIN: Well perfused. Good skin turgor. Psoriasis of the thight ASSESSMENT: 1. Super morbid obesity. 2. Body mass index down from 65.2 to 35.7 3. Status post gastric bypass. 4. Dietary surveillance and counseling. 5. Insulin-dependent diabetes type 2, improved. 6. Panniculitis, status post panniculectomy 7. Psoriasis PLAN: 1. Remove JUSTICE and tape next tuesday. Objective - Vital Signs Vital signs: Vital Signs Temp 98.5 F 04/26/19 08:13 Pulse 84 04/26/19 08:13 Resp 16 04/26/19 08:13 BP 128/84 04/26/19 08:13 Pulse Ox Intake & Output 04/25/19 04/26/19 04/26/19 18:59 06:59 18:59 Weight 87.09 kg
== END | disposition home or self-care (01) ==
LOC: BARWHC3 07:46
PROVIDERS: ATTEND Surgery Plastic and Reconstructive Surgery
DX: E66.01 Morbid (severe) obesity due to excess calories (principal); Z68.44 Body mass index [BMI] 60.0-69.9, adult; Z71.3 Dietary counseling and surveillance; M79.3 Panniculitis, unspecified; L40.9 Psoriasis, unspecified; Z48.817 Encounter for surgical aftercare following surgery on the skin and subcutaneous tissue; Z98.84 Bariatric surgery status
CPT/HCPCS: 99211; 99212

== ENCOUNTER → 2019-05-02 | Outpatient (CLI) | payer BC ==
[2019-05-02 16:15] VITALS: BP 123/85; PULSE 91; RESP 16; TEMP 98; BMI 35.1
--- NOTE | 2019-05-02 17:56 | P.PN ---
Subjective Progress Note Date: 05/02/19 JUSTICE still over 40 mL daily serous. No infection. Dressing changed. Redness improved along thighs. She is tearful. Stitch pulling. Only 2 weeks out from panniculectomy. Binder adjusted. Objective - Vital Signs Vital signs: Vital Signs Temp 98 F 05/02/19 16:12 Pulse 91 05/02/19 16:12 Resp 16 05/02/19 16:12 BP 123/85 05/02/19 16:12 Pulse Ox Intake & Output 05/01/19 05/02/19 05/02/19 18:59 06:59 18:59 Weight 85.729 kg
== END ==
LOC: BARWHC3 15:55
PROVIDERS: ATTEND Surgery Plastic and Reconstructive Surgery
DX: Z48.817 Encounter for surgical aftercare following surgery on the skin and subcutaneous tissue (principal); Z98.890 Other specified postprocedural states
CPT/HCPCS: 99212

== ENCOUNTER → 2019-05-11 | Outpatient (CLI) | payer BC ==
[2019-05-11 13:02] VITALS: BP 155/82; PULSE 93; TEMP 98.6; BMI 35.4
--- NOTE | 2019-05-11 20:01 | P.PN ---
Subjective Progress Note Date: 05/11/19 DATE OF SERVICE: 05/11/2019 CHIEF COMPLAINT: Panniculitis HISTORY OF PRESENT ILLNESS: The patient is a 43-year-old female status post panniculectomy, 7.5 pounds, 04/16/19. She is 3 weeks out. She is tearful. She wants her drains out. She reports outputs of under 25 mL daily. Today she comes in weighing 191 pounds from 189 pounds, 1 week ago. At her present height of 5 feet 1.5 inches, her ideal body weight is 131 pounds. Her body mass index was 65.2. Her highest weight was 350 pounds. She gained 2 pounds from 1 week ago. Her body mass index is reduced to 35.5. Percent excess weight loss is 73 %. Her total weight loss is 159 pounds. PHYSICAL EXAM: VITAL SIGNS: Height 5 foot 1.5 inches, weight 191 pounds. BMI 35.5 Vital Signs Temp 98.6 F 05/11/19 12:58 Pulse 93 05/11/19 12:58 Resp BP 155/82 05/11/19 12:58 Pulse Ox GENERAL: Well-developed female in no acute distress. HEENT: No scleral icterus. Extraocular movements grossly intact. CHEST: Nonlabored respirations with equal bilateral excursions. CARDIOVASCULAR: Regular rate. Distal 2+ pulses. ABDOMEN: Drains discontinued serosanguineous. No signs of infection. New dressings placed. MUSCULOSKELETAL: No clubbing, cyanosis, or edema. NEURO: No focal or lateralizing signs. Cranial nerves 2 through 12 grossly within normal limits. PSYCH: Appropriate affect. Alert and oriented to person, place and time. SKIN: Well perfused. Good skin turgor. Redness improved along thighs from psoriasis. ASSESSMENT: 1. Super morbid obesity. 2. Body mass index down from 65.2 to 35.5 3. Status post gastric bypass. 4. Dietary surveillance and counseling. 5. Insulin-dependent diabetes type 2, improved. 6. Panniculitis, status post panniculectomy PLAN: 1. Patient advised to wear abdominal binder routinely to prevent seroma accumulation. 2. Follow-up in one week. Objective - Vital Signs Vital signs: Vital Signs Temp 98.6 F 05/11/19 12:58 Pulse 93 05/11/19 12:58 Resp BP 155/82 05/11/19 12:58 Pulse Ox Intake & Output 05/11/19 05/11/19 05/12/19 06:59 18:59 06:59 Weight 86.636 kg
== END | disposition home or self-care (01) ==
LOC: BARWHC3 10:00
PROVIDERS: ATTEND Surgery Plastic and Reconstructive Surgery
DX: Z48.817 Encounter for surgical aftercare following surgery on the skin and subcutaneous tissue (principal); E66.01 Morbid (severe) obesity due to excess calories; E11.9 Type 2 diabetes mellitus without complications; Z68.35 Body mass index [BMI] 35.0-35.9, adult; Z98.84 Bariatric surgery status; Z71.3 Dietary counseling and surveillance; Z98.890 Other specified postprocedural states; Z79.4 Long term (current) use of insulin
CPT/HCPCS: 99212

== ENCOUNTER → 2019-05-18 | Outpatient (CLI) | payer BC ==
--- NOTE | 2019-05-18 11:04 | P.PN ---
Subjective Progress Note Date: 05/18/19 DATE OF SERVICE: 05/18/2019 CHIEF COMPLAINT: Panniculitis HISTORY OF PRESENT ILLNESS: The patient is a 43-year-old female status post panniculectomy, 7.5 pounds, 04/16/19. She is 1 month out. She has been noncompliant with medical care. Currently protein intake is 75-80 g the last 2 days. Drains were discontinue 1 week ago as she reports discomfort from the drains. Patient was explicitly told that she is at higher risk for fluid reaccumulation. She presents today with fluid accumulation. Today she comes in weighing 195 pounds from 191 pounds, 1 week ago. At her present height of 5 feet 1.5 inches, her ideal body weight is 131 pounds. Her body mass index was 65.2. Her highest weight was 350 pounds. She gained 4 pounds from 1 week ago. Her body mass index is 36.2. Percent excess weight loss is 71 %. Her total weight loss is 155 pounds. PHYSICAL EXAM: VITAL SIGNS: Height 5 foot 1.5 inches, weight 195 pounds. BMI 36.2 Vital Signs Temp 98.1 F 05/18/19 11:04 Pulse 76 05/18/19 11:04 Resp BP 133/63 05/18/19 11:04 Pulse Ox GENERAL: Well-developed female in no acute distress. HEENT: No scleral icterus. Extraocular movements grossly intact. CHEST: Nonlabored respirations with equal bilateral excursions. CARDIOVASCULAR: Regular rate. Distal 2+ pulses. ABDOMEN: No erythema. Palpable fluid seroma. No signs of infection. MUSCULOSKELETAL: No clubbing, cyanosis, or edema. NEURO: No focal or lateralizing signs. Cranial nerves 2 through 12 grossly within normal limits. PSYCH: Appropriate affect. Alert and oriented to person, place and time. SKIN: Well perfused. Good skin turgor. ASSESSMENT: 1. Super morbid obesity. 2. Body mass index down from 65.2 to 36.2 3. Status post gastric bypass. 4. Dietary surveillance and counseling. 5. Insulin-dependent diabetes type 2, improved. 6. Panniculitis, status post panniculectomy 7. Seroma due to non-compliance PLAN: 1. Recommend fluid drainage of seroma with ultrasound. 2. Patient also advised that she is returning too early to return to work. She insists that she has no financial means. 3. Patient advised to follow up with ultrasound including weekly visits at the bariatric center for abdominal seroma and wound check.
--- NOTE | 2019-05-18 11:06 | P.PN ---
Progress Note - Text Progress Note Date: 05/18/19 To Whom It May Concern: The patient is under my surgical care. She may return to work TuesdayMay 21 with restrictions of 5 pounds lasting for 2 months until 07/17/2019. Regards, Suma Noyola M.D., FACS
[2019-05-18 11:08] VITALS: BP 133/63; PULSE 76; TEMP 98.1; BMI 36.2
== END | disposition home or self-care (01) ==
LOC: BARWHC3 09:57
PROVIDERS: ATTEND Surgery Plastic and Reconstructive Surgery
DX: E66.01 Morbid (severe) obesity due to excess calories (principal); E11.9 Type 2 diabetes mellitus without complications; T14.8XXA Other injury of unspecified body region, initial encounter; Z68.36 Body mass index [BMI] 36.0-36.9, adult; Z91.19 Patient's noncompliance with other medical treatment and regimen; Z98.84 Bariatric surgery status; Z71.3 Dietary counseling and surveillance; Z79.4 Long term (current) use of insulin
CPT/HCPCS: 99212

== ENCOUNTER 2019-05-29 08:59 | Day surgery (SDC) | payer BC ==
[2019-05-29 09:18] VITALS: RESP 18; TEMP 98.2
[2019-05-29 09:30] LABS: Glucose,Whole Blood 123 mg/dL (75-99)
[2019-05-29 10:18] VITALS: BP 121/64; PULSE 74
--- NOTE | 2019-05-29 12:03 | US ---
EXAMINATION TYPE: US guided soft tissue drainage DATE OF EXAM: 05/29/2019 HISTORY: Seroma postop FINDINGS: Maximal barrier technique was utilized. The skin overlying a suitable path to the fluid at the level of the anterior abdominal wall inferiorly within the subcutaneous tissues was localized wi th ultrasound and the overlying skin prepped and draped. Lidocaine was used for local anesthesia. A skin ko made with a scalpel. Access was gained under direct ultrasound guidance to the fluid with a 5 Jamaican catheter over guide needle, the catheter advanced and needle removed. Ultrasound was util ized using sterile technique. A 0.6 L yellow serous fluid returned. Catheter was removed. Hemosta sis achieved. No immediate complication and the patient remained in stable condition. IMPRESSION: STATUS POST ULTRASOUND GUIDED SEROMA DRAINAGE, THIS PROCEDURE WAS PERFORMED BY THE UNDERS IGNED.
== END 2019-05-29 10:25 | disposition home or self-care (01) ==
LOC: RADPROMAIN 08:59
PROVIDERS: ATTEND Surgery Plastic and Reconstructive Surgery
DX: L76.34 Postprocedural seroma of skin and subcutaneous tissue following other procedure (principal)
CPT/HCPCS: 10030; 76942

== ENCOUNTER → 2019-06-06 | Outpatient (CLI) | payer BC ==
[2019-06-06 15:36] VITALS: BP 118/66; PULSE 16; RESP 16; TEMP 98; BMI 36.2
--- NOTE | 2019-06-06 16:08 | P.PN ---
Subjective Progress Note Date: 06/06/19 DATE OF SERVICE: 06/06/2019 CHIEF COMPLAINT: Status post panniculectomy HISTORY OF PRESENT ILLNESS: The patient is a 43-year-old female status post panniculectomy, 7.5 pounds, 04/16/19. She is 6 weeks out. She had her drains removed per her wishes despite medical advise. As a result, she developed a sy mptomatic seroma. She had seroma drainage of 600 mL. She reports asymmetry of the abdomen more along the left from the right. Today she comes in weighing 195 pounds unchanged from 2 weeks ago. At her present height of 5 feet 1.5 inches, her ideal body weight is 131 pounds. Her body mass index was 65.2. Her highest weight was 350 pounds. Her body mass index is 36.2. Percent excess weight loss is 71 %. Her total weight loss is 155 pounds. PHYSICAL EXAM: VITAL SIGNS: Height 5 foot 1.5 inches, weight 195 pounds. BMI 36.2 Vital Signs Temp 98 F 06/06/19 15:30 Pulse 16 L 06/06/19 15:30 Resp 16 06/06/19 15:30 BP 118/66 06/06/19 15:30 Pulse Ox GENERAL: Well-developed female in no acute distress. HEENT: No scleral icterus. Extraocular movements grossly intact. CHEST: Nonlabored respirations with equal bilateral excursions. CARDIOVASCULAR: Regular rate. Distal 2+ pulses. ABDOMEN: No erythema. Palpable fluid seroma. No signs of infection. MUSCULOSKELETAL: No clubbing, cyanosis, or edema. NEURO: No focal or lateralizing signs. Cranial nerves 2 through 12 grossly within normal limits. PSYCH: Appropriate affect. Alert and oriented to person, place and time. SKIN: Well perfused. Good skin turgor. ASSESSMENT: 1. Super morbid obesity. 2. Body mass index down from 65.2 to 36.2 3. Status post gastric bypass. 4. Dietary surveillance and counseling. 5. Insulin-dependent diabetes type 2, improved. 6. Panniculitis, status post panniculectomy 7. Seroma due to non-compliance PLAN: 1. Recommend new abdominal binder 2. Protein intake 90 grams advised for optimal wound healing. 3. Will schedule for seroma drainage as needed Objective - Vital Signs Vital signs: Vital Signs Temp 98 F 06/06/19 15:30 Pulse 16 L 06/06/19 15:30 Resp 16 06/06/19 15:30 BP 118/66 06/06/19 15:30 Pulse Ox Intake & Output 06/05/19 06/06/19 06/06/19 18:59 06:59 18:59 Weight 88.451 kg
== END | disposition home or self-care (01) ==
LOC: BARWHC3 14:53
PROVIDERS: ATTEND Surgery Plastic and Reconstructive Surgery
DX: E66.01 Morbid (severe) obesity due to excess calories (principal); E11.9 Type 2 diabetes mellitus without complications; Z79.4 Long term (current) use of insulin; Z91.19 Patient's noncompliance with other medical treatment and regimen; Z68.36 Body mass index [BMI] 36.0-36.9, adult; Z98.84 Bariatric surgery status; Z71.3 Dietary counseling and surveillance
CPT/HCPCS: 99211

== ENCOUNTER 2019-06-19 12:01 | Day surgery (SDC) | payer BC ==
[2019-06-19 13:11] VITALS: TEMP 97.9
--- NOTE | 2019-06-19 15:19 | US ---
EXAMINATION TYPE: US guided soft tissue drainage DATE OF EXAM: 06/19/2019 HISTORY: Seroma status post anterior abdominal wall surgery FINDINGS: Maximal barrier technique was utilized, hand hygiene obtained with soap and water. The ski n overlying a suitable path to the fluid over the patient's midline and in the infra umbilical locati on was localized with ultrasound and the overlying skin prepped and draped. Lidocaine was used for l ocal anesthesia. A skin ko made with a scalpel. Access was gained under direct ultrasound guidanc e to the fluid with an 18-gauge needle. Ultrasound was utilized using sterile technique. 20 serous f luid returned, sanguinous material also aspirated, second puncture performed and additional 10 cc of dark fluid obtained. Needle was removed. Hemostasis achieved. No immediate complication and the jorge ent remained in stable condition. IMPRESSION: STATUS POST ULTRASOUND GUIDED SEROMA DRAINAGE, THIS PROCEDURE WAS PERFORMED BY THE UNDERS IGNED.
[2019-06-19 16:21] VITALS: BP 117/72; PULSE 80; RESP 16
== END 2019-06-19 14:45 | disposition home or self-care (01) ==
LOC: RADPROMAIN 12:01
PROVIDERS: ATTEND Surgery Plastic and Reconstructive Surgery
DX: L76.34 Postprocedural seroma of skin and subcutaneous tissue following other procedure (principal)
CPT/HCPCS: 10030; 76942

== ENCOUNTER → 2020-04-02 | Outpatient (CLI) | payer BC ==
[2020-04-02 15:26] LABS: HCT 39.1 % (34.0-46.0); HGB 12.9 gm/dL (11.4-16.0); MCH 29.7 pg (25.0-35.0); MCHC 33.1 g/dL (31.0-37.0); MCV 89.8 fL (80.0-100.0); Mean Platelet Volume 7.7; Platelet Count 311 k/uL (150-450); RBC 4.35 m/uL (3.80-5.40); RDW 12.3 % (11.5-15.5); WBC 13.8 k/uL (3.8-10.6)
== END | disposition home or self-care (01) ==
LOC: LABWHC1 14:35
PROVIDERS: ATTEND Obstetrics & Gynecology
DX: N93.9 Abnormal uterine and vaginal bleeding, unspecified (principal)
CPT/HCPCS: 36415; 84439; 84443; 85027

== ENCOUNTER → 2022-01-21 | Outpatient (CLI) | payer BC ==
[2022-01-21 23:36] LABS: Basophils # (A) 0.06 X 10*3/uL (0.00-0.10); Basophils % (A) 0.5 %; Eosinophils # (A) 0.39 X 10*3/uL (0.04-0.35); Eosinophils % (A) 3.2 %; HCT 39.8 % (37.2-46.3); HGB 12.9 g/dL (12.0-15.0); Immature Grans, Automated 0.4 %; Lymphocytes # (A) 3.75 X 10*3/uL (0.90-5.00); Lymphocytes % (A) 30.8 %; MCH 27.7 pg (27.0-32.0); MCHC 32.4 g/dL (32.0-37.0); MCV 85.6 fL (80.0-97.0); Mean Platelet Volume 10.7 fL (9.5-12.2); Monocytes # (A) 0.96 X 10*3/uL (0.20-1.00); Monocytes % (A) 7.9 %; NRBC Per 100 WBC 0 /100 WBCS (0.0-0.0); Neutrophils # (A) 6.96 X 10*3/uL (1.80-7.70); Neutrophils % (A) 57.2 %; Platelet Count 329 X 10*3/uL (140-440); RBC 4.65 X 10*6/uL (4.10-5.20); RDW 13.1 % (11.5-14.5); WBC 12.17 X 10*3/uL (4.50-10.00)
== END | disposition home or self-care (01) ==
LOC: LABPAT 15:47
PROVIDERS: ATTEND Obstetrics & Gynecology
DX: Z01.812 Encounter for preprocedural laboratory examination (principal); N92.0 Excessive and frequent menstruation with regular cycle; E11.9 Type 2 diabetes mellitus without complications
CPT/HCPCS: 85025; 93005

== ENCOUNTER 2022-02-02 08:14 | Day surgery (SDC) | payer BC ==
[2022-01-27 14:45] VITALS: BMI 36.8
[~2022-02-02 08:14] MED LIST changes: -DEXAMETHASONE SOD PHOSPHATE 10 MG/ML 1 ML VIAL IV ONE; +DEXAMETHASONE SOD PHOSPHATE 4 MG/ML 1 ML VIAL IV ONE; +LACTATED RINGERS 1,000 ML IV SCH; -LIDOCAINE 1% 20 ML VIAL (10MG/ML) FOR IV START INTRADERMA PRN; +Pre Op ABX Message 1 EACH MISC MISCELLANE ONE; -SCOPOLAMINE 1.5MG/72HR PATCH TRANSDERM ONE
[2022-02-02] MEDS ORDERED: LACTATED RINGERS 1,000 ML IV ONE (08:46)
[2022-02-02 09:01] LABS: Glucose,Whole Blood 104 mg/dL (70-110)
[2022-02-02] MEDS ORDERED: METOPROLOL TARTRATE 5 MG/5 ML VIAL IVP ONE (09:10)
[2022-02-02] MEDS ORDERED: MIDAZOLAM 2 MG/2 ML VIAL ONE (09:10)
[2022-02-02] MEDS ORDERED: fentaNYL (PF) 50 MCG/ML 2 ML AMP ONE (09:10)
[2022-02-02] MEDS ORDERED: KETOROLAC 15 MG/ML 1 ML VIAL ONE (09:10)
[2022-02-02] MEDS ORDERED: PROPOFOL 10 MG/ML 20 ML VIAL IV ONE (09:10)
[2022-02-02] MEDS ORDERED: LIDOCAINE 2% INJ 20 MG/ML (2 ML VIAL) ONE (09:10)
[2022-02-02] MEDS ORDERED: SILVER NITRATE APPLICATOR 1 EACH STICK..EA. TOPICAL ONE (09:33)
[2022-02-02 09:47] VITALS: TEMP 97
--- NOTE | 2022-02-02 10:11 | P.OP ---
Date of Procedure: 02/02/22 Preoperative Diagnosis: Menorrhagia Postoperative Diagnosis: Same Procedure(s) Performed: Hysteroscopy, NovaSure endometrial ablation Anesthesia: ARIANA Surgeon: Suma Brito Estimated Blood Loss (ml): 20 IV fluids (ml): 300 Urine output (ml): 20 Pathology: none sent Condition: stable Operative Findings: Essentially normal-appearing intrauterine cavity Description of Procedure: Patient is brought to the operating room where general anesthesia was administered without difficulty. She's placed in the dorsal lithotomy position. The cervix, vagina, perineal bodies are all prepped and draped in the usual sterile fashion. The appropriate timeout is performed to assure proper patient and procedural identification. The bladder is drained for approximately 20 mL of clear yellow urine. Examination under anesthesia reveals a small mobile anteverted uterus. Weighted speculum was placed into the vagina. Anterior lip of the cervix grasped with a double-tooth tenaculum. Uterus sounds to a depth of 9 cm in the anteverted position. Cervix was gently and systematically dilated using Hanks dilators. The hysteroscope was placed, fluid is infused, and the cavity is inspected and noted to be normal with no unusual polyps, fibroids or defects. Hysteroscope was removed. NovaSure wand is then placed and seated properly. Cervical length is 3 cm therefore a uterine length of 6 cm is chosen, with 3.2 cm. The machine is properly calibrated and enabled. For 44 seconds and a power of 106 W the procedure is carried out. The wand is then reduced and removed. Hysteroscope was once again placed, the cavity appears to be uniformly blanched. Hysteroscope was removed. Cervix is clean and dry. All sponge needle and enhancement counts are correct. Patient is brought back to the recovery room in excellent condition with stable vital signs including a pulse of 82, blood pressure 120/72. Patient will follow-up with me in the office in 2 weeks. She is given a dose of Toradol prior to leaving the operative suite.
[2022-02-02 10:41] VITALS: RESP 20
[2022-02-02 10:49] VITALS: BP 142/82; PULSE 80
== END 2022-02-02 11:02 | disposition home or self-care (01) ==
LOC: OR 08:14
PROVIDERS: ATTEND Obstetrics & Gynecology
DX: N92.0 Excessive and frequent menstruation with regular cycle (principal); E11.9 Type 2 diabetes mellitus without complications; Z79.84 Long term (current) use of oral hypoglycemic drugs; Z98.891 History of uterine scar from previous surgery; Z98.890 Other specified postprocedural states; Z79.899 Other long term (current) drug therapy
CPT/HCPCS: 58563; 81025; J2250; J1100; J2405; J3010; J1885; J2704; J2001

== ENCOUNTER → 2023-08-03 | Outpatient (CLI) | payer BC ==
--- NOTE | 2023-08-03 16:45 | P.HPBAR ---
Bariatric H&P - History & Physicial H&P Date: 08/03/23 History & Physicial: Visit/CC: Patient initial contact: Initial weight: 138.799 kg Initial weight in pounds: Height: Initial BMI: Last weight: Current weight: Current weight in pounds: Current BMI: [place] body weight (based on NIH guidelines): Excess body weight loss: The patient is a 47 year-old F who presents for Bariatric Assessment. She was lost to follow up for 4 years. She has troubles with swallowing. Has burning in the mouth. Check for labs. SHe is still loosing weight. SHe is on ozempic. She was 170 pounds due to no appetite. Recommend EGD. Recommend labs. Past Medical History Past Medical History: Diabetes Mellitus, Osteoarthritis (OA), Skin Disorder Additional Past Medical History / Comment(s): migraines, eczema, anemia, History of Any Multi-Drug Resistant Organisms: None Reported, MRSA Year Discovered:: 06/27/17 MDRO Source:: [facility] [place] Past Surgical History: Bariatric Surgery, Section Additional Past Surgical History / Comment(s): LAP BAND 2003, LAP BAND REMOVED, gastric bypass 09/17/16 panniculectomy 04-16-19 Past Anesthesia/Blood Transfusion Reactions: No Reported Reaction Additional Past Anesthesia/Blood Transfusion Reaction / Comm: no hx blood transfusion Smoking Status: Never smoker - Past Family History Father Family Medical History: No Reported History Mother Family Medical History: No Reported History Brother(s) Family Medical History: No Reported History Sister(s) Family Medical History: No Reported History Son(s) Family Medical History: No Reported History Bariatric Checklist Checklist: Plan: Checklist: EGD: 1. Hiatal hernia: 2. H. Pylori: HgbA1c: Vitamin D: Smoking: Never smoker Primary care physician referral: b[facility]on Psychiatry clearance: Cardiology clearance: Sleep study: Diet journal: VTE risk score: VTE risk level: Rehab needs at discharge:
[2023-08-03 17:26] VITALS: BP 102/71; PULSE 69; RESP 16; TEMP 98.1; BMI 34.0
== END ==
LOC: BARWHC3 15:29
PROVIDERS: ATTEND Surgery Plastic and Reconstructive Surgery
DX: E66.01 Morbid (severe) obesity due to excess calories (principal); Z53.9 Procedure and treatment not carried out, unspecified reason
CPT/HCPCS: 99211

== ENCOUNTER → 2023-08-08 | Outpatient (CLI) | payer BC ==
[2023-08-08 14:48] LABS: INR 0.9 (<1.2); Partial Thromboplastin Time 23.5 sec (22.0-30.0); Prothrombin Time 10.3 sec (10.0-12.5)
[2023-08-08 18:46] LABS: HCT 41.8 % (37.2-46.3); MCH 24.9 pg (27.0-32.0); MCHC 31.1 g/dL (32.0-37.0); MCV 80.1 FL (80.0-97.0); Mean Platelet Volume 10.5 FL (9.5-12.2); NRBC Per 100 WBC 0 X 10*3/uL (0.00-0.01); Platelet Count 382 X 10*3/uL (140-440); RBC 5.22 X 10*6/uL (4.10-5.20); RDW 15.1 % (11.5-14.5); WBC 11.95 X 10*3/uL (4.50-10.00)
[2023-08-08 23:09] LABS: Prealbumin 24.9 mg/dL (18.0-42.0)
[2023-08-08 23:16] LABS: % Iron Saturation 6.42 (12.00-45.00); ALT 14 U/L (8-44); AST 21 U/L (13-35); Albumin 4.4 g/dL (3.8-4.9); Albumin/Globulin Ratio 1.52 Ratio (1.60-3.17); Alkaline Phosphatase 92 U/L (41-126); BUN/Creat Ratio 15.78 Ratio (12.00-20.00); Blood Urea Nitrogen 14.2 mg/dL (9.0-27.0); Calcium 9.7 mg/dL (8.7-10.3); Carbon Dioxide 23.6 mmol/L (21.6-31.8); Chloride 100 mmol/L (96-109); Chol/HDL Ratio 2.06 Ratio; Ferritin 10.4 ng/mL (10.0-291.0); Globulin 2.9 g/dL (1.6-3.3); Glucose 78 mg/dL (70-110); Iron 29 UG/DL (50-170); LDL Cholesterol,Calculated 67.6 mg/dL (0.0-131.0); Magnesium 1.8 mg/dL (1.5-2.4); Phosphorus 3.5 mg/dL (2.4-5.1); Potassium 4.4 mmol/L (3.5-5.5); Sodium 140 mmol/L (135-145); Total Bilirubin <0.2 mg/dL (0.3-1.2); Total Iron Binding Capacity 452 UG/DL (228-460); Total Protein 7.3 g/dL (6.2-8.2)
[2023-08-09 11:12] LABS: Zinc, Serum 83 ug/dL (60-130)
[2023-08-10 07:57] LABS: Vit B1(Thiamine) 53 ug/L (38-122)
[2023-08-10 11:21] LABS: Vitamin A 87 ug/dL (38-106)
== END | disposition home or self-care (01) ==
LOC: LABWHC1 13:05
PROVIDERS: ATTEND Surgery Plastic and Reconstructive Surgery
DX: E66.01 Morbid (severe) obesity due to excess calories (principal); E89.1 Postprocedural hypoinsulinemia; D50.8 Other iron deficiency anemias; K91.2 Postsurgical malabsorption, not elsewhere classified; E44.0 Moderate protein-calorie malnutrition; E44.1 Mild protein-calorie malnutrition; E45 Retarded development following protein-calorie malnutrition; E46 Unspecified protein-calorie malnutrition; E55.9 Vitamin D deficiency, unspecified; K74.1 Hepatic sclerosis; N19 Unspecified kidney failure; T56.894A Toxic effect of other metals, undetermined, initial encounter; K50.90 Crohn's disease, unspecified, without complications
CPT/HCPCS: 36415; 80053; 80061; 82306; 82525; 82607; 82728; 82746; 83036; 83540; 83550; 83735; 83970; 84100; 84134; 84255; 84425; 84443; 84590; 84630; 85027; 85610; 85730

== ENCOUNTER → 2023-08-11 | Day surgery (SDC) | payer BC ==
[~2023-08-11] MED LIST changes: -DEXAMETHASONE SOD PHOSPHATE 4 MG/ML 1 ML VIAL IV ONE; -HYDROmorphone 0.5 MG/0.5 ML SYRINGE IVP PRN; -LACTATED RINGERS 1,000 ML IV SCH; +LIDOCAINE 1% INJ 10MG/ML (20 ML MDV) ONE; -ONDANSETRON 4 MG/2 ML VIAL IVP ONE; +PROPOFOL 10 MG/ML 20 ML VIAL IV ONE; -Pre Op ABX Message 1 EACH MISC MISCELLANE ONE
[2023-08-11] MEDS: LACTATED RINGERS 1,000 ML IV SCH (07:34)
--- NOTE | 2023-08-11 07:42 | P.GSHP ---
History of Present Illness H&P Date: 08/11/23 CHIEF COMPLAINT: GERD HISTORY OF PRESENT ILLNESS: The patient is a 47-year-old female who presents reports gastroesophageal reflux disease. Upper endoscopy was offered for further evaluation and management. PAST MEDICAL HISTORY: Please see list. PAST SURGICAL HISTORY: Please see list. MEDICATIONS: Please see list. ALLERGIES: Please see list. SOCIAL HISTORY: No illicit drug use FAMILY HISTORY: No reports of Crohn disease or ulcerative colitis. REVIEW OF ORGAN SYSTEMS: CONSTITUTIONAL: No reports of fevers or chills. GI: Denies any blood in stools or constipation. PHYSICAL EXAM: VITAL SIGNS: Stable GENERAL: Well-developed and pleasant in no acute distress. HEENT: No scleral icterus. Extraocular movements grossly intact. Moist buccal mucosa. NECK: Supple without lymphadenopathy. CHEST: Unlabored respirations. Equal bilateral excursions. CARDIOVASCULAR: Regular rate and rhythm. Distal 2+ pulses. ABDOMEN: Soft, nondistended. MUSCULOSKELETAL: No clubbing, cyanosis, or edema. ASSESSMENT: 1. Gastroesophageal reflux disease PLAN: 1. Recommend proceeding with an upper endoscopy Past Medical History Past Medical History: Diabetes Mellitus, Hyperlipidemia, Osteoarthritis (OA), Skin Disorder Additional Past Medical History / Comment(s): migraines, eczema, iron deficient anemia, dysphagia recently, N/V recently History of Any Multi-Drug Resistant Organisms: None Reported, MRSA Date of last positivie culture/infection: 06/27/17 MDRO Source:: R [place] Past Surgical History: Bariatric Surgery, Section, Uterine Ablation Additional Past Surgical History / Comment(s): LAP BAND 2002, LAP BAND REMOVED, gastric bypass 09/17/16 panniculectomy 04-16-19 Past Anesthesia/Blood Transfusion Reactions: No Reported Reaction Additional Past Anesthesia/Blood Transfusion Reaction / Comment(s): no hx blood transfusion Smoking Status: Never smoker - Past Family History Father Family Medical History: No Reported History Mother Family Medical History: No Reported History Brother(s) Family Medical History: No Reported History Sister(s) Family Medical History: No Reported History Son(s) Family Medical History: No Reported History Medications and Allergies Home Medications Medication Instructions Recorded Confirmed Type Biotin 5 mg PO HS 01/06/16 08/09/23 History Escitalopram [Lexapro] 10 mg PO HS 01/06/16 08/09/23 History metFORMIN HCL [Glucophage] 1,000 mg PO BID 07/06/17 08/09/23 History Atorvastatin [Lipitor] 10 mg PO HS 01/27/22 08/09/23 History Empagliflozin [Jardiance] 25 mg PO DAILY 01/27/22 08/09/23 History Semaglutide [Ozempic] 0.5 injection SQ SA 08/04/23 08/09/23 History Cholecalciferol [Vitamin D3 (25 25 mcg PO DAILY 08/09/23 08/09/23 History Mcg = 1000 Iu)] Psyllium Husk [Fiber Capsule] 0.4 gm PO DAILY 08/09/23 08/09/23 History Triamterene/Hydrochlorothiazid 1 each PO DAILY 08/09/23 08/09/23 History [Triamterene-Hctz 37.5-25 mg Tb] Vitamin A(Unknown Dose) 1 tab PO DAILY 08/09/23 History Allergies Allergy/AdvReac Type Severity Reaction Status Date / Time No Known Allergies Allergy Verified 08/09/23 11:21
[2023-08-11] MEDS: FAMOTIDINE 20 MG/2 ML VIAL IVP ONE (07:58)
[2023-08-11 08:04] VITALS: RESP 16; TEMP 98
[2023-08-11 08:16] LABS: Glucose,Whole Blood 106 mg/dL (70-110)
--- NOTE | 2023-08-11 08:39 | P.PCN ---
Date of Procedure: 08/11/23 Description of Procedure: PREOPERATIVE DIAGNOSIS: Dysphagia. History of gastric bypass POSTOPERATIVE DIAGNOSIS: Dysphagia. Diaphragmatic hiatal hernia Gastrojejunal stricture without chronic ulcer without perforation OPERATION: Esophagogastrojejunoscopy with balloon dilatation from 15 to 20 mm for gastric stricture SURGEON: Suma Noyola MD ANESTHESIA: MAC. INDICATIONS: The patient is a 47-year-old female who presents with a history of dysphagia. Benefits and risks of the procedure were described. Informed consent was obtained. DESCRIPTION: The patient was brought into the endoscopy suite and laid in the left lateral decubitus position. After a timeout was confirmed, the procedure was initiated. An Olympus gastroscope was passed along the posterior oropharynx down to the distal esophagus where the squamocolumnar junction was unremarkable. The gastric pouch was entered. A gastrojejunal stricture of 15 mm was found as the adult gastroscope was 9.5 mm in size. A Regaalo balloon dilator was placed through the scope. The scope was reentered for balloon dilation of the gastrojejunal anastomosis. Final insufflation from 15 to 20 mm was performed with a total of 2 minutes. The scope was advanced up to 60 cm from the incisors into the Donald limb. The mucosa of the gastrojejunal anastomosis was intact. No chronic gastrojejunal marginal ulcer was encountered. No full-thickness injury was encountered. The GI tract was desufflated. The patient tolerated the procedure well. FINDINGS: Squamocolumnar junction unremarkable at 33 cm. Stricture of approximately 15 mm encountered Diaphragmatic hiatal hernia 3 cm Diaphragmatic hiatus 36 cm from incisors No chronic gastrojejunal ulceration encountered. Successful balloon dilatation to 20 mm. Gastric pouch 6 cm RECOMMENDATIONS: May benefit from diaphragmatic hiatal hernia repair Plan - Discharge Summary Discharge Rx Participant: No New Discharge Prescriptions: Continue Biotin 5 mg PO HS Escitalopram [Lexapro] 10 mg PO HS metFORMIN HCL [Glucophage] 1,000 mg PO BID Atorvastatin [Lipitor] 10 mg PO HS Empagliflozin [Jardiance] 25 mg PO DAILY Vitamin A(Unknown Dose) 1 tab PO DAILY Semaglutide [Ozempic] 0.5 injection SQ SA Triamterene/Hydrochlorothiazid [Triamterene-Hctz 37.5-25 mg Tb] 1 each PO DAILY Cholecalciferol [Vitamin D3 (25 Mcg = 1000 Iu)] 25 mcg PO DAILY Psyllium Husk [Fiber Capsule] 0.4 gm PO DAILY Discharge Medication List Biotin 5 mg PO HS 01/06/16 [History] Escitalopram [Lexapro] 10 mg PO HS 01/06/16 [History] metFORMIN HCL [Glucophage] 1,000 mg PO BID 07/06/17 [History] Atorvastatin [Lipitor] 10 mg PO HS 01/27/22 [History] Empagliflozin [Jardiance] 25 mg PO DAILY 01/27/22 [History] Semaglutide [Ozempic] 0.5 injection SQ SA 08/04/23 [History] Cholecalciferol [Vitamin D3 (25 Mcg = 1000 Iu)] 25 mcg PO DAILY 08/09/23 [History] Psyllium Husk [Fiber Capsule] 0.4 gm PO DAILY 08/09/23 [History] Triamterene/Hydrochlorothiazid [Triamterene-Hctz 37.5-25 mg Tb] 1 each PO DAILY 08/09/23 [History] Vitamin A(Unknown Dose) 1 tab PO DAILY 08/09/23 [History] [facility] [place] [place] [facility] [place] [facility]23 2:00 pm Patient Instructions/Handouts: Esophageal Dilation (DC) Activity/Diet/Wound Care/Special Instructions: Warm beverages advised prior to solid food Discharge Disposition: HOME SELF-CARE
[2023-08-11 08:41] LABS: Glucose,Whole Blood 101 mg/dL (70-110)
[2023-08-11 09:19] VITALS: BP 111/65; PULSE 81
== END | disposition home or self-care (01) ==
LOC: ORWHC2ENDO 07:21
PROVIDERS: ATTEND Surgery Plastic and Reconstructive Surgery
DX: K22.2 Esophageal obstruction (principal); K21.9 Gastro-esophageal reflux disease without esophagitis; K44.9 Diaphragmatic hernia without obstruction or gangrene; E11.9 Type 2 diabetes mellitus without complications; M19.90 Unspecified osteoarthritis, unspecified site; E78.5 Hyperlipidemia, unspecified; Z98.84 Bariatric surgery status; Z79.84 Long term (current) use of oral hypoglycemic drugs; Z79.899 Other long term (current) drug therapy; Z98.891 History of uterine scar from previous surgery; Z98.890 Other specified postprocedural states
CPT/HCPCS: 81025; 43249; J2001; J3490; J2704; C1726

== ENCOUNTER → 2023-08-31 | Outpatient (CLI) | payer BC ==
--- NOTE | 2023-08-31 15:28 | P.BASOAP ---
Subjective Progress Note Date: 08/31/23 She has hiatal hernia. Needs barium swallow. Needs hiatal hernia repair due to dysphagia and epigastric pain and symptomatic. 2 week protein, Objective - Vital Signs Vital signs: Vital Signs Temp 98.1 F 08/31/23 15:08 Pulse 91 08/31/23 15:08 Resp BP 141/83 08/31/23 15:08 Pulse Ox FiO2 Intake & Output 08/30/23 08/31/23 08/31/23 18:59 06:59 18:59 Weight 81.647 kg Assessment/Plan Plan: Date: 08/31/23 Initial Weight: 89.811 kg Initial BMI: 36.8 Current Weight: 81.647 kg Current BMI: 33.4 Type of Surgery: Total Volume in Band: 0 Previous Volume: Volume Removed: Volume Added: Band Size:
[2023-08-31 15:33] VITALS: BP 141/83; PULSE 91; TEMP 98.1; BMI 33.4
== END ==
LOC: BARWHC3 13:42
PROVIDERS: ATTEND Surgery Plastic and Reconstructive Surgery
DX: E66.01 Morbid (severe) obesity due to excess calories (principal); K44.9 Diaphragmatic hernia without obstruction or gangrene; R13.10 Dysphagia, unspecified; R10.13 Epigastric pain; Z86.14 Personal history of Methicillin resistant Staphylococcus aureus infection; Z68.33 Body mass index [BMI] 33.0-33.9, adult
CPT/HCPCS: 99211

== ENCOUNTER → 2023-08-31 | Outpatient (CLI) | payer BC | END | disposition home or self-care (01) | LOC: LABPAT 15:42 | PROVIDERS: ATTEND Surgery Plastic and Reconstructive Surgery | DX: Z01.818 Encounter for other preprocedural examination (principal); R94.31 Abnormal electrocardiogram [ECG] [EKG] | CPT/HCPCS: 93005 ==

== ENCOUNTER → 2023-09-05 | Outpatient (CLI) | payer BC ==
--- NOTE | 2023-09-05 08:40 | FL ---
ESOPHOGRAM. HISTORY: Dysphagia Esophagram was performed per the air contrast technique. The patient swallowed barium and effervesce nt crystals without difficulty or delay. Esophageal peristalsis and motility appear to be within normal limits. There is no evidence for filling defect, mass or diverticulum. No hiatal hernia seen. Subsequently single contrast cervical esophagram was performed which fails demonstrate evidence for a spiration penetration or mass. IMPRESSION: Unremarkable study.
== END | disposition home or self-care (01) ==
LOC: RADUSWWP 07:51
PROVIDERS: ATTEND Surgery Plastic and Reconstructive Surgery
DX: R13.10 Dysphagia, unspecified (principal)
CPT/HCPCS: 74220

== ENCOUNTER 2023-12-07 14:22 | Emergency (ER) | payer BC ==
[2023-12-07 14:50] VITALS: RESP 18; TEMP 98.6
--- NOTE | 2023-12-07 15:31 | ED ---
Headache HPI - General Chief Complaint: Headache Stated Complaint: headache Time Seen by Provider: 12/07/23 14:40 Source: patient, RN notes reviewed Mode of arrival: ambulatory Limitations: no limitations - History of Present Illness Initial Comments: This is a 48-year-old female presents emergency department chief complaint of a migraine headache over the past 4 days. She states that these symptoms are similar to headaches as compared to previous however the symptoms have persisted longer than her previous headaches. She is attempted use Tylenol, Motrin, Excedrin with no relief. She is also experienced intermittent blurry vision that is a similar symptom that which she has had previously. She endorses intermittent nausea as well with no episodes of vomiting. Does not take prophylactic medication for migraines and does not have abortive therapy either. Denies previous imaging of her head due to migraines. Denies neurological changes. - Related Data Home Medications Medication Instructions Recorded Confirmed Biotin 5 mg PO HS 01/06/16 08/31/23 Escitalopram [Lexapro] 10 mg PO HS 01/06/16 08/31/23 metFORMIN HCL [Glucophage] 1,000 mg PO BID 07/06/17 08/31/23 Atorvastatin [Lipitor] 10 mg PO HS 01/27/22 08/31/23 Empagliflozin [Jardiance] 25 mg PO DAILY 01/27/22 08/31/23 Semaglutide [Ozempic] 0.5 injection SQ SA 08/04/23 08/31/23 Cholecalciferol [Vitamin D3 (25 25 mcg PO DAILY 08/09/23 08/31/23 Mcg = 1000 Iu)] Psyllium Husk [Fiber Capsule] 0.4 gm PO DAILY 08/09/23 08/31/23 Triamterene/Hydrochlorothiazid 1 each PO DAILY 08/09/23 08/31/23 [Triamterene-Hctz 37.5-25 mg Tb] Vitamin A(Unknown Dose) 1 tab PO DAILY 08/09/23 08/31/23 Previous Rx's Medication Instructions Recorded Ketorolac [Toradol] 10 mg PO Q8HR PRN #15 tab 12/07/23 Allergies Allergy/AdvReac Type Severity Reaction Status Date / Time No Known Allergies Allergy Verified 08/11/23 07:43 Review of Systems ROS Statement: Those systems with pertinent positive or pertinent negative responses have been documented in the HPI. ROS Other: All systems not noted in ROS Statement are negative. Past Medical History Past Medical History: Diabetes Mellitus, Osteoarthritis (OA), Skin Disorder Additional Past Medical History / Comment(s): migraines, eczema, anemia, History of Any Multi-Drug Resistant Organisms: None Reported, MRSA Date of last positivie culture/infection: 06/27/17 MDRO Source:: R BUTTOCK Past Surgical History: Bariatric Surgery, Section Additional Past Surgical History / Comment(s): LAP BAND 2003, LAP BAND REMOVED, gastric bypass 09/17/16 panniculectomy 04-16-19 Past Anesthesia/Blood Transfusion Reactions: No Reported Reaction Additional Past Anesthesia/Blood Transfusion Reaction / Comment(s): no hx blood transfusion Past Psychological History: No Psychological Hx Reported Smoking Status: Never smoker Past Alcohol Use History: None Reported Past Drug Use History: None Reported - Past Family History Father Family Medical History: No Reported History Mother Family Medical History: No Reported History Brother(s) Family Medical History: No Reported History Sister(s) Family Medical History: No Reported History Son(s) Family Medical History: No Reported History General Exam Limitations: no limitations General appearance: alert, in no apparent distress Head exam: Present: atraumatic, normocephalic, normal inspection Eye exam: Present: normal appearance, PERRL, EOMI. Absent: scleral icterus, conjunctival injection, periorbital swelling ENT exam: Present: normal exam, mucous membranes moist Neck exam: Present: normal inspection. Absent: tenderness, meningismus, lymphadenopathy Respiratory exam: Present: normal lung sounds bilaterally. Absent: respiratory distress, wheezes, rales, rhonchi, stridor Cardiovascular Exam: Present: regular rate, normal rhythm, normal heart sounds. Absent: systolic murmur, diastolic murmur, rubs, gallop, clicks GI/Abdominal exam: Present: soft, normal bowel sounds. Absent: distended, tenderness, guarding, rebound, rigid Extremities exam: Present: normal inspection, full ROM, normal capillary refill. Absent: tenderness, pedal edema, joint swelling, calf tenderness Back exam: Present: normal inspection Neurological exam: Present: alert, oriented X3, CN II-XII intact Psychiatric exam: Present: normal affect, normal mood Skin exam: Present: warm, dry, intact, normal color. Absent: rash Course Vital Signs 12/07/23 12/07/23 14:47 16:57 Temperature 98.6 F Pulse Rate 93 94 Respiratory 18 18 Rate Blood Pressure 125/83 124/84 O2 Sat by Pulse 97 97 Oximetry Medical Decision Making - Medical Decision Making Was pt. sent in by a medical professional or institution (, MARILEE, SHARED SERVICES MANAGER, urgent care, hospital, or halfway...) When possible be specific @ -[No] Did you speak to anyone other than the patient for history (EMS, parent, family, police, friend...)? What history was obtained from this source @ -[No] Did you review nursing and triage notes (agree or disagree)? Why? @ -[I reviewed and agree with nursing and triage notes] Were old charts reviewed (outside hosp., previous admission, EMS record, old EKG, old radiological studies, urgent care reports/EKG's, halfway records)? Report findings @ -[No old charts were reviewed] Differential Diagnosis (chest pain, altered mental status, abdominal pain women, abdominal pain men, vaginal bleeding, weakness, fever, dyspnea, syncope, headache, dizziness, GI bleed, back pain, seizure, CVA, palpatations, mental health, musculoskeletal)? @ -Differential Headache: Migraine, tension, cluster, carbon monoxide, central venous thrombosis, pension karma temporal arteritis, acute closure glaucoma, intercranial hemorrhage, mastoiditis, sinusitis, head injury, this is not meant to be an all-inclusive list. EKG interpreted by me (3pts min.). @ -None X-rays interpreted by me (1pt min.). @ -[None done] CT interpreted by me (1pt min.). @ -CT brain without contrast no acute intracranial abnormality noted. U/S interpreted by me (1pt. min.). @ -[None done] What testing was considered but not performed or refused? (CT, X-rays, U/S, labs)? Why? @ -[None] What meds were considered but not given or refused? Why? @ -[None] Did you discuss the management of the patient with other professionals (professionals i.e. MARILEE Bhakta, SHARED SERVICES MANAGER, lab, RT, psych nurse, social work program coordinator, jar capper, teacher, animal park code enforcement officer, manager rn case)? Give summary @ -[No] Was smoking cessation discussed for >3mins.? @ -[No] Was critical care preformed (if so, how long)? @ -[No] Were there social determinants of health that impacted care today? How? (Homelessness, low income, unemployed, alcoholism, drug addiction, transportation, low edu. Level, literacy, decrease access to med. care, [facility], rehab)? @ -[No] Was there de-escalation of care discussed even if they declined (Discuss DNR or withdrawal of care, Hospice)? DNR status @ -[No] What co-morbidities impacted this encounter? (DM, HTN, Smoking, COPD, CAD, Cancer, CVA, ARF, Chemo, Hep., AIDS, mental health diagnosis, sleep apnea, morbid obesity)? @ -[None] Was patient admitted / discharged? Hospital course, mention meds given and route, prescriptions, significant lab abnormalities, going to OR and other p ertinent info. @ -[hospital course] Undiagnosed new problem with uncertain prognosis? @ -[No] Drug Therapy requiring intensive monitoring for toxicity (Heparin, Nitro, Insulin, Cardizem)? @ -[No] Were any procedures done? @ -[No] Diagnosis/symptom? @ -[default] Acute, or Chronic, or Acute on Chronic? @ -[default] Uncomplicated (without systemic symptoms) or Complicated (systemic symptoms)? @ -[default] Side effects of treatment? @ -[No] Exacerbation, Progression, or Severe Exacerbation? @ -[No] Poses a threat to life or bodily function? How? (Chest pain, [place], [place], pneumonia, PE, COPD, DKA, ARF, appy, cholecystitis, CVA, Diverticulitis, Homicidal, Suicidal, threat to staff... and all critical care pts) @ -[No] Disposition Clinical Impression: Migraine headache Disposition: HOME SELF-CARE Condition: Good Instructions (If sedation given, give patient instructions): Migraine Headache (ED) Additional Instructions: Return to the emergency department for any new or worsening symptoms. Take medication as needed for headache relief. Prescriptions: Ketorolac [Toradol] 10 mg PO Q8HR PRN #15 tab PRN Reason: Pain Is patient prescribed a controlled substance at d/c from ED?: No Referrals: Brenden Alvarez [Primary Care Provider] - 1-2 days Time of Disposition: 16:42
[2023-12-07] MEDS: SODIUM CHLORIDE 0.9% 1,000 ML IV STA (16:00)
[2023-12-07] MEDS: ACETAMINOPHEN TAB 500 MG TAB PO STA (16:01)
[2023-12-07] MEDS: diphenhydrAMINE 50 MG/ML 1 ML VIAL IVP STA (16:02)
--- NOTE | 2023-12-07 16:05 | CT ---
EXAMINATION TYPE: CT brain wo con CT DLP: 1102 mGycm, Automated exposure control for dose reduction was used. DATE OF EXAM: 12/07/2023 3:58 PM COMPARISON: None. CLINICAL INDICATION:Female, 48 years old with history of persistent VELEZ, headache TECHNIQUE: Brain: Axial CT images of the brain were obtained with coronal and sagittal reformats created and rev iewed. Contrast used: None. Oral contrast used: None. FINDINGS: Brain: Extra-axial spaces: No abnormal extra-axial fluid collections. Ventricular system: Within normal limits Cerebral parenchyma: No acute intraparenchymal hemorrhage or mass effect. The angel-white junction is well differentiated. Cerebellum: Unremarkable. Mass effect: No evidence of midline shift. Intracranial vasculature: Atherosclerotic calcifications of the intracranial vessels. Soft tissues: Normal. Calvarium/osseous structures: No depressed skull fracture. Paranasal sinuses and mastoid air cells: Mild scattered paranasal sinus disease. Visualized orbits: Orbital contents are intact. IMPRESSION: No acute intracranial process.
[2023-12-07] MEDS: KETOROLAC 15 MG/ML 1 ML VIAL IVP STA (16:11)
[2023-12-07 17:02] VITALS: BP 124/84; PULSE 94
== END 2023-12-07 17:02 | disposition home or self-care (01) ==
LOC: EC 14:22
DX: G43.909 Migraine, unspecified, not intractable, without status migrainosus (principal)
CPT/HCPCS: 70450; 99284; 96374; 96375; 96361; J1200; J1885

== ENCOUNTER → 2024-03-14 | Outpatient (CLI) | payer BC ==
[2024-03-14 17:04] VITALS: BP 133/81; PULSE 89; RESP 16; TEMP 98.3; BMI 31.9
--- NOTE | 2024-03-14 17:42 | P.BASOAP ---
Subjective Progress Note Date: 03/14/24 She has troubles with swallowing still. Had dilation with some relief. Has uppper esophageal stenosis. Rigid dilation and balloon. She has chronic pain. Esophagram reviewed. REcommend EGD and both dilations. Hold surgery. Objective - Vital Signs Vital signs: Vital Signs Temp 98.3 F 03/14/24 16:58 Pulse 89 03/14/24 16:58 Resp 16 03/14/24 16:58 BP 133/81 03/14/24 16:58 Pulse Ox FiO2 Intake & Output 03/13/24 03/14/24 03/14/24 18:59 06:59 18:59 Weight 78.018 kg Assessment/Plan Plan: Date: 03/14/24 Initial Weight: 89.811 kg Initial BMI: 36.8 Current Weight: 78.018 kg Current BMI: 31.9 Type of Surgery: Total Volume in Band: 0 Previous Volume: Volume Removed: Volume Added: Band Size:
== END ==
LOC: BARWHC3 15:44
PROVIDERS: ATTEND Surgery Plastic and Reconstructive Surgery
DX: E66.01 Morbid (severe) obesity due to excess calories (principal); G89.29 Other chronic pain; Z68.32 Body mass index [BMI] 32.0-32.9, adult
CPT/HCPCS: 99211

== ENCOUNTER 2024-03-19 07:13 | Day surgery (SDC) | payer BC ==
[2024-03-19] MEDS: IV FLUID CONTINUATION 1,000 ML IV ONE (07:25)
[2024-03-19 07:31] VITALS: TEMP 97
[2024-03-19 07:41] LABS: Glucose,Whole Blood 92 mg/dL (70-110)
[2024-03-19] MEDS: LACTATED RINGERS 1,000 ML IV SCH (07:41)
--- NOTE | 2024-03-19 07:46 | P.GSHP ---
History of Present Illness H&P Date: 03/19/24 CHIEF COMPLAINT: GERD HISTORY OF PRESENT ILLNESS: The patient is a 48-year-old female who presents reports gastroesophageal reflux disease. Upper endoscopy was offered for further evaluation and management. PAST MEDICAL HISTORY: Please see list. PAST SURGICAL HISTORY: Please see list. MEDICATIONS: Please see list. ALLERGIES: Please see list. SOCIAL HISTORY: No illicit drug use FAMILY HISTORY: No reports of Crohn disease or ulcerative colitis. REVIEW OF ORGAN SYSTEMS: CONSTITUTIONAL: No reports of fevers or chills. GI: Denies any blood in stools or constipation. PHYSICAL EXAM: VITAL SIGNS: Stable GENERAL: Well-developed and pleasant in no acute distress. HEENT: No scleral icterus. Extraocular movements grossly intact. Moist buccal mucosa. NECK: Supple without lymphadenopathy. CHEST: Unlabored respirations. Equal bilateral excursions. CARDIOVASCULAR: Regular rate and rhythm. Distal 2+ pulses. ABDOMEN: Soft, nondistended. MUSCULOSKELETAL: No clubbing, cyanosis, or edema. ASSESSMENT: 1. Gastroesophageal reflux disease PLAN: 1. Recommend proceeding with an upper endoscopy Past Medical History Past Medical History: Diabetes Mellitus, Hyperlipidemia, Osteoarthritis (OA), Skin Disorder Additional Past Medical History / Comment(s): migraines, eczema- elbows and sides , hx anemia, hiatal hernia, difficutly swallowing. covid 1 month ago. History of Any Multi-Drug Resistant Organisms: None Reported, MRSA Date of last positivie culture/infection: 06/27/17 MDRO Source:: R BUTTOCK Past Surgical History: Bariatric Surgery, Section, Uterine Ablation Additional Past Surgical History / Comment(s): LAP BAND 2002, LAP BAND REMOVED, gastric bypass 09/17/16 panniculectomy 04-16-19, egd with stretching. wisdom teeth. Past Anesthesia/Blood Transfusion Reactions: No Reported Reaction Additional Past Anesthesia/Blood Transfusion Reaction / Comment(s): no hx blood transfusion Smoking Status: Never smoker - Past Family History Father Family Medical History: No Reported History Mother Family Medical History: No Reported History Brother(s) Family Medical History: No Reported History Sister(s) Family Medical History: No Reported History Son(s) Family Medical History: No Reported History Medications and Allergies Home Medications Medication Instructions Recorded Confirmed Type Biotin 5 mg PO DAILY 01/06/16 03/19/24 History Escitalopram [Lexapro] 10 mg PO HS 01/06/16 03/19/24 History metFORMIN HCL [Glucophage] 1,000 mg PO BID 07/06/17 03/19/24 History Atorvastatin [Lipitor] 10 mg PO HS 01/27/22 03/19/24 History Empagliflozin [Jardiance] 25 mg PO DAILY 01/27/22 03/19/24 History Semaglutide [Ozempic] 1 mg SQ REYES 08/04/23 03/19/24 History Cholecalciferol [Vitamin D3 (25 25 mcg PO HS 08/09/23 03/19/24 History Mcg = 1000 Iu)] Triamterene/Hydrochlorothiazid 1 each PO DAILY 08/09/23 03/19/24 History [Triamterene-Hctz 37.5-25 mg Tb] Vitamin A(Unknown Dose) 1 tab PO HS 08/09/23 03/19/24 History Allergies Allergy/AdvReac Type Severity Reaction Status Date / Time No Known Allergies Allergy Verified 03/19/24 07:27 Surgical - Exam Vital Signs Temp Pulse Resp BP Pulse Ox 97.0 F L 84 16 148/77 99 03/19/24 07:28 03/19/24 07:28 03/19/24 07:28 03/19/24 07:28 03/19/24 07:28
[2024-03-19] MEDS ORDERED: PROPOFOL 10 MG/ML 20 ML VIAL IV ONE (08:17)
[2024-03-19] MEDS ORDERED: LIDOCAINE 1% INJ 10MG/ML (20 ML MDV) ONE (08:17)
[2024-03-19 08:39] VITALS: RESP 14
[2024-03-19 08:52] VITALS: BP 112/75; PULSE 75
--- NOTE | 2024-03-19 09:13 | P.PCN ---
Date of Procedure: 03/19/24 Description of Procedure: PREOPERATIVE DIAGNOSIS: Dysphagia. Nausea with vomiting. Epigastric abdominal pain POSTOPERATIVE DIAGNOSIS: Dysphagia. Gastrojejunal stricture without chronic ulcer without perforation OPERATION: Esophagogastrojejunoscopy with balloon dilatation from 15 to 20 mm. Diaphragmatic hiatal hernia SURGEON: Suma Noyola MD ANESTHESIA: MAC. INDICATIONS: The patient is a 48-year-old female who presents with a history of dysphagia, including new-onset nausea and vomiting. Benefits and risks of the procedure were described. Informed consent was obtained. DESCRIPTION: The patient was brought into the endoscopy suite and laid in the left lateral decubitus position. After a timeout was confirmed, the procedure was initiated. An Olympus gastroscope was passed along the posterior oropharynx down to the distal esophagus where the squamocolumnar junction was unremarkable. The gastric pouch was entered. A gastrojejunal stricture of 15 mm was found as the adult gastroscope was 9.5 mm in size. A [employer] balloon dilator was placed through the scope. Final insufflation up to 20 mm was performed with a total of 2 minutes. The scope was advanced up to 60 cm from the incisors into the Donald limb. The mucosa of the gastrojejunal anastomosis was intact. No chronic gastrojejunal marginal ulcer was encountered. No full-thickness injury was encountered. The GI tract was desufflated. The patient tolerated the procedure well. FINDINGS: Squamocolumnar junction unremarkable at 35 cm. Diaphragmatic hiatus 37 cm from the incisors Diaphragmatic hiatal hernia 2 cm, sliding Gastric pouch 6 cm Stricture of approximately 15 mm encountered. No chronic gastrojejunal ulceration encountered. Successful balloon dilatation to 20 mm. RECOMMENDATIONS: Upper endoscopy as needed.
== END 2024-03-19 09:20 | disposition home or self-care (01) ==
LOC: ORWHC2ENDO 07:13
PROVIDERS: ATTEND Surgery Plastic and Reconstructive Surgery
DX: K56.699 Other intestinal obstruction unspecified as to partial versus complete obstruction (principal); K21.9 Gastro-esophageal reflux disease without esophagitis; E11.9 Type 2 diabetes mellitus without complications; E78.5 Hyperlipidemia, unspecified; K44.9 Diaphragmatic hernia without obstruction or gangrene; G43.909 Migraine, unspecified, not intractable, without status migrainosus; M19.90 Unspecified osteoarthritis, unspecified site; F32.A Depression, unspecified; Z86.16 Personal history of COVID-19; Z98.84 Bariatric surgery status; Z79.84 Long term (current) use of oral hypoglycemic drugs; Z79.899 Other long term (current) drug therapy
CPT/HCPCS: 81025; 43245; J2003; J2704; C1726; 43249

== ENCOUNTER 2024-04-02 09:36 | Inpatient (IN) | payer BC ==
[2024-03-29 10:09] VITALS: BMI 31.6
--- NOTE | 2024-04-02 08:18 | P.GSHP ---
History of Present Illness H&P Date: 04/02/24 CHIEF COMPLAINT: Paraesophageal hiatal hernia with gastroesophageal reflux disease. HISTORY OF PRESENT ILLNESS: The patient is a 48-year-old female who presents with symptomatic paraesophageal hiatal hernia including epigastric abdominal pain over one year with gastroesophageal reflux disease. She has completed upper endoscopy workup. Now she presents for surgical intervention. PAST MEDICAL HISTORY: Please see list. PAST SURGICAL HISTORY: Please see list. MEDICATIONS: Please see list. ALLERGIES: Please see list. SOCIAL HISTORY: No illicit drug use FAMILY HISTORY: No reports of Crohn disease or ulcerative colitis. REVIEW OF ORGAN SYSTEMS: CONSTITUTIONAL: No reports of fevers or chills. GI: Denies any blood in stools or constipation. PHYSICAL EXAM: VITAL SIGNS: Stable GENERAL: Well-developed pleasant and in no acute distress. HEENT: No scleral icterus. Extraocular movements grossly intact. Moist buccal mucosa. NECK: Supple without lymphadenopathy. CHEST: Unlabored respirations. Equal bilateral excursions. CARDIOVASCULAR: Regular rate and rhythm. Distal 2+ pulses. ABDOMEN: Soft, nondistended. No peritoneal signs. MUSCULOSKELETAL: No clubbing, cyanosis, or edema. SKIN: Well-perfused. Good skin turgor. REPORTS: Cardiology risk assessment obtained. Please see chart. ASSESSMENT: 1. Diaphragmatic paraesophageal hiatal hernia with severe gastroesophageal reflux disease. PLAN: 1. Recommend proceeding with a robotic paraesophageal hiatal hernia with possible mesh. 2. Benefits and risks of surgical intervention was discussed including possibility of open technique. 3. Inpatient hospitalization recommended of 2 nights 4. DVT prophylaxis. 5. Antibiotic prophylaxis. 6. She has also completed a very low caloric high-protein diet to address underlying hepatomegaly. 7. Non narcotic pain management including abdominal wall block described 8. Blood sugar glucose described. 9. Weight loss management described. Past Medical History Past Medical History: Diabetes Mellitus, Hyperlipidemia, Osteoarthritis (OA), Skin Disorder Additional Past Medical History / Comment(s): migraines, eczema- elbows and sides , hx anemia, hiatal hernia, difficutly swallowing. covid 1 month ago. History of Any Multi-Drug Resistant Organisms: None Reported, MRSA Date of last positivie culture/infection: 06/27/17 MDRO Source:: R BUTTOCK Past Surgical History: Bariatric Surgery, Section, Uterine Ablation Additional Past Surgical History / Comment(s): LAP BAND 2002, LAP BAND REMOVED, gastric bypass 09/17/16 panniculectomy 04-16-19, egd with stretching. wisdom teeth. Past Anesthesia/Blood Transfusion Reactions: No Reported Reaction Additional Past Anesthesia/Blood Transfusion Reaction / Comment(s): no hx blood transfusion Smoking Status: Never smoker - Past Family History Father Family Medical History: No Reported History Mother Family Medical History: No Reported History Brother(s) Family Medical History: No Reported History Sister(s) Family Medical History: No Reported History Son(s) Family Medical History: No Reported History Medications and Allergies Home Medications Medication Instructions Recorded Confirmed Type Biotin 5 mg PO DAILY 01/06/16 03/29/24 History Escitalopram [Lexapro] 10 mg PO HS 01/06/16 03/29/24 History metFORMIN HCL [Glucophage] 1,000 mg PO BID 07/06/17 03/29/24 History Atorvastatin [Lipitor] 10 mg PO HS 01/27/22 03/29/24 History Empagliflozin [Jardiance] 25 mg PO DAILY 01/27/22 03/29/24 History Semaglutide [Ozempic] 1 mg SQ REYES 08/04/23 03/29/24 History Cholecalciferol [Vitamin D3 (25 25 mcg PO HS 08/09/23 03/29/24 History Mcg = 1000 Iu)] Triamterene/Hydrochlorothiazid 1 each PO DAILY 08/09/23 03/29/24 History [Triamterene-Hctz 37.5-25 mg Tb] Vitamin A(Unknown Dose) 1 tab PO HS 08/09/23 03/29/24 History Allergies Allergy/AdvReac Type Severity Reaction Status Date / Time No Known Allergies Allergy Verified 03/29/24 10:01
[~2024-04-02 09:36] MED LIST changes: +HEPARIN SODIUM,PORCINE 5,000 UNIT/ML 1 ML VIAL SQ PRN; +HYDROmorphone 0.5 MG/0.5 ML SYRINGE IVP PRN; +LIDOCAINE 1% (10MG/ML) FOR IV START INTRADERMA PRN; -LIDOCAINE 1% INJ 10MG/ML (20 ML MDV) ONE; +MIDAZOLAM 2 MG/2 ML VIAL IV PRN; +ONDANSETRON 4 MG/2 ML VIAL IVP PRN; -PROPOFOL 10 MG/ML 20 ML VIAL IV ONE; +fentaNYL (PF) 50 MCG/ML 2 ML AMP IVP PRN
[2024-04-02] MEDS: IV FLUID CONTINUATION 1,000 ML IV ONE (10:05)
[2024-04-02 10:20] LABS: Glucose,Whole Blood 82 mg/dL (70-110)
[2024-04-02] MEDS: SCOPOLAMINE 1 MG/72 HR PATCH TRANSDERM STA (10:20)
[2024-04-02] MEDS: LACTATED RINGERS 1,000 ML IV SCH (10:20)
[2024-04-02] MEDS: DEXAMETHASONE SOD PHOSPHATE 4 MG/ML 1 ML VIAL IV ONE (10:20)
[2024-04-02] MEDS: ONDANSETRON 4 MG/2 ML VIAL IVP ONE (10:20)
[2024-04-02] MEDS: ACETAMINOPHEN TAB 500 MG TAB PO PRN (10:20)
[2024-04-02] MEDS ORDERED: ROCURONIUM 10 MG/ML (5 ML VIAL) IV ONE (11:25)
[2024-04-02] MEDS ORDERED: GLYCOPYRROLATE 0.2 MG/ML 2 ML VIAL ONE (11:25)
[2024-04-02] MEDS ORDERED: PROPOFOL 10 MG/ML 20 ML VIAL IV ONE (11:25)
[2024-04-02] MEDS ORDERED: DEXAMETHASONE SOD PHOSPHATE 10 MG/ML 1 ML VIAL ONE (11:25)
[2024-04-02] MEDS ORDERED: diphenhydrAMINE 50 MG/ML 1 ML VIAL ONE (11:25)
[2024-04-02] MEDS ORDERED: PHENYLEPHRINE-0.9% NACL SYG 1,000 MCG/10 ML SYRINGE ONE (11:25)
[2024-04-02] MEDS ORDERED: LIDOCAINE 1% INJ 10MG/ML (20 ML MDV) ONE (11:25)
[2024-04-02] MEDS ORDERED: SUCCINYLCHOLINE CHLORIDE 200 MG/10 ML VIAL IV ONE (11:25)
[2024-04-02] MEDS ORDERED: fentaNYL (PF) 50 MCG/ML 2 ML AMP ONE (11:25)
[2024-04-02] MEDS ORDERED: MIDAZOLAM 2 MG/2 ML VIAL ONE (11:25)
[2024-04-02] MEDS ORDERED: NEOSTIGMINE 1 MG/ML 10 ML VIAL ONE (11:25)
[2024-04-02] MEDS: LIDOCAINE 1%-EPI 1:100,000 20 ML VIAL SQ ONE (12:06)
[2024-04-02] MEDS: LACTATED RINGERS 1,000 ML IV ONE (12:10)
[2024-04-02] MEDS ORDERED: diphenhydrAMINE 50 MG/ML 1 ML VIAL IVP PRN (17:04)
[2024-04-02] MEDS ORDERED: NALOXONE 0.4 MG/ML 1 ML VIAL IV PRN (17:04)
[2024-04-02] MEDS ORDERED: HYOSCYAMINE ORAL DROPS 1.875 MG/15 ML BOTTLE PO PRN (17:04)
[2024-04-02] MEDS ORDERED: HYDROmorphone 1 MG/ML 1 ML SYRINGE IVP PRN (17:04)
--- NOTE | 2024-04-02 17:23 | P.OP ---
Date of Procedure: 04/02/24 Description of Procedure: SURGEON: BOB SAMANIEGO MD WIRE SPIRAL BINDER: ABILIO PREOPERATIVE DIAGNOSES: 1. Diaphragmatic hiatal hernia 2. Gastroesophageal reflux disease 3. Epigastric abdominal pain 4. Hypertensive heart disease 5. Diabetes type 2, nausea dependent 6. History of gastric bypass 7. Hyperlipidemia 8. Depressive disorder 9. Obesity to excess calories, BMI 31.1 10. History of adjustable gastric band removal 11. History of panniculectomy 12. History of prior hiatal hernia repair 13. Eczema 14. History of MRSA POSTOPERATIVE DIAGNOSES: 1. Severe intra-abdominal adhesions 2. Gastroesophageal reflux disease with erosive esophagitis 3. Epigastric abdominal pain 4. Hypertensive heart disease 5. Diabetes type 2, nausea dependent 6. History of gastric bypass 7. Hyperlipidemia 8. Depressive disorder 9. Obesity to excess calories, BMI 31.1 10. History of adjustable gastric band removal 11. History of panniculectomy 12. History of prior hiatal hernia repair 13. Eczema 14. History of MRSA 15. Severe perigastric adhesions 16. Chronic cholecystitis 17. Intussusception partial bowel obstruction OPERATION: 1. Robotic-assisted da Sydnee Xi laparoscopic lysis of adhesions over 1.5 hours 2. Robotic-assisted da Sydnee Xi laparoscopic reduction of intussusception x 2 3. Intraoperative esophagogastroduodenoscopy ANESTHESIA: General with local anesthetic. ESTIMATED BLOOD LOSS: 30 mL SPECIMENS REMOVED: None COMPLICATIONS: None. FINDINGS: 1. Severe epigastric abdominal adhesions with Donald-en-Y adherent to the left upper quadrant with lysis of adhesions performed 2. Intussusception x 2 along common channel reduced with findings of partial bowel obstruction 3. Severe perigastric adhesions with prior ventral hernia repair with mesh identified without recurrent hernia 4. Very large patulous gastric pouch distorted by severe perigastric adhesions with normal contour after extensive lysis of adhesions 5. Linear erosions consistent with erosive esophagitis found on upper endoscopy INDICATIONS: The patient is a 48-year-old female with complicated history of adjustable gastric band placement with removal converted to a gastric bypass. Patient had developed intractable atypical chest pain despite antiacid therapy. Dynamic studies were performed. Patient had prior hiatal hernia repair. Benefits and risks including bleeding, infection, recurrence, dysphagia, injury to the lung, need for further surgery was described at length. Informed consent was obtained. DESCRIPTION: The patient was brought into the operating room and placed in supine position. Preoperatively she had received subcutaneous DVT prophylaxis. After general induction, the abdomen was prepped and draped in standard sterile fashion. The patient had previously voided prior to coming to the operating room. Ioban draping was placed along the abdomen. A timeout protocol was confirmed with the surgical team, for which the patient's name, procedure to be performed including DVT prophylaxis with bilateral SCDs, and preoperative antibiotics were also confirmed. A robotic da Sydnee Xi system was prepped and primed. At 12 cm from the xiphoid to just below the phantom umbilicus removed from prior panniculectomy, proposed port sites were marked with indelible marker along the left axillary line, left mid-clavicular line with each ports were marked 10 cm from each other. A 5 mm 0 degrees laparoscopic trocar entry was performed along the left upper quadrant. The abdomen was insufflated to 15 mmHg pressure she tolerated well. Severe left upper quadrant. Gastric adhesions were identified requiring extensive lysis of adhesions via the access from the right lateral abdominal wall. Diagnostic laparoscopy demonstrated no injury to bowel, viscera, or mesentery. The liver surface was unremarkable. No injury had occurred to the small bowel or viscera. Three 8 mm trocars were placed along the right lateral abdominal wall under direct realization and along the anterior axillary line. The robot was docked. Vessel sealer including graspers were used to address adhesions on the abdominal wall. The Donald gastric bypass portion was adherent to the left lateral abdominal wall which were taken down using blunt dissection including vessel sealer. Small bowel is also adherent along the upper midline also addressed using vessel sealer and blunt dissection without injury or enterotomy. Next, the small bowel was investigated from the terminal proximally with moderate tension found along the terminal ileum. Attention was brought to the Donald portion of the procedure where the small bowel was ran from the Donald towards the common channel and distally to the terminal ileum. Adhesions along the Donald were dissect using vessel sealer whereby the jejunojejunostomy was intact without internal hernia. An incision was identified approximately 80 cm from the jejunojejunostomy and reduced. More than 8 cm of intussusception was reduced. As investigation went distally, another intussusception and partial bowel obstructions was found within 100 cm of the terminal ileum. The small bowel was reduced of any pre-existing volvulus and reportedly intussusception. All small bowel was viable. Attention was now brought to the proposed hiatal hernia repair. The robot was undocked. I scrubbed back into the case. Next, one 8 mm robotic port was placed along the right upper abdomen. An 8-mm port was were placed along the left mid abdomen. The camera 12-mm port extended length was maintained along the epigastrium via the hernia defect. Another 8 mm port was placed along the left upper abdominal wall after exchanging the 5 mm port. Please note that the ports were placed at least 20 cm away from the target anatomy. Care was taken to check that each robotic arm were safely away from collision with the bed or the patient. At the epigastrium, a medium sized Leonides liver retractor was placed under direct visualization with the Iron Act Tutor placed under the right shoulder of the patient. The patient was repositioned in reverse Trendelenburg position at 25 after lowering the bed. The robot was docked above the head of the patient. Using a grasper for arm 3, a grasper for arm 2, including hook cautery for arm 1, the robotic system was docked and primed as described. Instruments were interchanged by the resident programs assistant . I had sat at the console. The gastrohepatic ligament was scarred with features of degraded mesh from prior hiatal hernia. Careful dissection using scissors with cautery including vessel sealer was used to remove perigastric adhesions including the gastric pouch adherent to the liver surface and abdominal wall. Circumferentially the adhesions were taken down removing the distortion of the gastric pouch from coiled onto itself to straight contour. A moderately large gastric pouch was found. Upon careful inspection along the hiatus, no recurrent hiatal hernia was found. An upper endoscopy was performed to confirm findings. I went to the head of the bed to perform intraoperative esoph agogastroduodenoscopy. An Olympus gastroscope was passed through posterior oropharynx, where the GE junction was found distal to the diaphragmatic hiatus. The gastric pouch was moderately large however now the contour straight confirm from the laparoscopic portion of the case. Linear erosions consistent with erosive gastritis and reflux disease was found. The GI tract was desufflated. This concluded the endoscopic portion of the case. The laparoscopic portion of the case was resumed whereby moderate adhesions about the gallbladder was found with mildly thickened gallbladder wall consisten t with chronic cholecystitis. (As consent for cholecystectomy was not obtained, defer cholecystectomy will be proposed.) The robot was undocked from the patient. I re-scrubbed into the case. All instruments and pneumoperitoneum were evacuated from the abdominal cavity. Incisions were reapproximated using 4-0 Monocryl in an interrupted subcuticular fashion. Liquid glue was applied to the skin. Local anesthetic was infiltrated in all wounds for postop analgesia. Multiple intra-abdominal films were obtained. At the end of the procedure, needle, sponge, and instrument count was verified correct by the rn neurosurgical. The patient had tolerated the procedure well and was taken to the postanesthesia unit in stable condition. Intraoperative films were reviewed with the patient's family who was pleased with the level of care.
[2024-04-02 17:39] LABS: Glucose,Whole Blood 135 mg/dL (70-110)
[2024-04-02] MEDS: SODIUM CHLORIDE 0.9% 2,000 ML IV ONE (18:46)
[2024-04-02] MEDS: ACETAMINOPHEN IV (For NPO) 1,000 MG in EMPTY BAG 1 BAG IVPB SCH (18:50)
[2024-04-02] MEDS: ONDANSETRON 4 MG/2 ML VIAL IVP SCH (18:50)
[2024-04-02] MEDS: KETOROLAC 15 MG/ML 1 ML VIAL IVP SCH (18:50)
[2024-04-02] MEDS: DEXAMETHASONE SOD PHOSPHATE 4 MG/ML 1 ML VIAL IVP SCH (18:50)
[2024-04-02] MEDS: SIMETHICONE 40 MG/0.6 ML DROPS 2,000 MG/30 ML BOTTLE PO SCH (19:57)
[2024-04-02 20:35] LABS: Glucose,Whole Blood 133 mg/dL (70-110)
[2024-04-02] MEDS: 0.9% NACL WITH KCL 20 MEQ/L 1,000 ML IV SCH (20:44)
[2024-04-02] MEDS: PANTOPRAZOLE 40 MG/10 ML VIAL IV SCH (20:46)
[2024-04-02] MEDS: metFORMIN 500 MG TAB PO SCH (20:49)
[2024-04-02] MEDS: ALBUTEROL NEBULIZED 2.5 MG/3 ML INHALATION SCH (20:56)
[2024-04-03 06:32] LABS: Glucose,Whole Blood 102 mg/dL (70-110)
[2024-04-03 07:44] VITALS: BP 117/73; PULSE 82; RESP 18; TEMP 98.2
[2024-04-03] MEDS: TRIAMTERENE-HCTZ 37.5-25MG 1 EACH CAP PO SCH (09:07)
[2024-04-03] MEDS: DAPAGLIFLOZIN PROPANEDIOL 10 MG TABLET PO SCH (09:08)
[2024-04-03 11:27] LABS: Glucose,Whole Blood 100 mg/dL (70-110)
--- NOTE | 2024-04-03 11:41 | P.DS ---
Providers Date of admission: 04/02/24 09:36 Expected date of discharge: 04/03/24 Attending physician: Suma Noyola Consults: 04/02/24 08:23 Consult Physician Routine Consulting Provider: [facility] Consult Reason/Comments: [facility] Do you want consulting provider notified?: Yes Primary care physician: Brenden Chicas [facility] Course: Discharge diagnosis 1. Severe intra-abdominal adhesions 2. Gastroesophageal reflux disease with erosive esophagitis 3. Epigastric abdominal pain 4. Hypertensive heart disease 5. Diabetes type 2, nausea dependent 6. History of gastric bypass 7. Hyperlipidemia 8. Depressive disorder 9. Obesity to excess calories, BMI 31.1 10. History of adjustable gastric band removal 11. History of panniculectomy 12. History of prior hiatal hernia repair 13. Eczema 14. History of MRSA 15. Severe perigastric adhesions 16. Chronic cholecystitis 17. Intussusception partial bowel obstruction Hospital course The patient is a 48-year-old female with complicated history of adjustable gastric band placement with removal converted to a gastric bypass. Patient had developed intractable atypical chest pain despite antiacid therapy. Patient is status post robotic assisted laparoscopic lysis of adhesions and reduction of intussusception. Patient's pain is controlled. She is tolerating diet. She has been up and ambulating. She denies any difficulty urinating. She is afebrile. She is stable for discharge. Physician Bacteriology Professor note has been reviewed by physician. Signing provider agrees with the documented findings, assessment, and plan of care. Please see additional documentation below. As above. Patient had attempted hiatal hernia repair however with findings of severe intra-abdominal adhesions including distortion of her gastric bypass contributing to underlying reflux and perception of recurrent hiatal hernia. New findings of intussusception were identified and corrected. Prior to discharge, patient was feeling well and stable for discharge. Procedures: OPERATION: 1. Robotic-assisted da Sydnee Xi laparoscopic lysis of adhesions over 1.5 hours 2. Robotic-assisted da Sydnee Xi laparoscopic reduction of intussusception x 2 3. Intraoperative esophagogastroduodenoscopy ANESTHESIA: General with local anesthetic. ESTIMATED BLOOD LOSS: 30 mL SPECIMENS REMOVED: None COMPLICATIONS: None. FINDINGS: 1. Severe epigastric abdominal adhesions with Donald-en-Y adherent to the left upper quadrant with lysis of adhesions performed 2. Intussusception x 2 along common channel reduced with findings of partial bowel obstruction 3. Severe perigastric adhesions with prior ventral hernia repair with mesh identified without recurrent hernia 4. Very large patulous gastric pouch distorted by severe perigastric adhesions with normal contour after extensive lysis of adhesions 5. Linear erosions consistent with erosive esophagitis found on upper endoscopy Patient Condition at Discharge: Stable Plan - Discharge Summary Discharge Rx Participant: No New Discharge Prescriptions: New Acetaminophen Oral Susp [Tylenol] 1,000 mg PO Q6H #400 ml Simethicone 40 mg/0.6 ml Drops [Mylicon Drops] 40 mg PO PCHS PRN #30 ml PRN Reason: gas Continue metFORMIN HCL [Glucophage] 1,000 mg PO BID Empagliflozin [Jardiance] 25 mg PO DAILY Semaglutide [Ozempic] 1 mg SQ REYES Triamterene/Hydrochlorothiazid [Triamterene-Hctz 37.5-25 mg Tb] 1 each PO DAILY Discontinued Biotin 5 mg PO DAILY Escitalopram [Lexapro] 10 mg PO HS Atorvastatin [Lipitor] 10 mg PO HS Vitamin A(Unknown Dose) 1 tab PO HS Cholecalciferol [Vitamin D3 (25 Mcg = 1000 Iu)] 25 mcg PO HS Discharge Medication List metFORMIN HCL [Glucophage] 1,000 mg PO BID 07/06/17 [History] Empagliflozin [Jardiance] 25 mg PO DAILY 01/27/22 [History] Semaglutide [Ozempic] 1 mg SQ REYES 08/04/23 [History] Triamterene/Hydrochlorothiazid [Triamterene-Hctz 37.5-25 mg Tb] 1 each PO DAILY 08/09/23 [History] Acetaminophen Oral Susp [Tylenol] 1,000 mg PO Q6H #400 ml 04/03/24 [Rx] Simethicone 40 mg/0.6 ml Drops [Mylicon Drops] 40 mg PO PCHS PRN #30 ml 04/03/24 [Rx] Follow up [facility]ment(s[place]Ref[place] - 04/06/24 9:00 am Patient Instructions/Handouts: Lysis of Abdominal Adhesions (DC) Activity/Diet/Wound Care/Special Instructions: No lifting over 4 pounds in 4 weeks You May shower. No bath tub soaks for two weeks Use Tylenol scheduled for the next 24-48 hours for best pain relief. Use ice along incisions for the today to prevent swelling. Hold on taking vitamins, Lipitor and Lexapro due to increased bleeding risk until seen by surgeon Discharge Disposition: HOME SELF-CARE
[2024-04-04] MEDS ORDERED: bisacodyL 5 MG TABLET.DR PO PRN (08:00)
--- NOTE | 2024-04-05 14:51 | CDI ---
Documentation Clarification Form Date: 04/05/2024 02:21:00 PM From: Priyanka Juárez RN, CCDS Email: [email or web address] Admit Date: 04/02/2024 09:36:00 AM Patient Name: Ruthie Peters Visit Number: [id number] Discharge Date: 04/03/2024 01:02:00 PM ATTENTION: The Clinical Documentation Specialists (CDI) and [facility] Coding Staff appreciate your assistance in clarifying documentation. Please respond to the clarification below the line at the bottom and electronically sign. The CDI & [facility] Coding staff will review the response and follow-up if needed. Please note: Queries are made part of the Legal Health Record. If you have any questions, please contact the author of this message via ITS. Doctor Suma Noyola Volvulus is documented in the 04/02 procedure note, but is not noted in subsequent documentation. Clarification is requested. History/Risk Factors: complicated history of adjustable gastric band placement with removal converted to a gastric bypass. Patient had developed intractable atypical chest pain despite antacid therapy. S/P GEO, reduction of intussusception and EGD. Clinical Indicators: 04/02 Procedure note: "Severe epigastric abdominal adhesions with Donald-en-Y adherent to the left upper quadrant with lysis of adhesions performed. Intussusception x 2 along common channel reduced with findings of partial bowel obstruction. Severe perigastric adhesions with prior ventral hernia repair with mesh identified without recurrent hernia." "More than 8 cm of intussusception was reduced. As investigation went distally, another intussusception and partial bowel obstruction was found within 100 cm of the terminal ileum.The small bowel was reduced of any pre-existing volvulus and reportedly intussusception. All small bowel was viable." Treatment: The small bowel was reduced of any pre-existing volvulus and reported intussusception Please clarify if the volvulus was: [ x ] Volvulus confirmed, resolved [ ] Volvulus ruled out [ ] Other condition, please specify [ ] Unable to determine MTDD
[2024-04-08] MEDS ORDERED: Semaglutide [Ozempic] 0.25 MG/0.368 ML Pen.Injctr SQ SCH (17:07)
== END 2024-04-03 13:02 | disposition home or self-care (01) | DRG 326 ==
LOC: 2ORMAIN 09:36 → 4SSUR 17:25
PROVIDERS: ADMIT Surgery Plastic and Reconstructive Surgery; ATTEND Surgery Plastic and Reconstructive Surgery
PROC: 0BQT4ZZ Repair Diaphragm, Percutaneous Endoscopic Approach (ICD-10-PCS; 2024-04-02)
PROC: 0DS84ZZ Reposition Small Intestine, Percutaneous Endoscopic Approach (ICD-10-PCS; 2024-04-02)
PROC: 0DJ08ZZ Inspection of Upper Intestinal Tract, Via Natural or Artificial Opening Endoscopic (ICD-10-PCS; 2024-04-02)
PROC: 8E0W4CZ Robotic Assisted Procedure of Trunk Region, Percutaneous Endoscopic Approach (ICD-10-PCS; 2024-04-02)
PROC: 0DNW4ZZ Release Peritoneum, Percutaneous Endoscopic Approach (ICD-10-PCS; principal; 2024-04-02 11:25)
DX: K21.00 Gastro-esophageal reflux disease with esophagitis, without bleeding (principal); K56.2 Volvulus; K56.1 Intussusception; K22.10 Ulcer of esophagus without bleeding; K56.51 Intestinal adhesions [bands], with partial obstruction; E11.9 Type 2 diabetes mellitus without complications; E66.9 Obesity, unspecified; E78.5 Hyperlipidemia, unspecified; F32.A Depression, unspecified; K44.9 Diaphragmatic hernia without obstruction or gangrene; Z68.31 Body mass index [BMI] 31.0-31.9, adult; Z98.84 Bariatric surgery status; Z79.84 Long term (current) use of oral hypoglycemic drugs; Z79.899 Other long term (current) drug therapy; Z86.14 Personal history of Methicillin resistant Staphylococcus aureus infection; K82.8 Other specified diseases of gallbladder; K81.1 Chronic cholecystitis; K25.9 Gastric ulcer, unspecified as acute or chronic, without hemorrhage or perforation
CPT/HCPCS: 81025

== ENCOUNTER → 2024-04-06 | Outpatient (CLI) | payer BC ==
--- NOTE | 2024-04-06 10:15 | P.BASOAP ---
Subjective Progress Note Date: 04/06/24 Previous epigastric Omar pain reflux resolved after lysis of adhesions and reduction of intussusception. Anticipated return to work April 30. All incisions look well without infection. May be diet as tolerated. Assessment/Plan Plan: Date: Initial Weight: 89.811 kg Initial BMI: Current Weight: Current BMI: Type of Surgery: Total Volume in Band: 0 Previous Volume: Volume Removed: Volume Added: Band Size:
[2024-04-06 10:46] VITALS: BP 124/88; PULSE 98; RESP 16; TEMP 99.2; BMI 31.2
== END ==
LOC: BARWHC3 08:52
PROVIDERS: ATTEND Surgery Plastic and Reconstructive Surgery
DX: E66.01 Morbid (severe) obesity due to excess calories (principal); Z68.31 Body mass index [BMI] 31.0-31.9, adult
CPT/HCPCS: 99211

== ENCOUNTER 2024-11-05 16:33 | Emergency (ER) | payer BC ==
--- NOTE | 2024-11-05 17:00 | ED ---
General Adult HPI - General Chief complaint: Allergic Reaction Stated complaint: R arm sting/allergy Time Seen by Provider: 11/05/24 16:56 Source: patient, RN notes reviewed Mode of arrival: ambulatory Limitations: no limitations - History of Present Illness Initial comments: 49-year-old female presenting to emergency department with concerns for a bite/ insect sting that occurred an hour prior to arrival on her right elbow. Patient states that she was taking her dog outside for an she felt a sting to her elbow and is concerned that this may have been from a bee as she is allergic to bees. Patient states that her tongue started to feel "strange "and tingly and she felt mildly short of breath which prompted her to take Benadryl. Currently patient denies difficulty breathing however states that her tongue still feels mildly swollen. - Related Data Home Medications Medication Instructions Recorded Confirmed metFORMIN HCL [Glucophage] 1,000 mg PO BID 07/06/17 04/02/24 Empagliflozin [Jardiance] 25 mg PO DAILY 01/27/22 04/02/24 Semaglutide [Ozempic] 1 mg SQ REYES 08/04/23 04/02/24 Triamterene/Hydrochlorothiazid 1 each PO DAILY 08/09/23 04/02/24 [Triamterene-Hctz 37.5-25 mg Tb] Previous Rx's Medication Instructions Recorded Acetaminophen Oral Susp [Tylenol] 1,000 mg PO Q6H #400 ml 04/03/24 Simethicone 40 mg/0.6 ml Drops 40 mg PO PCHS PRN #30 ml 04/03/24 [Mylicon Drops] EPINEPHrine (Auto Inject) [Epipen] 0.3 mg IM ONCE PRN #1 each 11/05/24 Allergies Allergy/AdvReac Type Severity Reaction Status Date / Time bee venom protein (honey bee) Allergy Unknown Verified 11/05/24 16:38 Childhood Review of Systems ROS Statement: Those systems with pertinent positive or pertinent negative responses have been documented in the HPI. ROS Other: All systems not noted in ROS Statement are negative. Past Medical History Past Medical History: Diabetes Mellitus, Hyperlipidemia, Osteoarthritis (OA), Skin Disorder Additional Past Medical History / Comment(s): migraines, eczema- elbows and sides , hx anemia, hiatal hernia, difficutly swallowing. covid 1 month ago. History of Any Multi-Drug Resistant Organisms: None Reported, MRSA Date of last positivie culture/infection: 06/27/17 MDRO Source:: R BUTTOCK Past Surgical History: Bariatric Surgery, Section, Uterine Ablation Additional Past Surgical History / Comment(s): LAP BAND 2002, LAP BAND REMOVED, gastric bypass 09/17/16 panniculectomy 04-16-19, egd with stretching. wisdom teeth. Past Anesthesia/Blood Transfusion Reactions: No Reported Reaction Additional Past Anesthesia/Blood Transfusion Reaction / Comment(s): no hx blood transfusion Past Psychological History: Depression Smoking Status: Never smoker Past Alcohol Use History: None Reported Past Drug Use History: None Reported - Past Family History Father Family Medical History: No Reported History Mother Family Medical History: No Reported History Brother(s) Family Medical History: No Reported History Sister(s) Family Medical History: No Reported History Son(s) Family Medical History: No Reported History General Exam Limitations: no limitations General appearance: alert, in no apparent distress Respiratory exam: Present: normal lung sounds bilaterally. Absent: respiratory distress, wheezes, rales, rhonchi, stridor Cardiovascular Exam: Present: regular rate, normal rhythm, normal heart sounds. Absent: systolic murmur, diastolic murmur, rubs, gallop, clicks GI/Abdominal exam: Present: soft, normal bowel sounds. Absent: distended, tenderness, guarding, rebound, rigid Extremities exam: Present: normal inspection, full ROM, normal capillary refill. Absent: tenderness, pedal edema, joint swelling, calf tenderness Back exam: Present: normal inspection Neurological exam: Present: alert, oriented X3, CN II-XII intact Skin exam: Present: warm, dry, intact, normal color. Absent: rash Course Vital Signs 11/05/24 11/05/24 11/05/24 16:34 17:02 17:35 Temperature 99 F 98.0 F Pulse Rate 118 H 70 Respiratory 20 18 20 Rate Blood Pressure 169/93 128/84 O2 Sat by Pulse 95 95 Oximetry Medical Decision Making - Medical Decision Making Was pt. sent in by a medical professional or institution (, PA, MACHINE SETTER, urgent care, hospital, or skilled nursing...) When possible be specific @ -No Did you speak to anyone other than the patient for history (EMS, parent, family, police, friend...)? What history was obtained from this source @ -No Did you review nursing and triage notes (agree or disagree)? Why? @ -I reviewed and agree with nursing and triage notes Were old charts reviewed (outside hosp., previous admission, EMS record, old EKG, old radiological studies, urgent care reports/EKG's, skilled nursing records)? Report findings @ -No old charts were reviewed Differential Diagnosis (chest pain, altered mental status, abdominal pain women, abdominal pain men, vaginal bleeding, weakness, fever, dyspnea, syncope, headache, dizziness, GI bleed, back pain, seizure, CVA, palpatations, mental health, musculoskeletal)? @ -Animal bite, animal sting, anaphylaxis, allergic reaction, this is not all- inclusive EKG interpreted by me (3pts min.). @ -None X-rays interpreted by me (1pt min.). @ -None done CT interpreted by me (1pt min.). @ -None done U/S interpreted by me (1pt. min.). @ -None done What testing was considered but not performed or refused? (CT, X-rays, U/S, labs)? Why? @ -None What meds were considered but not given or refused? Why? @ -None Did you discuss the management of the patient with other professionals (professionals i.e. , PA, MACHINE SETTER, lab, RT, psych nurse, social economist, social media specialist, teacher, marketing and communications officer, case reviewer)? Give summary @ -No Was smoking cessation discussed for >3mins.? @ -No Was critical care preformed (if so, how long)? @ -No Were there social determinants of health that impacted care today? How? (Homelessness, low income, unemployed, alcoholism, drug addiction, transportation, low edu. Level, literacy, decrease access to med. care, longterm, rehab)? @ -No Was there de-escalation of care discussed even if they declined (Discuss DNR or withdrawal of care, Hospice)? DNR status @ -No What co-morbidities impacted this encounter? (DM, HTN, Smoking, COPD, CAD, Cancer, CVA, ARF, Chemo, Hep., AIDS, mental health diagnosis, sleep apnea, morbid obesity)? @ -None Was patient admitted / discharged? Hospital course, mention meds given and route, prescriptions, significant lab abnormalities, going to OR and other pertinent info. @ -Discharge. 49-year-old female with signs emergency room concerns for potential allergic reaction. Overall patient is well-appearing in no signs respiratory distress, oxygenation is 95% on room air. Patient is protecting airway appropriately with no signs of oropharyngeal edema, tongue or lip edema. Patient abided with IM Solu-Medrol and oral Pepcid. Patient took Benadryl prior to arrival. Observation for over 1 hour after medications patient is feel ing improved and again is not exhibiting signs of respiratory distress. Patient stable for discharge and provided with prescription for EpiPen as needed. Case discussed with Dr. Pate Undiagnosed new problem with uncertain prognosis? @ -No Drug Therapy requiring intensive monitoring for toxicity (Heparin, Nitro, Insulin, Cardizem)? @ -No Were any procedures done? @ -No Diagnosis/symptom? @ -bug bite Acute, or Chronic, or Acute on Chronic? @ -acute Uncomplicated (without systemic symptoms) or Complicated (systemic symptoms)? @ -uncomplicated Side effects of treatment? @ -No Exacerbation, Progression, or Severe Exacerbation? @ -No Poses a threat to life or bodily function? How? (Chest pain, [place], SC, pneumonia, PE, COPD, DKA, ARF, appy, cholecystitis, CVA, Diverticulitis, Homicidal, Suicidal, threat to staff... and all critical care pts) @ -No Disposition Clinical Impression: Bug bite Disposition: HOME SELF-CARE Condition: Good Instructions (If sedation given, give patient instructions): Insect Bite or Sting (ED) Additional Instructions: Please return to the Emergency Department if symptoms worsen or any other concerns. Prescriptions: EPINEPHrine (Auto Inject) [Epipen] 0.3 mg IM ONCE PRN #1 each PRN Reason: Anaphylaxis Is patient prescribed a controlled substance at d/c from ED?: No Referrals: Brenden Alvarez [Primary Care Provider] - 1-2 days Time of Disposition: 18:04
[2024-11-05] MEDS: FAMOTIDINE 20 MG TAB PO STA (17:11)
[2024-11-05] MEDS: methylPREDNISolone SOD SUCCI 125 MG/2 ML VIAL IM ONE (17:11)
[2024-11-05 17:37] VITALS: RESP 20
[2024-11-05 18:55] VITALS: BP 132/79; PULSE 82; TEMP 97.9
== END 2024-11-05 18:55 | disposition home or self-care (01) ==
LOC: EC 16:33
DX: T63.481A Toxic effect of venom of other arthropod, accidental (unintentional), initial encounter (principal); Z91.030 Bee allergy status
CPT/HCPCS: 99283; 96372; J2919